=== PATIENT | male | born 1950 | race Caucasian/White ===

== ENCOUNTER 2018-05-04 19:53 | Emergency (ER) | payer OTHER ==
[~2018-05-04] VITALS: Ht 170.2 cm; Wt 152.0 kg
[~2018-05-04 19:53] MED LIST: ADULT LOW DOSE81 MG OR; ALDACTONE50 MG PO; ALLOPURINOL 30300 M2 PO; AMLODIPINE BESYL5 MG PO; ATIVAN1 MG PO; AUGMENTIN 875875 MG PO; COUMADIN 10MG T10 M1; CYTOMEL 5MCG TA5 MCG PO; DEPAKOTE ER500 MG PO; DILTIAZEM 24HR180 MG; FISH OIL 1,0001 EAC5 OR; FUROSEMIDE 20 M20 M1 PO; GLUCOPHAGE500 MG PO; HYDROCHLOROTHIA25 M1 OR; HYDROXYZINE HCL25 M1; INVEGA3 MG OR; K-DUR10 ME1 OR; LANOXIN 0.120.125 M1; LANTUS SUBQ; LASIX 40 MG TAB40 M1 OR; LASIX 40 MG TAB40 M2 PO; LEVOXYL125 MCG PO; LEVOXYL150 MCG OR; LISINOPRIL2.5 MG; LISINOPRIL40 MG OR; MAGNESIUM400 MG; NAPROSYN500 MG PO; NIFEDIPINE ER90 M1 OR; OS-CAL 500+D C1 EACH; POTASSIUM20 PO; RANITIDINE 150150 M1; SEROQUEL XR 30300 MG PO; SIMVASTATIN20 MG; SIMVASTATIN80 MG PO; SLOW-MAG64 MG; SMOOTHLAX17 GM OR; THEREMS M; TRICOR OR; TYLENOL325 MG PO; XANAX 0.25 MG0.25 MG PO; XARELTO20 MG PO; ZANTAC 150MG T150 MG PO; ZAROXOLYN 2.5M2.5 M1; ZETIA10 MG; ZETIA10 MG PO; ZOCOR40 MG PO
[2018-05-04 19:54] VITALS: BP 144/71
[2018-05-04 20:21] LABS: ABSOLUTE NEUTROPHILS 3.9 thou/uL (1.4-8.2); EOSINOPHILS 0.9 % (0.0-3.0); WBC 8.7 thou/uL (4.0-11.0)
[2018-05-04 20:23] LABS: BASOPHILS 1.1 % (0.0-2.0); HEMATOCRIT 43.4 % (42.0-52.0); HEMOGLOBIN 15.1 gm/dL (14.0-18.0); LYMPHOCYTES 42.6 % (24.0-44.0); MCH 30.7 pg (26.0-34.0); MCHC 34.7 g/dL (28.0-37.0); MCV 88.4 fL (80.0-100.0); MONOCYTES 10.8 % (1.0-8.0); PLATELET COUNT 259 thou/uL (150-400); POLYS 44.6 % (36.0-66.0); RBC 4.91 mil/uL (4.50-6.00); RDW 14.5 % (10.5-14.5)
[2018-05-04 20:25] LABS: CALCIUM 10.7 mg/dL (8.5-10.1); CREATININE 1.7 mg/dL (0.7-1.3)
[2018-05-04 20:29] LABS: POTASSIUM 2.4 mmol/L (3.5-5.1)
[2018-05-04 20:39] LABS: APTT 39.9 Seconds (24.5-32.8); INR 1.3; PROTIME 13.3 Seconds (9.3-11.4)
[2018-05-04] MEDS ORDERED: POTASSIUM20 PO (23:47)
--- NOTE | 2018-05-05 10:52 | EKG ---
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 ��������������������������������������������� <ELECTRONICALLY SIGNED> ���������������������������������������� By: Lloyd Vasquez MD ��������������������������������������������� [id number] 22 22 Lloyd Vasuqez MD /PABLO
== END 2018-05-05 01:13 ==
LOC: ER 19:53
PROVIDERS: Emergency Medicine
DX: E87.6 Hypokalemia (principal); R10.84 Generalized abdominal pain; Z79.01 Long term (current) use of anticoagulants; I10 Essential (primary) hypertension; F03.90 Unspecified dementia, unspecified severity, without behavioral disturbance, psychotic disturbance, mood disturbance, and anxiety; M10.9 Gout, unspecified; E78.5 Hyperlipidemia, unspecified; F31.9 Bipolar disorder, unspecified; E03.9 Hypothyroidism, unspecified; E66.01 Morbid (severe) obesity due to excess calories; I73.9 Peripheral vascular disease, unspecified; I48.91 Unspecified atrial fibrillation; Z87.891 Personal history of nicotine dependence; Z68.43 Body mass index [BMI] 50.0-59.9, adult

== ENCOUNTER 2018-12-01 09:26 | Inpatient (IN) | payer OTHER ==
[~2018-12-01] VITALS: Ht 172.7 cm; Wt 144.2 kg
[2018-12-01 09:27] VITALS: BP 153/81
[2018-12-01 09:48] LABS: BASOPHILS 0.4 % (0.0-2.0); HEMATOCRIT 40.2 % (42.0-52.0); HEMOGLOBIN 13.6 gm/dL (14.0-18.0); LYMPHOCYTES 5.8 % (24.0-44.0); MCHC 33.9 g/dL (28.0-37.0); MCV 88.4 fL (80.0-100.0); MONOCYTES 6.6 % (1.0-8.0); PLATELET COUNT 230 thou/uL (150-400); POLYS 87.2 % (36.0-66.0); RBC 4.54 mil/uL (4.50-6.00); RDW 13.9 % (10.5-14.5); WBC 19.5 thou/uL (4.0-11.0)
[2018-12-01 09:48] LABS: URINE BLOOD 3+ (Negative); URINE CLARITY CLEAR; URINE GLUCOSE-RANDOM* NEGATIVE (Negative); URINE KETONES TRACE (Negative); URINE LEUKOCYTES-REFLEX NEGATIVE (Negative); URINE NITRITE-REFLEX NEGATIVE (Negative); URINE PROTEIN (DIPSTICK) 3+ (Negative); URINE SPECIFIC GRAVITY 1.025 (1.005-1.035)
[2018-12-01] MEDS ORDERED: LASIX 80 MG TAB80 MG PO (09:51)
[2018-12-01] MEDS ORDERED: LEVOTHYROXINE150 MCG PO (09:53)
[2018-12-01] MEDS ORDERED: LORAZEPAM 1 MG T1 MG PO (09:54)
[2018-12-01] MEDS ORDERED: METOLAZONE 2.52.5 M1 PO (09:55)
[2018-12-01 09:56] LABS: URINE COLOR DARK YELLOW
[2018-12-01] MEDS ORDERED: LIPITOR40 MG PO (09:57)
[2018-12-01 09:58] LABS: ICTOTEST (BILI CONFIRMATORY) Negative (Negative); URINE BILIRUBIN NEGATIVE (Negative)
[2018-12-01] MEDS ORDERED: FISH OIL 1,0001 EAC9 PO (09:58)
[2018-12-01 09:59] LABS: ALBUMIN 2.8 g/dL (3.4-5.0); CALCIUM 9.2 mg/dL (8.5-10.1); CREATININE 1.8 mg/dL (0.7-1.3); DIRECT BILIRUBIN 0.3 mg/dL (<0.1-0.3); MAGNESIUM 1.5 mg/dL (1.8-2.4); TOTAL BILIRUBIN 0.8 mg/dL (<0.1-1.0); TOTAL PROTEIN 7.8 g/dL (6.4-8.2)
[2018-12-01] MEDS ORDERED: LACTULOSE10 GM/152 PO (09:59)
[2018-12-01] MEDS ORDERED: FLUOXETINE HCL20 M1 PO (09:59)
[2018-12-01 10:01] LABS: POTASSIUM 2.7 mmol/L (3.5-5.1)
[2018-12-01] MEDS ORDERED: OYSTER SHELL 51 EACH PO (10:02)
[2018-12-01] MEDS ORDERED: BOUDREAUXS28 GM TOP (10:04)
[2018-12-01 10:15] LABS: CASTS None Seen /LPF (None Seen); SQUAMOUS 0-3 Few /LPF (0-3)
[2018-12-01 10:16] LABS: BACTERIA-REFLEX 1-9 Few /HPF (None Seen); CRYSTALS None Seen /LPF (None Seen); MUCUS 4-6 Moderate strn/LPF (None Seen); URINE RBC 0-2 Rare /HPF (0-2); URINE WBC-REFLEX 0-5 Rare /HPF (0-5)
[2018-12-01 10:18] LABS: URINE SODIUM-RANDOM* 31 mmol/L
[2018-12-01 10:26] LABS: URINE CREATININE-RANDOM* <13 mg/dL
--- NOTE | 2018-12-01 16:25 | NUR ---
VAT CONSULTED FOR A LINE FOR THIS PT IN THE ER FOR POSS SEPSIS AND TONI. A 5FRTLPOWERLINE PLACED RT IJ. TIP IN THE CAJ AND RELEASED FOR USE. FOR DETAILS PLEASE SEE THE INSERTION NI
[2018-12-01 16:37] VITALS: BP 149/78
[2018-12-01 17:27] LABS: TOTAL PROTEIN 7.9 g/dL (6.4-8.2)
[2018-12-01 18:15] LABS: TSH 0.526 uIU/mL (0.358-3.740)
[2018-12-01 20:55] VITALS: BP 118/96
[2018-12-01 21:25] VITALS: BP 148/87
[2018-12-02 02:43] LABS: HEMATOCRIT 32.9 % (42.0-52.0); MCH 29.4 pg (26.0-34.0); MCHC 32.8 g/dL (28.0-37.0); MCV 89.8 fL (80.0-100.0); RBC 3.67 mil/uL (4.50-6.00); RDW 14.2 % (10.5-14.5); WBC 12.5 thou/uL (4.0-11.0)
[2018-12-02 02:52] LABS: CREATININE 1.3 mg/dL (0.7-1.3); MAGNESIUM 1.7 mg/dL (1.8-2.4)
[2018-12-02 03:01] LABS: CALCIUM 6.8 mg/dL (8.5-10.1); HEMOGLOBIN 10.8 gm/dL (14.0-18.0); POTASSIUM 4.9 mmol/L (3.5-5.1)
--- NOTE | 2018-12-02 03:40 | NUR ---
ADMIT FROM ER AROUND 2100. VSS. ASSESSMENT CHARTED. PT ALERT TO SELF AND PLACE AT TIMES, CONFUSED AND FORGETFUL. NO ANSWER FROM DPOA. PT ANSWERED ADMISSSION QUESTIONS THE BEST HE COULD UNABLE TO SIGN. SCHMIDT IN PLACE. PT IN BED STATED NOT SURE IF HE USES WALKER, W/C, OR CANE, HAS NOT AMBULATED THI SHIFT. 2 L NC. ABX AND FLUIDS PER EMAR. WILL CONTINUE TO MONITOR AND WITH POC.
[2018-12-02 03:45] VITALS: BP 126/69
[2018-12-02 08:22] VITALS: BP 121/69
--- NOTE | 2018-12-02 09:19 | EKG ---
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 : 1950 Requested By: Josue Flores Order Number: [id number] MD: Amrik Donaldson Measurements Intervals [place] Rate: 96 P: 180 MT: 188 QRS: -51 QRSD: 126 T: 6 QT: 422 QTc: 534 Interpretive Statements Sinus or ectopic atrial rhythm LAFB Nonspecific intraventricular conduction delay Poor R wave progression Compared to ECG 05/04/2018 21:23:48 no significant change was found Electronically Signed On 12-02-2018 9:19:20 CDT by Amrik Donaldson [email or web address] <ELECTRONICALLY SIGNED> By: Amrik Donaldson MD, FAC 12/02/18918 8 8 Amrik Donaldson MD, [facility] /EPI
--- NOTE | 2018-12-02 11:54 | NUR ---
ASSUMED PT CARE AT APPROXIMATELY 0700. PT AWAKE AND ORIENTED TO SITUATION, SELF, AND LOCATION. PT FORGETFUL. PROVIDED FREQUENT REORIENTATION. PT DENIES CHEST PAIN. PT DENIES SOB. PT DENIES ACUTE PAIN. ASSESSMENT CHARTED. FALL PRECAUTIONS IN PLACE. VITAL SIGNS STABLE. BLOOD SUGARS STABLE. PT TRANSFERRING TO [facility]. RN ON 4 RECIEVED VERBAL REPORT. RN DENIED HAVING FURTHER QUESTIONS OR CONCERNS. COMMUNICATED C PT'S DPOA THIS AM AND EDUCATED POC. DPOA STATED UNDERSTANDING AND DENIED HAVING FURTHER QUESTIONS. PT COMFORTABLE IN BED. PT TRANSFERRED OFF [facility] TRAN[facility]ORT AT APPROXIMATELY 1130.
--- NOTE | 2018-12-02 16:29 | NUR ---
PATIENT A/O ADMITS FROM [facility] WITH CELLULITIS. HE DOES NOT WEAR OXYGEN AT FACILITY BUT FEELS HE NEEDS UPON RETURN. PLAN FOR PATIENT TO RETURN TO [facility] AT [place]. UPDATED BROTHER.
--- NOTE | 2018-12-02 19:42 | NUR ---
PATIENT TRANSFER FROM [facility] AT NOON. ALERT X2, REPEATS SAME QUESTIONS, AND CALLS FOR SNACKS FREQUENTLY. POOR HISTORIAN, FROM [facility]. DR HUTSON ROUND WITH NEW ORDERS FOR WOUND CARE. MAX ASSIST OR SLIDE/JUAN MANUEL DEVICE. FALL PRECAUTIONS IN PLACE.
[2018-12-02 20:52] VITALS: BP 126/72
--- NOTE | 2018-12-03 01:56 | NUR ---
Assessments completed. pt a&ox2. pt is confused. pt pulled out picc line. pt stated that "it was hurting, so i pulled it out". catheter intact, measures 28cm where it was cut off during insertion. PHARMACOEPIDEMIOLOGIST notified. pt is very confused and agitated, trying to get out of bed and go to his room, he stated. one time dose of iv haldol was ordered. fall prec in place. will cont to monitor
[2018-12-03 04:04] VITALS: BP 98/80
[2018-12-03 07:11] LABS: HEMATOCRIT 35.8 % (42.0-52.0); HEMOGLOBIN 11.8 gm/dL (14.0-18.0); MCH 29.4 pg (26.0-34.0); MCHC 33.1 g/dL (28.0-37.0); RBC 4.02 mil/uL (4.50-6.00); RDW 14.4 % (10.5-14.5); WBC 12.2 thou/uL (4.0-11.0)
[2018-12-03 07:31] LABS: ALBUMIN 2.3 g/dL (3.4-5.0); CALCIUM 8.5 mg/dL (8.5-10.1); CREATININE 1.3 mg/dL (0.7-1.3); MAGNESIUM 1.9 mg/dL (1.8-2.4); PHOSPHORUS 1.7 mg/dL (2.5-4.9); POTASSIUM 3.5 mmol/L (3.5-5.1)
[2018-12-03 08:12] VITALS: BP 139/72
[2018-12-03 14:46] VITALS: BP 130/51
--- NOTE | 2018-12-03 15:54 | NUR ---
ASSUMED CARE OF PT AT APPROX 0700. PT IS ALERT AND ORIENTED TO SELF AND PLACE. FORGETFUL, BUT EASILY REORIENTED. DENIES PAIN AND SOA. EVEN NONLABORED BREATHING WHILE AT REST. DOES BECOME SOA WITH ACTIVITY BUT ABLE TO MAINTAIN 02 SAT >90 ON NC 02 SETTINGS. ASSESSMENT CHARTED. PT IN BEDSIDE CHAIR FOR MOST OF DAY. UPDATED ON POC. NO NEW QUESTIONS OR CONCERNS AT THIS TIME. WILL CONTINUE TO MONITOR.
[2018-12-03 22:37] VITALS: BP 141/62
--- NOTE | 2018-12-04 03:44 | NUR ---
ASSUMED CARE OF PT @1900. PT A&OX3 BUT CONFUSED AND VERY FORGETFUL. PT HAS BEEN SLEEPING ON AND OFF ALL NIGHT. PT IS NPO @MIDNIGHT FOR POSSIBLE SURGERY TODAY. PT WAS FED BEFORE MIDNIGHT BUT PT HAS BEEN REQUESTING FOOD FOR MOST OF THE NIGHT. NEW ORDERS OF GENTAMYCIN WAS GOTTEN AND APPLIED ON PATIENTS LOWER EXT AND COVERED WITH KERLIX. PICTURES WERE TAKEN. PT WAS ANXIOUS WHEN NURSE MENTIONED THAT SCHMIDT WAS TO BE TAKEN OUT. SCHMIDT STILL IN PLACE AND PATENT. PT HAS LABORED BREATHING WITH UPPER RESPIRATORY WHEEZES. RT WAS CALLED FOR PRN NEB TX. FALL PREC IN PLACE. CALL THOMPSON WITHIN REACH. WILL CONT TO MONITOR
[2018-12-04 05:41] LABS: RDW 14.5 % (10.5-14.5)
[2018-12-04 05:44] LABS: HEMATOCRIT 35.2 % (42.0-52.0); HEMOGLOBIN 11.4 gm/dL (14.0-18.0); MCH 29.2 pg (26.0-34.0); MCHC 32.5 g/dL (28.0-37.0); MCV 90.1 fL (80.0-100.0); RBC 3.91 mil/uL (4.50-6.00); WBC 13.1 thou/uL (4.0-11.0)
[2018-12-04 06:04] LABS: CALCIUM 8.6 mg/dL (8.5-10.1); CREATININE 1.2 mg/dL (0.7-1.3); MAGNESIUM 1.9 mg/dL (1.8-2.4); POTASSIUM 3.3 mmol/L (3.5-5.1)
[2018-12-04 07:17] VITALS: BP 149/77
--- NOTE | 2018-12-04 11:52 | NUR ---
RD consult received for pt with PVD/sepsis with bilateral lower extremity cellulitis. Pt with schizophrenia, bipolar, dementia and forgetful and confused. Extreme class III obesity with BMI of 48.3, slightly less from 2016 wt 325 lb. Appetite is good, asking for food. BG controlled. Geriatric COUNTER PERSON requesting high protein, low calorie supplementation-can send Ensure Max 1x day which provides 160 mary and 30g protein. Otherwise low nutrition risk
[2018-12-04 15:25] VITALS: BP 140/70
[2018-12-04 19:09] VITALS: BP 156/93
--- NOTE | 2018-12-04 19:40 | NUR ---
PT A&OX4, VSS, DENIES PAIN. SCHMIDT DC'D TODAY, PATIENT URINATING AFTER SCHMIDT REMOVAL. IV IN LEFT FOREARM REMAINS PATENT. PATIENT ON 3L O2 NC, BREATHING IN HIGH THOMAS POSITION LABORED, LUNGS CLEAR, NO WHEEZING THIS A.M. PATIENT STARTS TO HAVE SOA WHEN BED IS FLAT FOR JOHN CARE, AND WHEN PARTICIPATING IN PHYSICAL THERAPY. DRESSING CHANGED BILAT LE PER ORDERS. RIGHT LEG RED, EDEMATOUS. LEFT LEG PINK AND EDEMATOUS. EDEMA MORE PRONOUNCED IN RIGHT LEG AND FOOT. NO SIGNS OF DISTRESS, WILL CONTINUE TO MONITOR.
[2018-12-05 02:47] VITALS: BP 139/74
[2018-12-05 05:35] LABS: HEMATOCRIT 36.7 % (42.0-52.0); HEMOGLOBIN 12.4 gm/dL (14.0-18.0); MCH 29.9 pg (26.0-34.0); MCHC 33.7 g/dL (28.0-37.0); MCV 88.7 fL (80.0-100.0); RBC 4.14 mil/uL (4.50-6.00); RDW 14.8 % (10.5-14.5); WBC 14.8 thou/uL (4.0-11.0)
[2018-12-05 05:41] LABS: CALCIUM 8.6 mg/dL (8.5-10.1); MAGNESIUM 1.8 mg/dL (1.8-2.4); POTASSIUM 3.5 mmol/L (3.5-5.1)
[2018-12-05 05:45] LABS: APTT 34.5 Seconds (24.5-32.8); PROTIME 10.5 Seconds (9.3-11.4)
--- NOTE | 2018-12-05 06:48 | NUR ---
assessments completed. pt a&ox2. very forgetful and confuse. pt consisting asking over the night what time his surgery will be and if he could eat. pt has been npo after midnight. pt is incont. requires 2person assist. dressing on dharmesh. legs clean, dry and intact. legs elevated with multiple pillows. plan is to have angiogram done today. pt is wheezy and soa on exertion. breathing tx on board. v/s and o2 sats wnl. will cont to monitor
[2018-12-05 07:42] VITALS: BP 137/82
--- NOTE | 2018-12-05 12:56 | 2DMMODE ---
[facility] [address] [place] [address] 2 D/M-MODE ECHOCARDIOGRAM Name: MICHELLEMAUREEN Room #: 453-P [facility] ..#: [id number] Admission: 12/01/18 Attend Phys: Sukumar Bush, Discharge: Date of : 54 Report #: [id number] THIS REPORT FOR: //name// APPROVED REPORT Study performed: 12/05/2018 11:03:01 EXAM: Comprehensive 2D, Doppler, and color-flow Echocardiogram Patient Location: Bedside Room #: [facility] Status: routine BSA: 2.49 HR: 83 bpm BP: 137/82 mmHg Other Information Study Quality: Technically Limited/Technically Difficult Technically limited study due to body habitus, lung disease, inability to position patient. Indications Diabetes Atrial Fibrillation Dyspnea Echo Enhancing Agent Indication: Endocardial border delineation Agent(s) / Amount(s) Used: Optison 3 cc 2D Dimensions IVSd: 16.44 (7-11mm) LVOT Diam: 19.90 (18-24mm) LVDd: 43.51 mm PWd: 16.32 (7-11mm) Ascending Ao: 37.43 (22-36mm) LVDs: 27.42 (25-40mm) Aortic Root: 31.76 mm IVC: 20.00 mm Volumes Left Atrial Volume (Systole) Single Plane 4CH: 52.96 mL Single Plane 2CH: 44.13 mL LA ESV Index: 21.00 mL/m2 Aortic Valve AoV Peak Akin.: 1.50 m/s AO Peak Gr.: 9.00 mmHg LVOT Max P.02 mmHg LVOT Max V: 1.12 m/s [facility] [address] [place] [address] 2 D/M-MODE ECHOCARDIOGRAM Name: MAUREEN MARTINEZ Room #: 453-[facility]#: [id number] Admission: 12/01/18 Attend Phys: Sukumar Bush, Discharge: Date of : 54 Report #: [id number] [id number] Vmax: 2.32 cm2 Mitral Valve E/A Ratio: 1.3 MV Decel. Time: 134.40 ms MV E Max Akin.: 0.91 m/s MV A Akin.: 0.69 m/s MV PHT: 38.98 ms Pulmonary Valve PV Peak Akin.: 1.40 m/s PV Peak Gr.: 7.88 mmHg Tricuspid Valve RAP Estimate: 10.00 mmHg Left Ventricle The left ventricle is normal size. Moderate concentric left ventricular hypertrophy. Left ventricular systolic function is hyperdynamic. LVEF is 70%. This study is not technically sufficient to allow evaluation of the LV diastolic function. Right Ventricle Right ventricle appears grossly normal in size. Atria The left atrium size is normal. The right atrium size is normal. Aortic Valve The aortic valve is normal in structure. No aortic regurgitation is present. There is no aortic valvular stenosis. Mitral Valve The mitral valve is normal in structure. There is no mitral valve regurgitation noted. No evidence of mitral valve stenosis. Tricuspid Valve The tricuspid valve is normal in structure. There is no tricuspid valve regurgitation noted. Pulmonic Valve The pulmonary valve is normal in structure. Trace pulmonic regurgitation. Great Vessels The aortic root is normal in size. IVC is normal in size and [facility] [address] [place] [address] 2 D/M-MODE ECHOCARDIOGRAM Name: MAUREEN MARTINEZ Lala Room #: 453-P ADM IN M.R.#: [id number] Admission: 12/01/18 Attend Phys: Sukumar Bush, Discharge: Date of : 54 Report #: [id number] collapses <50% with inspiration. Pericardium There is no pericardial effusion. <Conclusion> technically extremely limited with decreased windows of visualization The left ventricle is normal size. LVEF is 70%. The left atrium size is normal. The right atrium size is normal. The aortic valve is normal in structure. The mitral valve is normal in structure. The tricuspid valve is normal in structure. There is no pericardial effusion. <ELECTRONICALLY SIGNED> By: Bridger Bowers MD 12/05/18 1256 1256 1256 Bridger Bowers MD /INF
--- NOTE | 2018-12-05 13:12 | NUR ---
PT HAD BEEN SCHEDULED FOR AN ANGIOGRAM TODAY BUT IT HAD BEEN POSTPONED DUE TO SOB. CARE TEAM INDICATED THAT PT IS IS PROGRESSING SLOWLY AND WILL LIKELY BE HERE OVER THE WEEKEND. PT WILL RETURN TO [facility] ONCE MEDICALLY STABLE. CM TO FOLLOW INDICATED WITH DC PLANNING.
[2018-12-05 13:43] VITALS: BP 155/99
[2018-12-05 17:32] LABS: BE(vivo) -0.8 mmol/L (-2 to +3); PCO2 45.7 mmHg (35.0-45.0); PO2 174.1 mmHg (80.0-100.0); pH 7.356 (7.360-7.450); sO2 99.1 % (92.0-98.0)
[2018-12-05 19:30] VITALS: BP 170/108
--- NOTE | 2018-12-05 20:28 | NUR ---
pt transfered from 4 W at 1900pm, PT is SOB and confused, RN has called dr , new order received, pt has one time dose lasix 40mg iv and starts IV ABX, pt's sob has improved, RN will report to next shift to keep eye on pt.
--- NOTE | 2018-12-05 21:22 | NUR ---
PT A&O TO SELF, PT ON 3L O2 NC, WHEEZING, LABORED BREATHING, SOA. VSS 02 SATS AVERAGE 96% ANGIOGRAM CANCELED D/T LABORED BREATHING. PATIENT IN HIGH FOWLERS THROUGHOUT DAY. CHEST EXAMS ORDERED BY DOCTOR. PATIENT ON 1500 MLK FLUID RESTRICTION. PATIENT HAS HEARTY APPETITE AND TOLERATING DIET. APPROX. 1700 RAPID RESPONSE CALLED D/T PATIENT FOUND IN RESPIRATORY DISTRESS. PATIENT HAD TAKEN OFF OXYGEN. DOCTOR NOTIFIED, ORDERS GIVEN, PATIENT PLACED ON TELEMETRY AND TRANSFERED TO . PATIENT BREATHING WAS STABALIZED, R/T ON BOARD, AND TELE MONITOR PLACED BEFORE SENDING PATIENT TO NEW ROOM. REPORT GIVEN TO ACCEPTING NURSE.
[2018-12-05 22:58] LABS: BE(vivo) 2.7 mmol/L (-2 to +3); HCO3 29.5 mmol/L (22.0-26.0); PO2 65.3 mmHg (80.0-100.0); pH 7.347 (7.360-7.450); sO2 91.5 % (92.0-98.0)
[2018-12-05 23:23] VITALS: BP 144/99
[2018-12-06 01:27] VITALS: BP 164/92
[2018-12-06 01:57] LABS: HEMATOCRIT 35.4 % (42.0-52.0); HEMOGLOBIN 11.5 gm/dL (14.0-18.0); MCHC 32.5 g/dL (28.0-37.0); MCV 89.3 fL (80.0-100.0); RBC 3.97 mil/uL (4.50-6.00); RDW 14.8 % (10.5-14.5); WBC 11.6 thou/uL (4.0-11.0)
[2018-12-06 02:05] LABS: CALCIUM 9.2 mg/dL (8.5-10.1); CREATININE 1.1 mg/dL (0.7-1.3); POTASSIUM 3.4 mmol/L (3.5-5.1)
[2018-12-06 02:51] LABS: BE(vivo) 4.9 mmol/L (-2 to +3); HCO3 30.5 mmol/L (22.0-26.0); PCO2 49.6 mmHg (35.0-45.0); PO2 82.4 mmHg (80.0-100.0); pH 7.407 (7.360-7.450); sO2 96.1 % (92.0-98.0)
[2018-12-06 03:16] VITALS: BP 135/66
[2018-12-06 07:41] VITALS: BP 126/52
--- NOTE | 2018-12-06 07:52 | NUR ---
ASSUMED CARE AT 1900. PT TRANSFERRED TO FLOOR AT SHIFT CHANGE, DAY NURSE GAVE IV LASIX AND HAD A BREATHING TREATMENT; PT STABLE AND BREATHING COMFORTABLY. PT WANTED TO EAT DINNER, TOLERATED WELL, NO PAIN OR SOB. WHILE ASSESSING PT ABOUT 2100, PT HAD INCREASING SOB WHILE SPEAKING AND TAKING PILLS, REQUIRING MORE EFFORT TO GET BREATHS AND GROWING INCREASINGLY FORGETFUL AND FRUSTRATED, NOT REMEMBERING WHAT STAFF TOLD HIM. GIVEN PRN RT TREATMENT, OBTAINED ORDER FOR ROXANA FOR ACCURATE I&O, STAT CXR. GIVEN 1x DOSE OF SOLUMEDROL IVP, O2 INCREASED FROM 3L TO 5L. PT EVENTUALLY CALMED DOWN AND SLEPT. CHECK OF PT ABOUT AN HOUR LATER, VERY LETHARGIC, POORLY RESPONDING TO PAINFUL STIMULI OR STAFF VOICES. TACHYPNIC WITH RR >30, LOW GRADE TEMP 99.3 AXILLARY. OBTAINED ORDER FOR 1x DOSE IVP LASIX AND PT WAS PLACED ON BIPAP. 300 ML URINE OUT PRIOR TO LASIX; 750 ML OUT POST-LASIX. TOLERATED BIPAP UNTIL ABOUT 0600 WHEN HE WOKE UP AND ASKED ABOUT THE MASK. BREATHING RATE SLOWED, USING FEWER ACCESSORY MUSCLES, NO LONGER DIAPHORETIC. GIVEN MEDS AND SIP OF WATER, PLACED BACK ON MASK, BUT ABOUT 30 MINUTES LATER BEGAN YELLING AND NOT REDIRECTABLE. TOOK BIPAP OFF AND PLACED BACK ON 5L O2 NC. SHIFT REPORT GIVEN 0700, PT IN STABLE CONDITION.
--- NOTE | 2018-12-06 08:45 | EKG ---
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 : 1950 Requested By: Sukumar Bush Order Number: [id number] MD: Amrik Donaldson Measurements Intervals [place] Rate: 103 P: 75 WA: 218 QRS: -35 QRSD: 114 T: 76 QT: 347 QTc: 454 Interpretive Statements Sinus tachycardia Prolonged [place] interval Nonspecific intraventricular conduction delay Abnormal R-wave progression, late transition Compared to ECG 12/01/2018 09:29:59 No significant change was found Electronically Signed On 12-06-2018 8:45:02 CDT by Amrik Donaldson [email or web address] <ELECTRONICALLY SIGNED> By: Amrik Donaldson MD, [facility] 12/06/18 0845 1723 1723 Amrik Donaldson MD, [facility] /EPI
[2018-12-06 11:29] VITALS: BP 154/74
--- NOTE | 2018-12-06 12:05 | NUR ---
DISCHARGE PLANNING. PATIENT RESIDES AT [facility]. PLAN IS FOR PATIENT TO RETURN TO [facility] ONCE MEDICALLY READY FOR DISCHARGE. DISCHARGE ANTICIPATED FOR THE BEGINNING OF NEXT WEEK. UPDATED CLINICAL INFORMATION FAXED TO JIMMY [facility] LIAISON. CALL PLACED TO JIMMY TO NOTIFY. FOLLOWING TO ASSIST.
--- NOTE | 2018-12-06 15:34 | NUR ---
BIBIANA reviewed chart and spoke with nursing and attending physician. Pt was transferred to 3W from 4W due to change in respiratory status. Pt is on O2 via NC and tolerating well. Pt has not had angiogram done yet. Pt may be ready to discharge back to [facility] of the weekend. order planner notified [facility] staff. BIBIANA spoke with pt's brother, Vinny and [id number], Nelly, via phone to provide update and notify of possible weekend discharge. Pt's family is aware and agreeable with discharge plan. Final discharge orders/summary will need to be faxed when available. Chart copy will need to be completed and nursing will need to call report. BIBIANA is available to assist as needed. [facility]--
[2018-12-06 15:51] VITALS: BP 134/59
--- NOTE | 2018-12-06 17:13 | HC ---
[facility] [place] [address] CONSULTATION Name: MAUREEN MARTINEZ Lala Room #: 362-P [facility] IN .R.#: [id number] Admission: 12/01/18 Attend Phys: Sukumar Bush MD Discharge: Date of : 54 Report #: [id number] THIS REPORT FOR: //name// CC: Sukumar Turcios DATE OF SERVICE: 12/02/2018 CHIEF COMPLAINT: Bilateral lower extremity cellulitis. HISTORY OF PRESENT ILLNESS: This is a 68-year-old male patient who was admitted to the hospital with a history of bipolar and dementia, who was noted to have increasing high blood sugar as well as swelling, redness and drainage from both of his legs. He denies pain, but his history is very unreliable due to his underlying mental health and/or dementia issues. PAST MEDICAL HISTORY: Per the patient's records include hypertension, mental retardation, dementia, hyperlipidemia, gout, chronic kidney disease, bipolar disorder, dermatitis of the lower extremities, hypothyroidism, morbid obesity, peripheral vascular disease, atrial fibrillation, edema, schizoaffective disorder and obesity. SOCIAL HISTORY: Negative for alcohol or current tobacco use. He is a previous smoker. FAMILY HISTORY: Unknown. REVIEW OF SYSTEMS: Unobtainable due to the patient's mental status. ALLERGIES: None. MEDICATIONS: Fish oil, TriCor, Depakote, hydroxyzine, Glucophage, Mag-Ox, amlodipine, Tylenol, Zetia, Lasix, lorazepam, metolazone, Lipitor, fluoxetine, lactulose, zinc oxide. PHYSICAL EXAMINATION: VITAL SIGNS: At this time include temperature 36.6, pulse rate 75, blood pressure 121/69, respiratory rate 17. GENERAL: This is a chronically ill-appearing male patient who appears to be in no distress. HEENT: Head normocephalic. ____ and throat clear. NECK: Supple. ABDOMEN: Soft. Bowel sounds present. EXTREMITIES: Lower extremities demonstrate diminished distal pulses. He has significant erythema from his feet up to just below his knees bilaterally. There is some dry flaky skin consistent with venous dermatitis. [facility] [address] [place] [address] CONSULTATION Name: MICHELLEMAUREEN Lala Room #: 362-P [facility] IN [facility].#: [id number] Admission: 12/01/18 Attend Phys: Sukumar Bush MD Discharge: Date of : 54 Report #: [id number] NEUROLOGIC: The patient is alert. He is disoriented. LABORATORY DATA: White blood cell count 12.5 down from 19.5 on admission, hemoglobin 10.8. Sodium 138, potassium 4.9, chloride 106, CO2 of 22, BUN is 10, creatinine is 1.3, glucose 167. Albumin is low at 2.8. CLINICAL IMPRESSION: 1. Cellulitis, bilateral lower extremities. 2. Sepsis secondary to lower extremity cellulitis. 3. Paroxysmal atrial fibrillation. 4. Hypokalemia. 5. Moderate protein-calorie malnutrition. 6. Chronic kidney disease stage 3. 7. Dementia. 8. Type 2 diabetes mellitus. RECOMMENDATIONS: At this point in time, we will recommend topical triamcinolone cream, Xeroform gauze, ABD, Kerlix. We will consider Elijah wraps after reviewing arterial Doppler studies. Recommend elevation of lower extremities and nutrition to maximize wound healing and maintain glycemic control. Continue with current medications. I appreciate being asked to see him in consultation. <ELECTRONICALLY SIGNED> By: Mars Sanders MD 12/06/18 1713 1854 0016 Mars Sanders MD /nt
--- NOTE | 2018-12-06 17:58 | NUR ---
PT UP TO BEDSIDE TO DANGLE LEGS WITH PT TODAY. PT FREQUENTLY REQUESTING WATER EVEN THOUGH HE IS AWARE OF 1500ML FLUID RESTRICTION.
[2018-12-06 19:39] VITALS: BP 158/77
--- NOTE | 2018-12-07 03:09 | NUR ---
Pt. calls frequently , forgetful and needs a lot of attention despite meeting his needs. Requires frequent redirection and reminders. Repositioned prn for comfort.Able to turn self from side to side. Frequently ask for water and reminded of fluid restriction due to his condition. He agrees then calls again. O2 at 3L/NC then had BIPAP on from 2340 till 0200. Refused BIPAP back on. Bilateral lower extremities with dressing dry and intact. Bed alarm on for safety.Making progress towards care plan goals.
[2018-12-07 03:40] VITALS: BP 142/72
[2018-12-07 08:08] VITALS: BP 146/75
[2018-12-07 10:41] LABS: CALCIUM 9.2 mg/dL (8.5-10.1); POTASSIUM 3.1 mmol/L (3.5-5.1)
[2018-12-07 12:15] VITALS: BP 156/90
[2018-12-07 15:39] VITALS: BP 157/82
--- NOTE | 2018-12-07 17:08 | NUR ---
PT is A&OX3, but pt is forgetful , pt is continuing o2 3L/MIN/NC, IV abx and wound care , pt's vs and o2sat are stable , pt denies pain , sob , and n/v , RN has called dr to report abnormal lab results , kcl 40 meq po x 1 time for potassium 3.1, pt has slowly meeting care plan goals.
[2018-12-07 20:22] VITALS: BP 145/78
--- NOTE | 2018-12-08 04:39 | NUR ---
PT COULD DC BACK TO [facility] TODAY. PT HAS HIGH LEVEL OF ANXIETY AND IS IMPULSIVE, AND INAPPROPRIATE. SEXUAL COMMENTS BY PT CAUSED DISGUST. PT HOLLERS OUT FREQUENTLY. ONE TIME DOSE OF HALIDOL GIVEN TO REDUCE ANXIETY. GOOD RESULTS FOR 2 HRS. THEN PT TRYING TO CLIMB OUT OF THE BED AGAIN AND YELLING OUT AND ABUSING CALL LIGHT. CALLED AND RECEIVED ORDERS FOR PO 1 MG HALIDOL Q6 PRN, SO FAR GOOD SUCCESS. FOLLOWING POC WITH IVPB. ALSO WILL RESTART PT PROZAC IN AM. PT IS INCONTINENT TO BOWEL AND SCHMIDT IN PLACE. Q2 TURNS AND HOURLY ROUNDING.
[2018-12-08 05:34] VITALS: BP 153/85
[2018-12-08 08:36] VITALS: BP 150/80
[2018-12-08 12:01] VITALS: BP 167/83
[2018-12-08 18:50] VITALS: BP 163/81
--- NOTE | 2018-12-08 19:28 | NUR ---
Patient received IV ABX today. He struggled with emotional regulation and orientation through the shift. Patient accused staff of hiding his personal belongings. Patient received PRN haldol as ordered this afternoon.
[2018-12-08 20:22] VITALS: BP 166/83
[2018-12-09 04:17] VITALS: BP 155/86
--- NOTE | 2018-12-09 04:43 | NUR ---
alert to person place and time this am, unsure of reason for admission. he is calm and cooperaitve this am. denies pain. careplan reviewed.
[2018-12-09 07:55] VITALS: BP 154/85
[2018-12-09 09:33] LABS: HEMATOCRIT 36.3 % (42.0-52.0); MCHC 33.1 g/dL (28.0-37.0); MCV 90.5 fL (80.0-100.0); PLATELET COUNT 402 thou/uL (150-400); RBC 4.01 mil/uL (4.50-6.00); RDW 15.3 % (10.5-14.5); WBC 10.7 thou/uL (4.0-11.0)
[2018-12-09 09:41] LABS: INR 1.2; PROTIME 12.1 Seconds (9.3-11.4)
[2018-12-09 09:56] LABS: ALBUMIN 2.1 g/dL (3.4-5.0); CALCIUM 8.8 mg/dL (8.5-10.1); POTASSIUM 3.3 mmol/L (3.5-5.1); TOTAL BILIRUBIN 0.4 mg/dL (<0.1-1.0); TOTAL PROTEIN 7.2 g/dL (6.4-8.2)
[2018-12-09 10:59] LABS: ABSOLUTE NEUTROPHILS 5.8 thou/uL (1.4-8.2); NUCLEATED RBCS 1 /100WBC; PLATELET ESTIMATE NORMAL
[2018-12-09 11:19] VITALS: BP 168/87
--- NOTE | 2018-12-09 14:11 | NUR ---
SW reviewed chart and spoke with nursing and attending physician. Pt is scheduled to have an angiogram tomorrow at 1500. Discharge plan is for pt to return to [facility] when medically stable. BIBIANA is following to assist as needed with discharge planning.
[2018-12-09 14:31] LABS: FOLIC ACID 10.2 ng/mL (8.6-58.9)
--- NOTE | 2018-12-09 16:07 | NUR ---
ASSUMED CARE OF PATIENT AT 0700. VSS. ALERT AND ORIENTED X3. 3L OXYGEN NASAL CANNULA. PATIENT COMPLAINS OF THIRST DUE TO STRICT I AND O'S. PATIENT BECAME AGITATED AFTER BREAKFAST BUT IT WAS SEEMINGLY WELL CONTROLLED WITH MEDICATION. CONTINUING TO MONITOR.
[2018-12-09 16:52] VITALS: BP 146/68
[2018-12-09 19:53] VITALS: BP 160/75
[2018-12-10] VITALS (12 sets, daily range): BP systolic 122–154; BP diastolic 7–85
--- NOTE | 2018-12-10 14:17 | NUR ---
PATIENT TRANSFERED TO CCU SECONDARY TO HIS PROCEEDURE LATER TODAY. HE HAS BEEN ALERT AND PLEASANT. WOUND CARE PERFORMED BY STUDENT WITH INSTRUCTOR. ALL BELONGINGS TRANSFERED WITH HIM.
--- NOTE | 2018-12-10 17:52 | NUR ---
ASSUMMED PT CARE AT APPROXIMATELY 1425. PT AWAKE AND ORIENTED TO PLACE, TIME, AND PERSON. REORIENTED FREQUENTLY. ASSESSMENT CHARTED. PT ON BEDREST UNTIL 183. L GROIN C/D/I. NO HEMATOMA. PT DENIES HAVING CHEST PAIN. PT DENIES HAVING SOB. PT DENIES HAVING ACUTE PAIN. PT ON POST-OP VS. VITAL SIGNS STABLE. BLOOD SUGARS STABLE. PT COMFORTABLE IN BED. PT DENIES HAVING FURTHER CONCERNS.
[2018-12-11 04:00] VITALS: BP 144/74
--- NOTE | 2018-12-11 05:20 | NUR ---
PT ALERT AND ORIENTED X3. PT IS FORGETUFUL AT TIMES. NO COMPLAINS OF PAIN OVERNIGHT.PT PROGRESSING TOWARDS GOAL.
[2018-12-11 07:35] VITALS: BP 146/64
--- NOTE | 2018-12-11 11:03 | NUR ---
Nutrition: pt seen per followup. Admit with AMS, PVD/sepsis with bilateral lower extremity cellulitis-improved per wound care. No new weight since admit Prior extreme class 3 obesity with BMI 48. Pt very sleepy at time of visit but noted po intake is good, 75-100% of meals and 100% intake of ensure max supplements daily. Diet changed to pureed with honey thick liquids yesterday so unable to offer ensure max supplement. Will offer beneprotein powder on trays to be mixed with soft foods/liquids. Plan angiogram this afternoon. Continue low nutrition risk.
[2018-12-11 11:50] VITALS: BP 145/94
[2018-12-11 12:32] LABS: HEMATOCRIT 38.6 % (42.0-52.0); HEMOGLOBIN 12.6 gm/dL (14.0-18.0); MCH 29.3 pg (26.0-34.0); MCHC 32.5 g/dL (28.0-37.0); RBC 4.29 mil/uL (4.50-6.00); WBC 12.3 thou/uL (4.0-11.0)
[2018-12-11 12:42] LABS: CALCIUM 8.7 mg/dL (8.5-10.1); CREATININE 0.9 mg/dL (0.7-1.3); POTASSIUM 3.7 mmol/L (3.5-5.1)
[2018-12-11 15:50] VITALS: BP 139/74
--- NOTE | 2018-12-11 18:27 | NUR ---
ASSUMMED PT CARE AT APPROXIMATELY 0700. PT AWAKE AND ORIENTED TO PLACE, TIME, AND PERSON. REORIENTED FREQUENTLY. ASSESSMENT CHARTED. FALL PRECAUTIONS IN PLACE. PT DENIES HAVING SOB. PT DENIES HAVING CHEST PAIN. PT DENIES HAVING ACUTE PAIN. PT L GROIN C/D/I. NO HEMATOMA. PT HAD LARGE BM IN AFTERNOON. WOUND CARE COMPLETED. PT COMFORTABLE IN BED. PT DENIES HAVING FURTHER CONCERNS.
[2018-12-11 21:00] VITALS: BP 132/70
[2018-12-12 04:00] VITALS: BP 145/67
--- NOTE | 2018-12-12 05:42 | NUR ---
SHIFT NOTE: PATIENT RECEIVED IN BED DURING SHIFT CHANGE. ALERT AND ORIENTED TO SELF. SR ON THE MONITOR. CALL LIGHT AND PERSONAL ITEMS IN PLACE. COMPLAINT OF HEADACHE AND TYLENOL PER ORDER WITH SOMEWHAT EFFECT.DEIES OTHER CONCERN OR COMPLAINT. WILL CONTINUE TO [id number].
[2018-12-12] MEDS ORDERED: DOXYCYCLINE 10100 M1 PO (10:32)
[2018-12-12 12:03] VITALS: BP 143/83
--- NOTE | 2018-12-12 12:22 | NUR ---
PT DISCHARGING TODAY BACK TO [facility] AT [facility] FAXED DC ORDERS/SUMMARY TO FACILITY RECEIVED CONFIRMATION NOTIFIED ALFA IN ADM AND SHE ARRANGED TRANSPORT BY [facility]ER [facility]AN FOR [id number]. NOTIFIED PT'S BROTHER/DPOA (RAMESH) OF DC AND TIME OF TRANSPORT. UNIT NOTIFIED AND CHART COPY PER US. RN TO CALL REPORT TO [phone].
--- NOTE | 2018-12-12 14:30 | NUR ---
ASSESSMENT CHARTED. PT ALERT TO SELF AND SITUATION. VSS. PLEASANT AND COOPERATIVE WITH CARES. DENIES HAVING PAIN OR DISCOMFORT. ORDERS GIVEN TO DISCHARGE PT TO SNF. FAMILY NOTIFIED.
== END 2018-12-12 14:30 | DRG 871 ==
LOC: ER 09:26 → EROBS 15:01 → 3W 15:01 → 2N 15:01 → 4W 15:01 → 2N 20:57 → ENTRNSPT 12-02 11:21 → EDTRNSPTSTS 12-02 11:23 → 4W 12-02 11:40 → 3W 12-05 18:22 → 2N 12-10 13:58
PROVIDERS: Emergency Medicine; Hospitalist; Internal Medicine; Nurse Practitioner Family; ADMIT Internal Medicine
DX: A41.9 Sepsis, unspecified organism (principal); G92 Toxic encephalopathy; E43 Unspecified severe protein-calorie malnutrition; L03.116 Cellulitis of left lower limb; L03.115 Cellulitis of right lower limb; E87.1 Hypo-osmolality and hyponatremia; N17.9 Acute kidney failure, unspecified; M62.82 Rhabdomyolysis; Z68.42 Body mass index [BMI] 45.0-49.9, adult; E87.6 Hypokalemia; F03.90 Unspecified dementia, unspecified severity, without behavioral disturbance, psychotic disturbance, mood disturbance, and anxiety; E78.5 Hyperlipidemia, unspecified; M10.9 Gout, unspecified; F31.9 Bipolar disorder, unspecified; E03.9 Hypothyroidism, unspecified; E66.01 Morbid (severe) obesity due to excess calories; I48.0 Paroxysmal atrial fibrillation; E11.22 Type 2 diabetes mellitus with diabetic chronic kidney disease; N18.3 Chronic kidney disease, stage 3 (moderate); F41.1 Generalized anxiety disorder; I48.91 Unspecified atrial fibrillation; I12.9 Hypertensive chronic kidney disease with stage 1 through stage 4 chronic kidney disease, or unspecified chronic kidney disease; E87.8 Other disorders of electrolyte and fluid balance, not elsewhere classified; F20.9 Schizophrenia, unspecified; I87.2 Venous insufficiency (chronic) (peripheral); E11.51 Type 2 diabetes mellitus with diabetic peripheral angiopathy without gangrene; Y95 Nosocomial condition; Z87.891 Personal history of nicotine dependence
CPT/HCPCS: 10047; 10081; 10779; 10879

== ENCOUNTER → 2019-01-21 | Outpatient (CLI) | payer OTHER ==
[~2019-01-21] MED LIST changes: +BOUDREAUXS28 GM TOP; +DOXYCYCLINE 10100 M1 PO; +FISH OIL 1,0001 EAC9 PO; +FLUOXETINE HCL20 M1 PO; +LACTULOSE10 GM/152 PO; +LASIX 80 MG TAB80 MG PO; +LEVOTHYROXINE150 MCG PO; +LIPITOR40 MG PO; +LORAZEPAM 1 MG T1 MG PO; +METOLAZONE 2.52.5 M1 PO; +OYSTER SHELL 51 EACH PO
== END ==
LOC: HYPER 13:57
DX: L97.311 Non-pressure chronic ulcer of right ankle limited to breakdown of skin (principal); L97.821 Non-pressure chronic ulcer of other part of left lower leg limited to breakdown of skin; L97.811 Non-pressure chronic ulcer of other part of right lower leg limited to breakdown of skin; S81.802A Unspecified open wound, left lower leg, initial encounter; S90.415A Abrasion, left lesser toe(s), initial encounter; L03.115 Cellulitis of right lower limb; L03.116 Cellulitis of left lower limb; I73.9 Peripheral vascular disease, unspecified; I87.2 Venous insufficiency (chronic) (peripheral); I48.91 Unspecified atrial fibrillation; I13.0 Hypertensive heart and chronic kidney disease with heart failure and stage 1 through stage 4 chronic kidney disease, or unspecified chronic kidney disease; N18.9 Chronic kidney disease, unspecified; I50.9 Heart failure, unspecified; M19.90 Unspecified osteoarthritis, unspecified site; G40.89 Other seizures; M81.0 Age-related osteoporosis without current pathological fracture; E03.9 Hypothyroidism, unspecified; E55.9 Vitamin D deficiency, unspecified; E66.01 Morbid (severe) obesity due to excess calories; E78.5 Hyperlipidemia, unspecified; K21.9 Gastro-esophageal reflux disease without esophagitis; A41.9 Sepsis, unspecified organism; B35.1 Tinea unguium; R60.9 Edema, unspecified; J44.9 Chronic obstructive pulmonary disease, unspecified; F25.9 Schizoaffective disorder, unspecified; F70 Mild intellectual disabilities; F41.1 Generalized anxiety disorder; F31.9 Bipolar disorder, unspecified; F52.8 Other sexual dysfunction not due to a substance or known physiological condition; Z68.43 Body mass index [BMI] 50.0-59.9, adult; Z87.891 Personal history of nicotine dependence; X58.XXXA Exposure to other specified factors, initial encounter; Y93.89 Activity, other specified; Y92.89 Other specified places as the place of occurrence of the external cause; Y99.8 Other external cause status

== ENCOUNTER → 2019-02-07 | Outpatient (CLI) | payer OTHER | LOC: HYPER 08:33 | DX: E11.621 Type 2 diabetes mellitus with foot ulcer (principal); L97.521 Non-pressure chronic ulcer of other part of left foot limited to breakdown of skin; E11.622 Type 2 diabetes mellitus with other skin ulcer; L97.811 Non-pressure chronic ulcer of other part of right lower leg limited to breakdown of skin; I87.2 Venous insufficiency (chronic) (peripheral); E11.51 Type 2 diabetes mellitus with diabetic peripheral angiopathy without gangrene; J44.9 Chronic obstructive pulmonary disease, unspecified; E11.22 Type 2 diabetes mellitus with diabetic chronic kidney disease; I13.0 Hypertensive heart and chronic kidney disease with heart failure and stage 1 through stage 4 chronic kidney disease, or unspecified chronic kidney disease; I50.9 Heart failure, unspecified; N18.9 Chronic kidney disease, unspecified; I48.91 Unspecified atrial fibrillation; E03.9 Hypothyroidism, unspecified; K21.9 Gastro-esophageal reflux disease without esophagitis; F52.8 Other sexual dysfunction not due to a substance or known physiological condition; M19.90 Unspecified osteoarthritis, unspecified site; G40.89 Other seizures; M81.0 Age-related osteoporosis without current pathological fracture; E55.9 Vitamin D deficiency, unspecified; E78.5 Hyperlipidemia, unspecified; E66.01 Morbid (severe) obesity due to excess calories; F25.8 Other schizoaffective disorders; F70 Mild intellectual disabilities; F41.1 Generalized anxiety disorder; F31.9 Bipolar disorder, unspecified; F43.25 Adjustment disorder with mixed disturbance of emotions and conduct; Z68.44 Body mass index [BMI] 60.0-69.9, adult; Z79.84 Long term (current) use of oral hypoglycemic drugs ==

== ENCOUNTER → 2019-02-21 | Outpatient (CLI) | payer OTHER | LOC: HYPER 10:00 | DX: E11.622 Type 2 diabetes mellitus with other skin ulcer (principal); L97.821 Non-pressure chronic ulcer of other part of left lower leg limited to breakdown of skin; L97.521 Non-pressure chronic ulcer of other part of left foot limited to breakdown of skin; I87.2 Venous insufficiency (chronic) (peripheral); E11.51 Type 2 diabetes mellitus with diabetic peripheral angiopathy without gangrene; J44.9 Chronic obstructive pulmonary disease, unspecified; E11.22 Type 2 diabetes mellitus with diabetic chronic kidney disease; I13.0 Hypertensive heart and chronic kidney disease with heart failure and stage 1 through stage 4 chronic kidney disease, or unspecified chronic kidney disease; I50.9 Heart failure, unspecified; N18.9 Chronic kidney disease, unspecified; I48.91 Unspecified atrial fibrillation; E03.9 Hypothyroidism, unspecified; K21.9 Gastro-esophageal reflux disease without esophagitis; F31.9 Bipolar disorder, unspecified; M19.90 Unspecified osteoarthritis, unspecified site; G40.89 Other seizures; M81.0 Age-related osteoporosis without current pathological fracture; E55.9 Vitamin D deficiency, unspecified; E66.01 Morbid (severe) obesity due to excess calories; E78.5 Hyperlipidemia, unspecified; F25.9 Schizoaffective disorder, unspecified; F52.8 Other sexual dysfunction not due to a substance or known physiological condition; F41.1 Generalized anxiety disorder; F43.25 Adjustment disorder with mixed disturbance of emotions and conduct; F70 Mild intellectual disabilities; Z68.44 Body mass index [BMI] 60.0-69.9, adult; Z87.891 Personal history of nicotine dependence; Z79.84 Long term (current) use of oral hypoglycemic drugs ==

== ENCOUNTER → 2019-03-06 | Outpatient (CLI) | payer OTHER | LOC: HYPER 10:06 | DX: L97.821 Non-pressure chronic ulcer of other part of left lower leg limited to breakdown of skin (principal); L97.811 Non-pressure chronic ulcer of other part of right lower leg limited to breakdown of skin; L97.521 Non-pressure chronic ulcer of other part of left foot limited to breakdown of skin; I87.2 Venous insufficiency (chronic) (peripheral); I73.9 Peripheral vascular disease, unspecified; J44.9 Chronic obstructive pulmonary disease, unspecified; M19.90 Unspecified osteoarthritis, unspecified site; I48.91 Unspecified atrial fibrillation; I13.2 Hypertensive heart and chronic kidney disease with heart failure and with stage 5 chronic kidney disease, or end stage renal disease; I50.9 Heart failure, unspecified; N18.9 Chronic kidney disease, unspecified; G40.89 Other seizures; M81.0 Age-related osteoporosis without current pathological fracture; E03.9 Hypothyroidism, unspecified; E55.9 Vitamin D deficiency, unspecified; E78.5 Hyperlipidemia, unspecified; K21.9 Gastro-esophageal reflux disease without esophagitis; E66.01 Morbid (severe) obesity due to excess calories; F25.9 Schizoaffective disorder, unspecified; F52.8 Other sexual dysfunction not due to a substance or known physiological condition; F41.1 Generalized anxiety disorder; F31.9 Bipolar disorder, unspecified; F43.25 Adjustment disorder with mixed disturbance of emotions and conduct; F70 Mild intellectual disabilities; Z68.44 Body mass index [BMI] 60.0-69.9, adult; Z87.891 Personal history of nicotine dependence ==

== ENCOUNTER 2019-03-17 15:27 | Inpatient (IN) | payer OTHER ==
[~2019-03-17] VITALS: Ht 170.2 cm; Wt 149.3 kg
[2019-03-17 15:37] VITALS: BP 148/64
[2019-03-17 16:29] LABS: URINE BILIRUBIN NEGATIVE (Negative); URINE BLOOD NEGATIVE (Negative); URINE CLARITY SL CLOUDY; URINE COLOR YELLOW; URINE GLUCOSE-RANDOM* TRACE (Negative); URINE KETONES NEGATIVE (Negative); URINE LEUKOCYTES-REFLEX NEGATIVE (Negative); URINE NITRITE-REFLEX NEGATIVE (Negative); URINE PROTEIN (DIPSTICK) NEGATIVE (Negative)
[2019-03-17 16:31] LABS: HEMATOCRIT 42.4 % (42.0-52.0); HEMOGLOBIN 13.9 gm/dL (14.0-18.0); MCH 28.8 pg (26.0-34.0); MCHC 32.7 g/dL (28.0-37.0); MCV 87.9 fL (80.0-100.0); PLATELET COUNT 297 thou/uL (150-400); RBC 4.82 mil/uL (4.50-6.00); RDW 14.6 % (10.5-14.5); WBC 8.4 thou/uL (4.0-11.0)
[2019-03-17 16:42] LABS: ALBUMIN 3.4 g/dL (3.4-5.0); CALCIUM 9.4 mg/dL (8.5-10.1); CREATININE 1.1 mg/dL (0.7-1.3); TOTAL BILIRUBIN 0.3 mg/dL (<0.1-1.0); TOTAL PROTEIN 8.1 g/dL (6.4-8.2)
[2019-03-17 16:43] LABS: POTASSIUM 2.4 mmol/L (3.5-5.1)
[2019-03-17 16:52] LABS: ABSOLUTE NEUTROPHILS 3.7 thou/uL (1.4-8.2); PLATELET ESTIMATE NORMAL
[2019-03-17 17:29] VITALS: BP 169/96
[2019-03-17] MEDS ORDERED: SEROQUEL 100 M100 M1 PO (17:34)
--- NOTE | 2019-03-17 18:20 | NUR ---
PT ARRIVED TO UNIT VIA STRECHTER TO BED X3 PERSON ASSIST. PT WAS INCON. OF URINE. PT HAS REDDNESS AND BLISTERS TO LOWER EXT. PIC. TAKEN OF LOWER LEGS BILATERAL. PT STATED HE NEVER HAD CELLULITIS AND THIS IS HIS FIRST TIME. PT STATED HE HAS WORN SLIPPER SOCKS BEFORE ON ASKING IF HE CAN BEAR WEIGHT. PT STATED HE WOULD LIKE TO SEE THE TV. EDUCATED PT THAT THERE WAS NO TV IN ROOMS, OR CALL LIGHTS, GAVE PT A THOMPSON TO CALL AND WATER.
[2019-03-17 20:33] VITALS: BP 181/82
--- NOTE | 2019-03-17 22:58 | NUR ---
Patient arrived to [facility] ED for eval and tx due to verbal aggression, striking at another resident and sexually inappropriate behaviors. Patient currently resides at [facility]. Patient alert and oriented to person and place. Patient unable to state current date. States that he does not need to "keep up on the date" so he has no idea. Patient unable to state current situation. Patient currently denies SI/HI. Patient does report having visual hallucinations which he has had for approximately 5 years. Does not recall the last time he has had them. Reports that he sees ghosts in which some are good and some are bad. Reports discomfort to left lower extremity but denies needing PRN Tylenol at this time. Admission orders received from Dr. Jacobs. Potassium level low in ED. Orders received to monitor BMP and provide supplemental PO Potassium. Patient has multiple medical co-morbities. Appears that patient was on Med A skilled services while at [facility] for the diagnosis of sepsis as recently as 03/13/19. No antibiotic treatment currently prescribed per facility eMAR. No s/s of sepsis observed per labs collected and vital signs assessed. Wound consult placed with Dr. Sanders whom patient follows on an outpatient basis for the diagnosis of cellulitis to bilateral lower extremities. Pictures placed in chart. Lower extremities reddened, swollen, no drainage observed, areas of blisters present, areas of granulation present. Patient has had 2 falls at facility as recent as 02/25/19 and 03/08/19. Fall precautions in place. Patient provided call avendano which patient has been using appropriately. Patient has been demanding since arriving to unit. Labile, angry, irritable. Patient received dinner while in ED before arrival to our unit. Patient provided HS snack x2. Patient stating that he would like to speak to the car wash supervisor because the care he is provided is not sufficient. Patient incontinent of bladder and demanded to be taken care of. Nurse gathered supplies. Patient pulled back his gown and stated "hurry up and take care of my sexual needs". Patient re-directed on inappropriate behaviors. While completing joan-care, patient asked nurse if she was . Required re-direction. Patient stated at one point "I need sex, are you the one that is going to fix that?". Patient required re-direction yet again. Patient demanding water, trash can, position of head and pillow. Patient educated on the importance of asking rather than demanding and saying please and thank you to those that are helping him. Patient provided a urinal to use for toileting needs. Patient stated he would rather pee on himself so nurses can come in to clean him up. Speech is disorganized, scattered. Patient angry then laughing inappropriately at times. Once encouraged, patient was able to turn side to side in bed with mod assist x1 for incontinent cares to be provided. Patient primarily uses a w/c for locomotion about his room and the unit. Patient took HS medication whole without difficulty. Patient currently receives an 1800 calorie count diet. Patient is rather overweight and could use strict diet regimen to encourage weight loss. Patient does have the past diagnosis of intellectual disability, schizoaffective disorder, bipolar disorder, adjustment disorder and anxiety. Changes to medication regimen have already been implemented per Dr. Jacobs. This nurse received DPOA paperwork from current facility. Spoke with his brother who is DPOA and received verbal consent for treatment. Notified brother of visiting hours and code number while on unit.
[2019-03-18 06:46] LABS: CALCIUM 8.7 mg/dL (8.5-10.1); CREATININE 0.9 mg/dL (0.7-1.3)
[2019-03-18 06:47] LABS: POTASSIUM 2.6 mmol/L (3.5-5.1)
--- NOTE | 2019-03-18 13:57 | NUR ---
0715 Lying supin in bed without s/o distress. Yelling out for nurse. Orientated to name and place only. Denies SI/HI. No stated pain but cries out when being wiped. Denies SI/HI. Breath sounds clear t/o, diminished in lower lobes. Lasix not given d/t K+ of 2.6, notified Dr. Harrington and Dr. Moreno, will hold until K+ level done at 1700. Reg HR auscultated. Color pink with brisk capillary refill and palpable peripheral pulses, edema in lower legs. Incontinent of yellow urine, skin in joan area and buttocks reddened, protective ointment applied. Hypoactive bowel sounds auscultated over large, rounded soft abdomen. Multiple lesions with reddened skin and dried plaques over lower extremities bilaterally, no drainage noted. Able to stand and assist with transfer--requires assistance of 2 staff members. 1400 Up in WC all day, participating in groups and communicating with peers. No s/o distress. Assisted with toileting by horizontal boring mill set up operator.
--- NOTE | 2019-03-18 16:26 | NUR ---
Renee spoke with pt's brother and he stated that he would like his brother to go back to [facility] when he is ready to d/c. RENEE completed the intake assessment and TP. Set up a family meeting 03/21 at 11:45 am. [facility] him back and will come out to complete an assessment prior.
[2019-03-18 19:40] VITALS: BP 191/93
--- NOTE | 2019-03-18 23:35 | NUR ---
Care assumed of patient at 1915: Patient seated in w/c at dining table at start of shift. Patient taken to room for wound care to be completed to bilateral lower extremities. Patient then assisted to bed. Patient alert and oriented to person and place. Disoriented on current situation and time. Patient denies SI/HI. Patient easily irritable and agitated. Patient reports that there is an male that keeps coming into his room and standing over his bed. Patient then requested for the back door to be locked because this is how the male keeps coming to his room. Education provided on being on a secured unit and each staff has to have access to come on to the unit. Patient appeared to feel better after this education was provided. No sexually inappropriate comments made. Patient demanding at times when needing a drink or position changed in bed. Education provided on needing to ask for assistance rather than demanding. Education also provided on the need of saying please and thank you. Patient took HS medication whole without difficulty. Ate 100% HS snack. Remains incontinent of bladder despite having urinal at bedside. Patient states that he can recognize when he needs to use the bathroom but would rather urinate on self. No verbal or physical aggression observed. Patient has been resting quietly in bed with fall precautions in place.
[2019-03-19 06:27] LABS: CALCIUM 8.6 mg/dL (8.5-10.1)
[2019-03-19 08:04] VITALS: BP 135/45
--- NOTE | 2019-03-19 08:17 | NUR ---
Sw completed a chart review and might need to complete a level II with [facility] unless a DX of dementia can be established.
[2019-03-19 09:00] VITALS: BP 135/45
--- NOTE | 2019-03-19 10:17 | NUR ---
PT ALERT AND ORIENTED TIMES FOUR. PT STATES HE NEEDS ALOT OF ATTENTION TODAY. PT DENIES SI/HI THOUGHTS. ALSO DENIES AH/VH. PT TOOK HIS MEDICATIONS WITHOUT ISSUES. PT HAS BEEN UP IN THE DINNING ROOM SITTING IN HIS WHEELCHAIR. PT TOLEATES MEDS AN MEALS, WILL CONTINUE TO MONITOR.
[2019-03-19 19:52] VITALS: BP 184/81
--- NOTE | 2019-03-20 04:34 | NUR ---
Assumed care of pt @ 1900. Pt calm et cooperative this shift. Took medications whole without difficulty. Ambulates via w/c et stands with assist. VSWNL. Blood sugar of 188 requiring 3 units of insulin. Denies SI/HI this shift. Health assessment with no abnormalities other than previously charted. Currently resting in bed with eyes closed. Will continue to monitor per protocol.
[2019-03-20 09:17] VITALS: BP 148/75
--- NOTE | 2019-03-20 11:45 | NUR ---
Nutrition: Assessed due to BMI >40 (52.5 kg/m2). Admit: bipolar, verbally aggressive, schizoaffective. Hx includes dementia, DM II, CKD stage 3, PVD, paroxysmal a fib, hypothyroidism. Upon RD introduction, pt replies, "I don't like dietitians." When asked why, pt stated "because... I like to stay big." Pt has gained +18# in the last 3.5-4 months. From 317.8# per 12/01/18 to 335.4# on 03/18/19. He is on an 1800 kcal carb controlled diet, which restricts meals to 5 CHO choices/meal. Instructed on healthier leaner protein, fiber from fruits, vegetables, beans, whole grains and choosing more vegetables. Pt likes large portions, lots of meat. Lives at [place], thus unlikely to change eating habits. Discussed adding protein at meals/snacks to minimize sharp BG spikes. Fasting BG 129 mg/dl today. Eating 100% of all meals. Low nutrition risk as pt declined further nutrition education interventions.
--- NOTE | 2019-03-20 13:28 | NUR ---
Sitting in day room in without s/o distress. Interactive with peers and staff. Alert and orientated to person only, knows he is in the hospital but states he is at [facility]. Denies SI/HI, does not mention pain. Demands items from staff and is impatient when need is not addressed immediately. An example is wanting an extra cup on his tray in addition to cup of ice water that was just given to him. Also asks personal questions of staff/about staff. Breath sounds clear t/o, bilaterally equal, diminished in lower lobes. Lasix held for several hours this morning d/t K+ of 3.0 and no K+ ordered per Dr. Moreno. Reg HR auscultated. Color pink with brisk capillary refill and palpable peripheral pulses, +2 non pitting edema. Incontinent of large amount yellow urine. Active bowel sounds over large, soft abdomen. Incontinent of large, brown, soft stool in shower. Shower done with assistance of 3 staff members. Blisters present over lower legs with few scattered on skin on lower abdomen and upper legs, buttocks. Lower legs reddened with dried areas and granulating tissues, cleaned with soap and water in shower, prescribed lotion applied and redressed with vaseline gauze, kerlix and lizeth wrap. 1330 Currently participating in group without s/o distress. Lasix given per order. Compliant with meds.
--- NOTE | 2019-03-20 14:28 | NUR ---
BIBIANA [facility] to [facility] and completed the DA [address] Harrington, this was submitted to [facility] for a level II screening.
[2019-03-20 19:32] VITALS: BP 155/69
--- NOTE | 2019-03-21 00:03 | NUR ---
PATIENT WAS SITTING UP IN DAYROOM TONIGHT. HE HAS BEEN A/OX 1. HE HAS NOT BEEN DEMANDING OR ATTENTION SEEKING EARLIER IN DAY PER REPORTS. PATIENT WAS COOPERATIVE WITH PHYSICAL ASSESSMENT. HE DENIES PAIN. HEART REGULAR AND BILATER LUNGS CTA. HE HAS HAD LARGE BM'S TODAY X 2. HE DID ASK FOR A FULL BOX OF EyelationENEX. HE LIKES TO HAVE A BOX TO CARRY. HE DOES NOT HAVE A COUGH OR NASAL DRAINAGE THAT IS NOTED. PATIENT ASSISTED WITH INCONTINENCE CARES. HIS BILATERAL LE'S DRESSING CHANGED RIGHT BEFORE SHIFT CHANGE AND ARE WRAPPED NEATLY WITHOUT SEEPAGE OR DRAINAGE. PATIENT GIVEN FIRST DOSE OF NEW ORDER OF LITHIUM CARBONATE 300MG AT HS. PATIENT TAKES HIS MEDS WHOLE. HE IS AN ASSIST X 3 IN TRANSFERRING FROM BED TO WC. PATIENT HAD HS SNACK. HE SPOKE APPROPRIATELY WITH STAFF AND SOCIALIZED WITH OTHER PATIENTS IN DINING ROOM BEFORE GOING TO BED. PATIENT IS SLEEPING. BED IN LOW POSITION AND BED ALARM IS ON. WC BY BED. PATIENT DID HAVE SHOWER TODAY.
--- NOTE | 2019-03-21 02:07 | NUR ---
AT 0100 PATIENT WAS YELLING OUT FOR HELP FROM HIS ROOM. WHEN THIS NURSE GOT THERE, PATIENT WAS SITTING UP ON SIDE OF BED AND STATES HE CAN'T SLEEP AND WANTS TO SIT IN THE DINING ROOM. EXPLAINED THAT IT WAS ONE IN THE MORNING. I ALSO NOTED THAT PATIENT HAD JUST URINATED ALL OVER HIMSELF. ASKED IF HE NEEDED TO USE THE COMMODE. HE STATES NO. CLEANED PATIENT UP. HAD HIM STAND TO CLEAN HIM. HE IS ABLE TO STAND WITH WALKER AND ASSIST X 1-2 TO GET UP. HANDED HIM THE WASHCLOTH TO CLEAN THE FRONT PERINEAL AREA AND HE SAID HE COULDN'T. REASSURED HIM HE COULD. HE CLEANED AREA AND THEN THIS NURSE ASSESSED AND CLEANED AREA HE MISSED. PATIENT THEN SAID HE JUST WANTED TO GO BACK TO BED AND SLEEP INSTEAD OF GETTING UP TO DINING ROOM IN CHAIR. ASSISTED PATIENT BACK IN BED. THOMPSON BESIDE HIM IN BED. BED ALARM ON. BED IN LOW POSITION AND HOB UP 30 DEGREES FOR COMFORT. CONTINUE TO MONITOR.
--- NOTE | 2019-03-21 04:39 | NUR ---
PATIENT ASSISTED UP TO WALKER TO AFTER INCONTINENCE CARES DONE. NEW BRIEF, YELLOW SHIRT, GOWN, YELLOW NONSKID SOCKS PLACED ON PATIENT. HAD PATIENT ASSIST WITH CARES AND ADL'S. PATIENT'S BED STRIPPED AND WIPED DOWN WITH PURPLE DIMENSION MILL WORKER AND NEW LINENS. MADE UP BED. PATIENT WANTED TO STAY UP FOR DAY. PATIENT SITTING IN DINING ROOM IN WITH CHAIR ALARM ON AND WORKING. PT IS DRINKING WATER AND SITTING QUIETLY AT A TABLE. LITHIUM STARTED TONIGHT. PATIENT HAS BEEN UP THRU NIGHT MORE THAN USUAL. NOT SURE IF IT IS RELATED TO MEDICATION OR JUST A LESS SLEEPLESS NIGHT FOR PATIENT. CONTINUING TO MONITOR AND EVALUATE FOR SAFETY.
[2019-03-21 09:47] VITALS: BP 136/70
--- NOTE | 2019-03-21 11:36 | NUR ---
PATIENT HAS BEEN OUT ON UNIT. CAN BE DEMANDING AT TIMES AND NEEDS REDIRECTION TO PARTICIPATE IN OWN CARES AT TIMES. PATIENT STATES NO S/I OR H/I - ALERT AND ORIENTED X 3-4. NEEDS ALOT OF ENCOURAGEMENT STANDING AND MANUVERING AROUND INDEPENDENTLY. YELLED OUT SEVERAL TIMES FOR ASSISTANCE IMMEDIATELY AND CAN BE DISRUPTIVE. RESPONDS TO REDIRECTION WHEN TOLD. DRESSING ON LOWER EXTREMITIES CHANGED AND OINTMENT APPLIED WITH VASELINE -MEDICATION COMPLIANT.BLOOD SUGAR 125 THIS MORNING - NO INSULIN REQUIRED AT THIS TIME.
--- NOTE | 2019-03-21 14:18 | NUR ---
Renee met with pt's brother Franky for a family meeting. Sw reported on current medications, and d/c plan that is expected next week. Franky stated that he had a good visit with his brother and that he " seems really calm". Sw provided education and reassurance.
[2019-03-21 19:30] VITALS: BP 163/59
--- NOTE | 2019-03-22 01:34 | NUR ---
ASSUMED CARE OF PATIENT ON 03/21/19 AT 1915, PATIENT HAS BEEN IN HIS ROOM THROUGHOUT THE SHIFT HAVING NO INTERACTIONS WITH OTHER PTS AND STAFF. THIS NURSE CONDUCTED ONE TO ONE WITH PATIENT, APPEARS WITH A LABILE AFFECT AND MOOD. HE IS DEMANDING AT TIMES OF STAFF, WHEN WITH ENCOURAGEMENT PATIENT IS ABLE TO COMPLETE SOME ADLS. HE DENIES SI HI DEPRESSION AND ANXIETY. HE STATES 'I DONT KNOW WHY IM EVEN HERE.' HE DENIED MEDICAL CONCERNS WITH NO S/S OF DISTRESS NURSING WILL MAINTAIN ALL PRECAUTIONS TO ENSURE SAFETY AT ALL TIMES.
[2019-03-22 07:28] LABS: ALBUMIN 3.2 g/dL (3.4-5.0); CALCIUM 8.6 mg/dL (8.5-10.1); TOTAL BILIRUBIN 0.5 mg/dL (<0.1-1.0); TOTAL PROTEIN 7.7 g/dL (6.4-8.2)
[2019-03-22 07:34] LABS: POTASSIUM 2.4 mmol/L (3.5-5.1)
[2019-03-22 09:12] VITALS: BP 142/70
--- NOTE | 2019-03-22 13:08 | NUR ---
SW completed chat review and many of the pt's behaviors are being redirected. Pt is likely ready to d/c next week. This was reported to family
--- NOTE | 2019-03-22 14:05 | NUR ---
0745 Lying supine in bed, calling out for help. States his butt needs to be wiped. States he has been hollering for hours and noone came to help. I told him that I had just received report and RN stated that they had cleaned him up 3 times in last hr. He replied, "It was only 2 times!" Alert and orientated to person and place but not to time. Denies SI/HI. No mention of pain. Breath sounds clear t/o, bilaterally equal. Reg HR auscultated. Color pink with brisk capillary refill and palpable peripheral pulses. Incontinent of large amount yellow urine. Hypoactive bowel sounds over large, soft, rounded abdomen. Large, soft, formed yellow stool per pad. Able to stand with assistance and then pivot independently with standby to WC. 0800 Lab called with critical K+ level of 2.4. Dr. Moreno and then Dr. Rachelle grimaldo. Dr. Bush states to hold AM lasix and he will place orders to replace K+. 1200 Dr. Rachelle grimaldo again r/t K+ replacement, here examining pt. Will replace orally and recheck K+ this afternoon. 1400 Incontinent of large, yellow brown semiformed stool per brief. Cleaned and changed. Bilateral lower leg wounds cleaned and dressed as documented. While cleaning wounds he stated that I was cleaning with a soft touch and then proceeded to say that all his women cleaned him with a soft touch. When I asked what women he was referring to (nurses, caregiver ect) he stated, "When I used to go to the [employer] book[employer]..." I told him he was being inappropriate and he immediately changed the subject. Currently sitting in day room with peers without s/o distress.
[2019-03-22 16:38] LABS: CALCIUM 9.7 mg/dL (8.5-10.1); CREATININE 1.3 mg/dL (0.7-1.3); MAGNESIUM 1.8 mg/dL (1.8-2.4); PHOSPHORUS 3.2 mg/dL (2.5-4.9)
[2019-03-22 16:45] LABS: POTASSIUM 2.6 mmol/L (3.5-5.1)
--- NOTE | 2019-03-24 09:08 | HC ---
[facility] [place] [address] CONSULTATION Name: MAUREEN MARTINEZ Room #: 517-A [facility] M.R.#: [id number] Admission: 03/17/19 Attend Phys: Helga Harrington MD Discharge: 03/22/19 Date of : 54 Report #: [id number] THIS REPORT FOR: cc: Mauricio Guerra MD, Shyam MD Althoff,Mars Ardon MD ~ THIS REPORT FOR: //name// CC: Dariel Guerra DATE OF SERVICE: 03/18/2019 HISTORY OF PRESENT ILLNESS: The patient is a 68-year-old male patient with whom we have become familiar through the wound clinic. The patient was admitted to the Geriatric Psych Unit due to disruptive and sexually inappropriate behavior. He is noted to have lower extremity edema, history of cellulitis and we have been asked to see him with regard to management of his lower extremities. PAST MEDICAL HISTORY: Positive for history of mental retardation, hypertension, dementia, hyperlipidemia, gout, chronic kidney disease, bipolar disorder, chronic venous dermatitis of lower extremities, schizoaffective disorder and obesity. ALLERGIES: No known drug allergies. MEDICATIONS: Include doxycycline, K-Dur, fish oil, TriCor, Depakote, Glucophage, Mag-Ox, amlodipine, acetaminophen, Zetia, Lasix, Synthroid, Lipitor, fluoxetine, lactulose and quetiapine. SOCIAL HISTORY: Negative for current alcohol or tobacco use. He is a previous cigarette smoker. FAMILY HISTORY: Noncontributory. REVIEW OF SYSTEMS: CONSTITUTIONAL: The patient denies fever, chills or weight loss. NEUROLOGICAL: The patient denies focal weakness, numbness or tingling. EYES: The patient denies visual changes, redness, or drainage. ENT: The patient denies earache, nasal drainage, sore throat. CARDIOVASCULAR: The patient denies chest pain or palpitations or diaphoresis. PULMONARY: The patient denies cough or shortness of breath. GASTROINTESTINAL: The patient denies nausea, vomiting, diarrhea or abdominal pain. [facility] [address] [place] [address] CONSULTATION Name: MAUREEN MARTINEZ [place] Room #: 517-A DIS IN [facility]#: [id number] Admission: 03/17/19 Attend Phys: Helga Harrington MD Discharge: 03/22/19 Date of : 54 Report #: [id number] GENITOURINARY: The patient denies frequency. Denies dysuria. He has incontinence; however, from time to time. DERMATOLOGICAL: The patient does have a rash on his lower extremities. Denies itching. ORTHOPEDIC: The patient denies pain, swelling or limitation of his extremities. NEUROLOGIC: The patient currently denies anxiety or depression, although he is admitted for disruptive and sexually inappropriate behavior. Other systems in a 14-point review of systems are negative. PHYSICAL EXAMINATION: VITAL SIGNS: Include temperature 98.9, pulse 78, respiratory rate 17, blood pressure 191/93. GENERAL: This is a somewhat chronically ill-appearing male patient who appears to be in minimal distress. HEENT: Head normocephalic. Nose and throat are clear. NECK: Supple. LUNGS: Clear. HEART: Regular rhythm without murmur. ABDOMEN: Soft. Bowel sounds are present. He is incontinent of urine. EXTREMITIES: Lower extremities demonstrate 2-3+ edema bilaterally with chronic venous stasis dermatitis and mild areas of erythema. NEUROLOGIC: The patient is alert and does move all 4 extremities spontaneously. NEUROLOGIC: She is alert and oriented and appropriate. LABORATORY DATA: Includes white blood cell count 8.4 with hemoglobin of 13.9, hematocrit 42.4. Sodium 142, potassium 3.0, chloride 103, CO2 of 29, BUN 12, creatinine 1.0, glucose 136, albumin is 3.4. CLINICAL IMPRESSION: 1. Venous stasis dermatitis, bilateral lower extremities. 2. Superficial venous ulcerations, bilateral lower extremities. 3. Paroxysmal atrial fibrillation. 4. Chronic kidney disease stage 3. 5. Dementia. 6. Diabetes type 2. 7. Morbid obesity. RECOMMENDATIONS: We will recommend AmLactin lotion to both lower extremities, Xeroform, Kerlix and Elijah wraps bilaterally. He will need aggressive nutritional support to maximize wound healing and maintain glycemic control. Recommend continuation of current medications and PT and OT as tolerated. I appreciate being asked to see him in consultation. <ELECTRONICALLY SIGNED> By: Mars Sanders MD 03/24/19 0908 [id number] Mars Sanders MD /nt
--- NOTE | 2019-03-26 12:31 | EKG ---
[facility] [place] [address] ELECTROCARDIOGRAM REPORT Name: MAUREEN MARTINEZ Room #: 517-A [facility] IN M.R.#: [id number] Admission: 03/17/19 Attend Phys: Helga Harrington MD Discharge: 03/22/19 Date of : 54 Report #: [id number] THIS REPORT FOR: cc: Mauricio Guerra MD, Shyam MD Lundgren,Amrik Roegl MD [facility] ~ THIS REPORT FOR: //name// [facility] ED Test Date: 2019-03-17 Test Time: 16:13:10 Pat Name: MAUREEN MARTINEZ Department: Room: 170 Gender: M Dietitian Therapeutic: donnie : 1950 Requested By: Delmi Harmon Order Number: [id number] MD: Amrik Donaldson Measurements Intervals Seanor Rate: 80 P: 89 KS: 239 QRS: 26 QRSD: 127 T: 38 QT: 438 QTc: 506 Interpretive Statements Sinus rhythm Prolonged KS interval IVCD, consider atypical RBBB Anteroseptal infarct, age indeterminate Baseline wander in lead(s) V1 Compared to ECG 12/05/2018 17:23:52 Sinus tachycardia no longer present Electronically Signed On 03-17-2019 17:45:49 COURTROOM DEPUTY OR CALENDAR CLERK by Amrik Donaldson [email or web address] <ELECTRONICALLY SIGNED> By: Amrik Donaldson MD, [facility] 03/17/19 1745 1613 1613 Amrik Donaldson MD, [facility] /EPI
== END 2019-03-22 18:03 | disposition short-term general hospital (02) | DRG 885 ==
LOC: ER 15:27 → SBH 17:13 → EROBS 17:13 → SBH 18:09
PROVIDERS: Internal Medicine; Nurse Practitioner Family; Psychiatry & Neurology Psychiatry; ADMIT Psychiatry & Neurology Psychiatry
DX: F25.9 Schizoaffective disorder, unspecified (principal); L03.116 Cellulitis of left lower limb; L03.115 Cellulitis of right lower limb; E87.1 Hypo-osmolality and hyponatremia; Z68.43 Body mass index [BMI] 50.0-59.9, adult; N18.3 Chronic kidney disease, stage 3 (moderate); F03.90 Unspecified dementia, unspecified severity, without behavioral disturbance, psychotic disturbance, mood disturbance, and anxiety; E78.5 Hyperlipidemia, unspecified; M10.9 Gout, unspecified; F31.9 Bipolar disorder, unspecified; E03.9 Hypothyroidism, unspecified; E66.01 Morbid (severe) obesity due to excess calories; I12.9 Hypertensive chronic kidney disease with stage 1 through stage 4 chronic kidney disease, or unspecified chronic kidney disease; E87.6 Hypokalemia; I87.8 Other specified disorders of veins; I87.2 Venous insufficiency (chronic) (peripheral); I48.0 Paroxysmal atrial fibrillation; E11.22 Type 2 diabetes mellitus with diabetic chronic kidney disease; E87.8 Other disorders of electrolyte and fluid balance, not elsewhere classified; E11.51 Type 2 diabetes mellitus with diabetic peripheral angiopathy without gangrene; Z87.891 Personal history of nicotine dependence; Z79.899 Other long term (current) drug therapy
CPT/HCPCS: 10880

== ENCOUNTER 2019-03-22 18:22 | Inpatient (IN) | payer OTHER ==
[~2019-03-22 18:22] MED LIST changes: +SEROQUEL 100 M100 M1 PO
[2019-03-22 18:34] VITALS: BP 184/99
[2019-03-22 19:36] LABS: HEMATOCRIT 44.4 % (42.0-52.0); HEMOGLOBIN 14.4 gm/dL (14.0-18.0); MCH 28.7 pg (26.0-34.0); MCHC 32.5 g/dL (28.0-37.0); MCV 88.4 fL (80.0-100.0); RBC 5.03 mil/uL (4.50-6.00); RDW 14.1 % (10.5-14.5); WBC 7.2 thou/uL (4.0-11.0)
[2019-03-22 19:54] LABS: ALBUMIN 3.4 g/dL (3.4-5.0); CALCIUM 9.4 mg/dL (8.5-10.1); CREATININE 1.2 mg/dL (0.7-1.3)
[2019-03-22 20:20] LABS: TSH 2.405 uIU/mL (0.358-3.740)
[2019-03-23] VITALS (8 sets, daily range): BP systolic 147–201; BP diastolic 75–101
[2019-03-23 00:31] LABS: HEMOGLOBIN 13.6 gm/dL (14.0-18.0); MCH 28.2 pg (26.0-34.0); MCHC 32.4 g/dL (28.0-37.0); MCV 87.1 fL (80.0-100.0); RBC 4.82 mil/uL (4.50-6.00); WBC 7.2 thou/uL (4.0-11.0)
[2019-03-23 06:05] LABS: CALCIUM 9.2 mg/dL (8.5-10.1); CREATININE 0.9 mg/dL (0.7-1.3); MAGNESIUM 1.8 mg/dL (1.8-2.4); POTASSIUM 3.2 mmol/L (3.5-5.1)
--- NOTE | 2019-03-23 06:10 | NUR ---
PT A&O X4 ABLE TO MAKE NEEDS KNOWN. PT TRANSFERED FROM [facility] AT THE END THE PREVIOUS SHIFT. ADMISSION ASSESSMENT COMPLETED BY THIS NURSE. PT DENIES PAIN. BLE CELLULITIS DRESSINGS IN PLACE CECILIA WRAPPED. INCONT OF B&B. PT HAS BEEN APPROPRIATE THIS SHIFT PER NOTES PT CAN BE VERBALLY AGGRESSIVE. K REPLACED AND RECHECKED DURING THIS SHIFT. ASSIST X2 WITH TRANSFERS. PT HOLAS TO ASK FOR HELP, REMINDED TO USE CALL BUTTON
--- NOTE | 2019-03-23 06:44 | NUR ---
PT K 3.2 THIS MORNING OUTPATIENT PHLEBOTOMIST NOTIFIED. ORDER OBTAINE TO GIVE 40MEQ X1 NOW AND RECHECK BMP IN THE AM
[2019-03-23 15:36] LABS: CALCIUM 9.2 mg/dL (8.5-10.1); CREATININE 1.1 mg/dL (0.7-1.3); MAGNESIUM 2.1 mg/dL (1.8-2.4); POTASSIUM 3.6 mmol/L (3.5-5.1)
--- NOTE | 2019-03-23 18:24 | NUR ---
ASSESSMENT DOCUMENTED. PT REFUSED TO TURN R/T "WANTING TO SLEEP." PT RESTING IN BED WITH CALL LIGHT IN REACH. WILL CONTINUE TO MONITOR.
--- NOTE | 2019-03-24 04:13 | NUR ---
PT A0 X2. VSS. INCONTINENT. BED REPOSITONING TOLERATED. PT DENIE CHEST PAIN, BUT REPORTS MINIMAL LE PAIN. NO BEHAVIOR NOTED. PT CURRENTLY STABLE. WILL COUNTINUE WITH POC
[2019-03-24 04:21] VITALS: BP 143/91
[2019-03-24 04:40] LABS: HEMATOCRIT 41.1 % (42.0-52.0); HEMOGLOBIN 13.1 gm/dL (14.0-18.0); MCH 28.2 pg (26.0-34.0); MCHC 31.8 g/dL (28.0-37.0); MCV 88.8 fL (80.0-100.0); RBC 4.63 mil/uL (4.50-6.00); RDW 14.4 % (10.5-14.5); WBC 7.5 thou/uL (4.0-11.0)
[2019-03-24 05:00] LABS: CALCIUM 8.6 mg/dL (8.5-10.1); CREATININE 1.3 mg/dL (0.7-1.3); MAGNESIUM 1.7 mg/dL (1.8-2.4)
[2019-03-24 05:02] LABS: POTASSIUM 3.9 mmol/L (3.5-5.1)
[2019-03-24 07:30] VITALS: BP 157/73
[2019-03-24 11:30] VITALS: BP 152/62
--- NOTE | 2019-03-24 11:59 | NUR ---
Renee spoke with Deb Duran at [facility] the level II screening that is in process. RENEE sent corrected DA 124 C.
[2019-03-24] MEDS ORDERED: KEFLEX500 M1 PO (12:08)
[2019-03-24] MEDS ORDERED: MAGNESIUM400 MG PO (12:18)
[2019-03-24] MEDS ORDERED: K-DUR 20 MEQ T20 MEQ PO (12:18)
--- NOTE | 2019-03-24 13:46 | NUR ---
PT DISCHARGING TODAY BACK TO [facility] FAXED DC ORDERS/SUMMARY TO FACILITY SPOKE WITH JIMMY LOPEZ SHE RECEIVED DC ORDERS AND ARRANGED TRANCPORT BACK TO FACILITY BY [facility] FOR [id number] TODAY. NOTIFIED PT'S BROTHER (RAMESH) OF DC AND TIME OF TRANSPORT. UNIT NOTIFIED AND CHART COPY PER US. RN TO CALL REPORT TO [phone].
--- NOTE | 2019-03-24 16:59 | NUR ---
PT CARE ASSUMED APPROX 0700. ASSESSMENTS CHARTED. PT DENIES PAIN AND SOA. VSS. APPROVED FOR DISCHARGE EARLIER THIS SHIFT. TRANSPORTATION ARRIVED WITH WHEELCHAIR BUT PT HAS NOT BEEN ABLE TO STAND PIVOT. TRANSPORTATION TO RETURN SOON WITH STRETCHER. REPORT CALLED TO PT'S RESIDENTIAL FACILITY. RECEIVING NURSE DENIES QUESTIONS OR CONCERNS REGARDING POC. PT'S WHEELCHAIR RECOVERED AND AT BEDSIDE TO GO BACK THE FACILITY WITH HIM. IV OUT, TELE BOX OFF. WILL MONITOR UNTIL TRANSPORTATION ARRIVES APPROX 1800.
--- NOTE | 2019-03-24 17:36 | NUR ---
Patient admits to acute care from [facility] for need of potassium IV and montor labs. Dr Harrington met with patient who appears better with behaviors she reports can dc to [facility] today. [facility] loss prevention representative at hospital today and agreeable for return. DC faxed orders and arranged stretcher van transport no further needs.
--- NOTE | 2019-03-24 18:29 | NUR ---
PT DISCHARGED AT THIS TIME. WHEELCHAIR IN PT POSSESSION.
== END 2019-03-24 18:24 | DRG 641 ==
LOC: 2N 18:22
PROVIDERS: ADMIT Internal Medicine
DX: E87.6 Hypokalemia (principal); L03.90 Cellulitis, unspecified; I13.0 Hypertensive heart and chronic kidney disease with heart failure and stage 1 through stage 4 chronic kidney disease, or unspecified chronic kidney disease; F03.91 Unspecified dementia, unspecified severity, with behavioral disturbance; E11.51 Type 2 diabetes mellitus with diabetic peripheral angiopathy without gangrene; E11.22 Type 2 diabetes mellitus with diabetic chronic kidney disease; N18.9 Chronic kidney disease, unspecified; E03.9 Hypothyroidism, unspecified; J44.9 Chronic obstructive pulmonary disease, unspecified; E78.5 Hyperlipidemia, unspecified; G40.909 Epilepsy, unspecified, not intractable, without status epilepticus; M81.0 Age-related osteoporosis without current pathological fracture; K21.9 Gastro-esophageal reflux disease without esophagitis; F25.9 Schizoaffective disorder, unspecified; F41.9 Anxiety disorder, unspecified; M10.9 Gout, unspecified; R00.1 Bradycardia, unspecified; Z79.84 Long term (current) use of oral hypoglycemic drugs; Z79.899 Other long term (current) drug therapy
CPT/HCPCS: 10081

== ENCOUNTER 2019-05-22 22:28 | Inpatient (IN) | payer OTHER ==
[~2019-05-22] VITALS: Ht 182.9 cm; Wt 153.1 kg
[~2019-05-22 22:28] MED LIST changes: +K-DUR 20 MEQ T20 MEQ PO; +KEFLEX500 M1 PO; +MAGNESIUM400 MG PO
[2019-05-22 22:29] VITALS: BP 145/72
[2019-05-22 23:03] LABS: BE(vivo) 2.6 mmol/L (-2 to +3); HCO3 25.3 mmol/L (22.0-26.0); PCO2 33.3 mmHg (35.0-45.0); PO2 148.4 mmHg (80.0-100.0); pH 7.498 (7.360-7.450); sO2 99.1 % (92.0-98.0)
[2019-05-22 23:21] LABS: HEMATOCRIT 44.2 % (42.0-52.0); HEMOGLOBIN 14.7 gm/dL (14.0-18.0); MCH 28.7 pg (26.0-34.0); MCHC 33.1 g/dL (28.0-37.0); MCV 86.6 fL (80.0-100.0); PLATELET COUNT 208 thou/uL (150-400); RBC 5.11 mil/uL (4.50-6.00); RDW 15.8 % (10.5-14.5); WBC 16.7 thou/uL (4.0-11.0)
[2019-05-22 23:27] LABS: APTT 37.1 Seconds (24.5-32.8); INR 1.2; PROTIME 12.8 Seconds (9.3-11.4)
[2019-05-22 23:37] LABS: ALBUMIN 2.8 g/dL (3.4-5.0); CALCIUM 9.1 mg/dL (8.5-10.1); CREATININE 2.3 mg/dL (0.7-1.3); MAGNESIUM 1.5 mg/dL (1.8-2.4); TOTAL BILIRUBIN 1.6 mg/dL (<0.1-1.0); TOTAL PROTEIN 7.1 g/dL (6.4-8.2); TROPONIN-I 0.36 ng/mL (<0.06)
[2019-05-22 23:45] LABS: POTASSIUM 2.8 mmol/L (3.5-5.1)
[2019-05-22 23:45] LABS: URINE BILIRUBIN 1+ (Negative); URINE BLOOD 3+ (Negative); URINE CLARITY TURBID; URINE COLOR YELLOW; URINE GLUCOSE-RANDOM* NEGATIVE (Negative); URINE KETONES NEGATIVE (Negative); URINE LEUKOCYTES-REFLEX NEGATIVE (Negative); URINE NITRITE-REFLEX NEGATIVE (Negative); URINE PROTEIN (DIPSTICK) 2+ (Negative); URINE SPECIFIC GRAVITY 1.025 (1.005-1.035)
[2019-05-22 23:52] LABS: AMORPHOUS URATES Moderate /LPF (None Seen); BACTERIA-REFLEX 1-9 Few /HPF (None Seen); CELLULAR CASTS 4-10 Moderate /LPF (None Seen); HYALINE CASTS 0-3 Few /LPF (None Seen); MUCUS 4-6 Moderate strn/LPF (None Seen); SQUAMOUS 4-10 Moderate /LPF (0-3); URINE WBC-REFLEX 0-5 Rare /HPF (0-5)
[2019-05-22 23:58] LABS: ABSOLUTE NEUTROPHILS 13.9 thou/uL (1.4-8.2); PLATELET ESTIMATE NORMAL
[2019-05-23] VITALS (60 sets, daily range): BP systolic 85–161; BP diastolic 37–83
--- NOTE | 2019-05-23 01:51 | NUR ---
EMREGENCY RSI MEDICATIONS GIVEN- ETOMIDATE 15 ML GIVEN, CARMEN GIVEN 10 ML
[2019-05-23 02:44] LABS: BE(vivo) 1.1 mmol/L (-2 to +3); HCO3 22.3 mmol/L (22.0-26.0); PCO2 26.6 mmHg (35.0-45.0); PO2 416.5 mmHg (80.0-100.0); pH 7.542 (7.360-7.450); sO2 99.9 % (92.0-98.0)
[2019-05-23 03:52] LABS: CALCIUM 8.3 mg/dL (8.5-10.1); CREATININE 2.3 mg/dL (0.7-1.3)
[2019-05-23 04:01] LABS: HEMATOCRIT 42.5 % (42.0-52.0); HEMOGLOBIN 13.7 gm/dL (14.0-18.0); MCH 28.5 pg (26.0-34.0); MCHC 32.3 g/dL (28.0-37.0); MCV 88.4 fL (80.0-100.0); PLATELET COUNT 171 thou/uL (150-400); RBC 4.81 mil/uL (4.50-6.00); RDW 15.9 % (10.5-14.5); WBC 12.7 thou/uL (4.0-11.0)
[2019-05-23 04:08] LABS: POTASSIUM 2.8 mmol/L (3.5-5.1)
[2019-05-23 04:39] LABS: TSH 0.219 uIU/mL (0.358-3.740)
[2019-05-23 05:03] LABS: ABSOLUTE NEUTROPHILS 10.7 thou/uL (1.4-8.2)
[2019-05-23 05:04] LABS: ANISOCYTOSIS 1+; PLATELET ESTIMATE NORMAL; POIKILOCYTOSIS 1+; TEARDROPS 1+
--- NOTE | 2019-05-23 08:41 | EKG ---
[facility] [place] [address] ELECTROCARDIOGRAM REPORT Name: MAUREEN MARTINEZ Room #: 238-P ADM IN M.R.#: [id number] Admission: 05/23/19 Attend Phys: Nishant Bains MD Discharge: Date of : 54 Report #: [id number] THIS REPORT FOR: cc: Mauricio Guerra MD, Shyam MD Couchonnal, Luis F. MD ~ THIS REPORT FOR: //name// [facility] ED Test Date: 2019-05-23 Test Time: 00:55:03 Pat Name: MAUREEN MARTINEZ Department: Room: 238 Gender: M Social Work Supervisor: : 1950 Requested By: Ger Scanlon Order Number: [id number] MD: Ant Pak Measurements Intervals Gila Rate: 115 P: 0 GA: QRS: -71 QRSD: 124 T: 49 QT: 451 QTc: 624 Interpretive Statements Normal sinus rhythm. First degree AV block. IVCD Anterior infarct, old Compared to ECG 03/17/2019 16:13:10 Myocardial infarct finding still present Electronically Signed On 05-23-2019 8:40:27 CDT by Ant Pak [email or web address] <ELECTRONICALLY SIGNED> By: Ant Pak MD 05/23/19 0840 0055 0055 Ant Pak MD /EPI
--- NOTE | 2019-05-23 10:29 | NUR ---
chart review. cm unable to visit with pt on phone call. on high flow o2. per chart pt from [facility], been to hospital [facility] in the past, also had [facility] stay in the past as well. cm spoke with charge nurse flakita with [facility] and report provided." needs assist 1-2 with transfers, uses wheel chair and has to be pushed to dinning room for meals. he is able to feed himself meals with set up. incont of bowel and bladder. he is usually a & 0 x 3 and able to make his needs know. has cellulitis in past with his legs and he was ok then by evening shift he was not."/[facility] nurse flakita. when pt is medically stable for dc back to [facility]. chart copy to be sent, report to be called to [phone] and fax dc orders to [phone]. no anticipated dc over the weekend. covid 19 pending.
--- NOTE | 2019-05-23 10:43 | NUR ---
Nutrition: RD received consult for tube feed recs. REC Pivot 1.5 formula to reach goal rate of 55 mL/hr. Defer fluid needs to physician.
[2019-05-23 11:37] LABS: CALCIUM 7.9 mg/dL (8.5-10.1); CREATININE 2.7 mg/dL (0.7-1.3); POTASSIUM 3.1 mmol/L (3.5-5.1)
--- NOTE | 2019-05-23 12:38 | NUR ---
VASCULAR ACCESS Marycarmen MARTIN CONSULTED. R & L IJ VERY SMALL SO CENTRAL LINE NOT ADVISED. RONDA CEPHALIC AND BASILIC WIDELY PATENT WITH USG. ATTEMPTED X3 WITH 2 KITS BUT KEEP HITTING BLOCKAGE UNSBLE TO THREAD CATH. RON WEN NOTIFIED, ADVISED TO CALL IR FOR LINE PLACEMENT.
--- NOTE | 2019-05-23 15:08 | HC ---
[facility] [place] [address] CONSULTATION Name: MAUREEN MARTINEZ Room #: 238-P [facility] IN M.R.#: [id number] Admission: 05/23/19 Attend Phys: Nishant Bains MD Discharge: Date of : 54 Report #: [id number] THIS REPORT FOR: cc: Mauricio Guerra MD, Shyam MD Althoff,Mars Ardon MD ~ CC: Nishant Guerra DATE OF SERVICE: 05/23/2019 CHIEF COMPLAINT: Lower extremity ulcerations. HISTORY OF PRESENT ILLNESS: This is a 68-year-old male patient with whom I am familiar from previous hospitalizations with a history of dementia and peripheral vascular disease and chronic venous ulcers to his lower extremities, who stays at [facility]. He was admitted with fever, low oxygen saturations, and temperature of 103.7. He has been intubated and is in ICU. He is noted to have ulcerations on both lower legs and I have been asked to see him with regard to wound care. The patient at this point can provide no information about himself. PAST MEDICAL HISTORY: Positive for seizure disorder, osteoporosis, chronic kidney disease, bilateral lower extremity edema, gastroesophageal reflux disease, congestive heart failure, peripheral vascular disease, bipolar disorder, intellectual disability, schizoaffective disorder, anxiety, gout, dysphagia. SOCIAL HISTORY: Positive for previous alcohol use. Negative for tobacco or drug use. FAMILY HISTORY: Unknown. REVIEW OF SYSTEMS: Unobtainable due to current condition being intubated and unresponsive. ALLERGIES: No known drug allergies. MEDICATIONS: TriCor, Depakote, Glucophage, amlodipine, Os-Guillermo, Tylenol, Zetia, Lasix, levothyroxine, lorazepam, Lipitor, fluoxetine, zinc oxide and quetiapine. PHYSICAL EXAMINATION: VITAL SIGNS: Include temperature 37.0, pulse 90, respiratory rate 21, and blood pressure of 85/48. GENERAL: This is a chronically ill-appearing male patient who is minimally responsive. [address] [address] CONSULTATION Name: MAUREEN MARTINEZ Lala Room #: 238- ADM IN M.R.#: [id number] Admission: 05/23/19 Attend Phys: Nishant Bains MD Discharge: Date of : 54 Report #: [id number] HEENT: Head, normocephalic. Nose and throat clear. LUNGS: Diminished. ABDOMEN: Soft. EXTREMITIES: The lower extremities demonstrate edema, venous stasis dermatitis and some superficial venous ulcerations. These are not much different than the last time I saw him here in the hospital. LABORATORY DATA: Include sodium 144, potassium 3.1, chloride 105, CO2 19, BUN 28, creatinine 2.7, and glucose 202. Arterial blood gas; pH 7.542, pCO2 of 26, pO2 416, and bicarbonate 22. White blood cell count is 12.7 with a hemoglobin of 13.7. Albumin 2.8. Troponin I is 0.36. BNP is 5148. CLINICAL IMPRESSION 1. Severe sepsis. 2. Acute respiratory failure, requiring intubation, mechanical ventilation. 3. Venous ulcers and stasis dermatitis, bilateral lower extremities. 4. Paroxysmal atrial fibrillation. 5. Peripheral vascular disease. 6. chronic kidney disease. 7. Dementia. 8. Diabetes type 2. 9. Morbid obesity. RECOMMENDATIONS: At this point in time, the patient will be placed on low air loss mattress, q.2 hour turning and repositioning. Recommend AmLactin lotion, Xeroform, Kerlix, Elijah wraps from toes to knees bilaterally. The patient will need ongoing nutritional support. We will need continuation of current medications. I appreciate being asked to see him in consultation. <ELECTRONICALLY SIGNED> By: Mars Sanders MD 05/23/19 1508 1441 1453 Mars Sanders MD /nt
--- NOTE | 2019-05-23 18:33 | NUR ---
INTUBATED AND SEDATED WITH FENTANYL AND VERSED. FIO2 DOWN TO .40 RESPONDS TO PAIN. BLE WOUNDS CLEANED AND DRESSED, WRAPPED IN CECILIA BANDAGE. RIJ TLC PLACED BY IR TODAY.
[2019-05-23 20:23] LABS: MAGNESIUM 2.2 mg/dL (1.8-2.4); POTASSIUM 3.5 mmol/L (3.5-5.1)
--- NOTE | 2019-05-23 20:36 | NUR ---
ELECTROLYTES REPLACED, POTASSIUM 3.5, MAGNESIUM 2.2. IV LASIX GIVEN, PATIENT HAS LESS THAN 30 ML OUTPUT IN SCHMIDT. SPOKE WITH DR. CURTIS ABOUT URINE OUTPUT, NO NEW ORDERS NOTED. PROVIDER AWARE. RECIEVED LAB RESULTS, PATIENT IS COVID NEGATIVE, SPOKE WITH DR. CURTIS AND CRYSTAL DEMPSEY ABOUT RESULTS. PATIENT WILL BE MOVED TO POD 2 ROOM 243.
[2019-05-24] VITALS (73 sets, daily range): BP systolic 95–136; BP diastolic 40–69
[2019-05-24] MEDS ORDERED: LAC-HYDRIN FIV226 GM TOP (01:40)
[2019-05-24] MEDS ORDERED: COMBIVENT INH (01:43)
[2019-05-24] MEDS ORDERED: KLOR-CON M2020 MEQ PO (01:48)
[2019-05-24 04:33] LABS: ABSOLUTE NEUTROPHILS 9.1 thou/uL (1.4-8.2); BASOPHILS 0.3 % (0.0-2.0); HEMATOCRIT 36.4 % (42.0-52.0); HEMOGLOBIN 11.8 gm/dL (14.0-18.0); LYMPHOCYTES 10.3 % (24.0-44.0); MCH 28.6 pg (26.0-34.0); MCHC 32.5 g/dL (28.0-37.0); MCV 87.9 fL (80.0-100.0); MONOCYTES 7.1 % (1.0-8.0); PLATELET COUNT 146 thou/uL (150-400); POLYS 82.3 % (36.0-66.0); RBC 4.14 mil/uL (4.50-6.00); RDW 16.5 % (10.5-14.5)
[2019-05-24 05:05] LABS: CALCIUM 8.1 mg/dL (8.5-10.1); CREATININE 3.3 mg/dL (0.7-1.3); POTASSIUM 3.3 mmol/L (3.5-5.1)
[2019-05-24 10:40] LABS: BE(vivo) -4.3 mmol/L (-2 to +3); HCO3 21.9 mmol/L (22.0-26.0); PO2 104.5 mmHg (80.0-100.0); sO2 97.3 % (92.0-98.0)
[2019-05-24 10:41] LABS: pH 7.306 (7.360-7.450)
--- NOTE | 2019-05-24 19:17 | NUR ---
ASSUMED CARE AT 0700, ASSESSMENT AND VITAL SIGNS COMPLETED PER ICU PROTOCOL. DR. CHU ROUNDED THIS AM, NO NEW ORDERS RECEIVED. DR. GONZALES ROUNDED THIS AM, NEW ORDERS RECEIVED. RT PERFORMED CPAP TRIAL FROM [id number], ABGs ACQUIRED AFTER TRIAL, REPORTED TO DR. RODRIGUEZ, PT REVERTED TO A/C. DR. RODRIGUEZ ROUNDED THIS AFTERNOON, NO NEW ORDERS RECEIVED. FAMILY CALLED UNIT, RN UPDATED ON CARE AND CONDITION. PT PROGRESSING TOWARDS PLAN OF CARE.
[2019-05-25] VITALS (46 sets, daily range): BP systolic 105–143; BP diastolic 52–73
[2019-05-25 05:34] LABS: BE(vivo) -2.6 mmol/L (-2 to +3); HCO3 21.5 mmol/L (22.0-26.0); PCO2 35.6 mmHg (35.0-45.0); PO2 85.7 mmHg (80.0-100.0); pH 7.399 (7.360-7.450); sO2 96.5 % (92.0-98.0)
[2019-05-25 05:53] LABS: HEMATOCRIT 35.3 % (42.0-52.0); HEMOGLOBIN 11.4 gm/dL (14.0-18.0); MCH 28.4 pg (26.0-34.0); MCHC 32.4 g/dL (28.0-37.0); MCV 87.6 fL (80.0-100.0); RBC 4.03 mil/uL (4.50-6.00); RDW 16.3 % (10.5-14.5); WBC 9.9 thou/uL (4.0-11.0)
[2019-05-25 06:15] LABS: ALBUMIN 1.7 g/dL (3.4-5.0); CALCIUM 8.2 mg/dL (8.5-10.1); CREATININE 2.8 mg/dL (0.7-1.3); MAGNESIUM 2.4 mg/dL (1.8-2.4); POTASSIUM 3.1 mmol/L (3.5-5.1); TOTAL BILIRUBIN 0.6 mg/dL (<0.1-1.0); TOTAL PROTEIN 6.2 g/dL (6.4-8.2)
--- NOTE | 2019-05-25 07:00 | NUR ---
ASSUMED CARE OF PT AT 2300. NO OVERNIGHT EVENTS. PT INTUBATED AND ON VENT, SEDATED WITH VERSED AND FENTANYL GTTS FOR VENT MANAGMENT. PT IS PROGRESSING TOWARDS GOALS. WILL CONTINUE TO MONITOR.
--- NOTE | 2019-05-25 08:34 | 2DMMODE ---
[facility] [place] [address] 2 D/M-MODE ECHOCARDIOGRAM Name: MAUREEN MARTINEZ Room #: 243-P ADM IN M.R.#: [id number] Admission: 05/23/19 Attend Phys: Nishant Bains MD Discharge: Date of : 54 Report #: [id number] THIS REPORT FOR: cc: Mauricio Guerra MD, Shyam MD Mancuso, Gerald M. MD LOCATED WITHIN [facility] ~ APPROVED REPORT Study performed: 05/24/2019 10:46:31 EXAM: Comprehensive 2D, Doppler, and color-flow Echocardiogram Patient Location: Bedside Room #: 243 Status: on-call BSA: 2.69 HR: 83 bpm BP: 125/55 mmHg Rhythm: NSR Other Information Study Quality: Adequate Technically limited study due to body habitus, patient on ventilator. Risk Factors: Cardiac Risk Factors: HTN, Hyperlipidemia, DM Indications Congestive Heart Failure Sepsis Dyspnea Elevated Troponin 2D Dimensions IVSd: 13.57 (7-11mm) LVOT Diam: 21.00 (18-24mm) LVDd: 51.43 mm PWd: 12.62 (7-11mm) Ascending Ao: 39.54 (22-36mm) LVDs: 37.49 (25-40mm) Aortic Root: 33.39 mm Volumes Left Atrial Volume (Systole) Single Plane 4CH: 47.07 mL Single Plane 2CH: 46.[address] [facility] [place] [place] [address] 2 D/M-MODE ECHOCARDIOGRAM Name: MAUREEN MARTINEZ Lala Room #: 243-P [facility] IN .R.#: [id number] Admission: 05/23/19 Attend Phys: Nishant Bains MD Discharge: Date of : 54 Report #: [id number] ESV Index: 22.00 mL/m2 Aortic Valve AoV Peak Akin.: 1.59 m/s AO Peak Gr.: 12.53 mmHg LVOT Max P.66 mmHg LVOT Max V: 0.96 m/s JIAN Vmax: 2.10 cm2 AI Vmax: 2.61 m/s AI [place]z [place]ce: 0.65 m/s2 AI PHT: 1162.18 ms Mitral Valve E/A Ratio: 1.4 MV Decel. Time: 175.11 ms MV E Max Akin.: 1.07 m/s MV A Akin.: 0.74 m/s MV PHT: 50.78 ms TDI E/Lateral E': 15.29 E/Medial E': 21.40 Medial E' Akin.: 0.05 m/s Lateral E' Akin.: 0.07 m/s Pulmonary Valve PV Peak Akin.: 1.17 m/s PV Peak Gr.: 5.49 mmHg Pulmonary Vein P Vein S: 0.64 m/s P Vein A: 0.26 m/s P Vein D: 0.44 m/s P Vein A Dur.: 69.2 msec P Vein S/D Ratio: 1.45 Left Ventricle The left ventricle is normal size. There is normal LV segmental wall motion. Moderate concentric left ventricular hypertrophy. Left ventricular systolic function is normal. The left ventricular ejection fraction is within the normal range. LVEF is 55%. The left ventricular diastolic function is normal. Right Ventricle The right ventricle is normal size. The right ventricular systolic function is normal. Atria The left atrium size is normal. The right atrium size is normal. [facility] [place] [address] [address] 2 D/M-MODE ECHOCARDIOGRAM Name: MAUREEN MARTINEZ Room #: 243-P ADM IN M.R.#: [id number] Admission: 05/23/19 Attend Phys: Nishant Bains MD Discharge: Date of : 54 Report #: [id number] Aortic Valve The aortic valve is normal in structure. Trace aortic regurgitation. There is no aortic valvular stenosis. Mitral Valve The mitral valve is normal in structure. Trace to mild mitral regurgitation. No evidence of mitral valve stenosis. Tricuspid Valve The tricuspid valve is normal in structure. There is no tricuspid valve regurgitation noted. Pulmonic Valve The pulmonary valve is normal in structure. Trace pulmonic regurgitation. Great Vessels The aortic root is normal in size. The ascending aorta is borderline dilated and is 4.0 cm. The IVC is dilated. Pt. is on a ventilator. Pericardium There is no pericardial effusion. <Conclusion> The left ventricle is normal size. Moderate concentric left ventricular hypertrophy. LVEF is 55%. The right ventricle is normal size. The left atrium size is normal. Trace aortic regurgitation. Trace to mild mitral regurgitation. There is no tricuspid valve regurgitation noted. The aortic root is normal in size. The ascending aorta is borderline dilated and is 4.0 cm. There is no pericardial effusion. <ELECTRONICALLY SIGNED> By: Lloyd Krueger MD, FACC 05/25/1931 2 2 Lloyd Krueger MD, FACC /INF
--- NOTE | 2019-05-25 15:57 | NUR ---
PT REMAINS ON THE VENT. POTASSIUM REPLACED TODAY PER ORDER. CELLULITIS OF BILATERAL LOWER LEGS TREATEMENT AND WRAPED WITH CECILIA WRAP. LUNGS REMAINS COARSE WITH WHEZZES NOTED. HX. SEIZURE ON MEDS FOR . OPENS HIS EYES. NG TO LEFT NARE WITH GREEN BILE. TO LOW INTERMITENT SUCTION. REMAINS IN RESTRAINTS BIALTERAL. SCHMIDT TO DD WITH LESLI URINE PRESENT. TURN Q 2 HOURS FOR RESPOSTIONING. WILL CONTINUE TO PROGRESS TOWARDS GOALS OF CARE PLAN
[2019-05-26] VITALS (26 sets, daily range): BP systolic 132–179; BP diastolic 60–78
[2019-05-26 03:37] LABS: HEMATOCRIT 35.7 % (42.0-52.0); HEMOGLOBIN 11.7 gm/dL (14.0-18.0); MCH 28.3 pg (26.0-34.0); MCHC 32.7 g/dL (28.0-37.0); MCV 86.4 fL (80.0-100.0); RBC 4.13 mil/uL (4.50-6.00); RDW 16.8 % (10.5-14.5); WBC 10.5 thou/uL (4.0-11.0)
[2019-05-26 03:52] LABS: ALBUMIN 1.6 g/dL (3.4-5.0); CALCIUM 8.3 mg/dL (8.5-10.1); CREATININE 2.2 mg/dL (0.7-1.3); MAGNESIUM 2.4 mg/dL (1.8-2.4); POTASSIUM 3.1 mmol/L (3.5-5.1); TOTAL BILIRUBIN 0.5 mg/dL (<0.1-1.0); TOTAL PROTEIN 6.1 g/dL (6.4-8.2)
--- NOTE | 2019-05-26 06:20 | NUR ---
ASSUMED CARE FOR PT AT APPROX 2300. FOLLOWING POC WITH IVF AND IVPB ANTIBIOTICS. LABS RESULTED IN K+ 3.1. CALLED AND RECEIVED ORDERS FOR 40 MEQ REPLACEMENT IV. HR ARE SOFT IN THE 50'S, BUT REVIEW OF PT RECORD, HE RUNS 50-60. URINE OUTPUT 950ML AND URINE IS CLOUDY. WILL CONTINUE TO MONITOR.
--- NOTE | 2019-05-26 10:00 | NUR ---
ASSUMMED CARE AT 0700 FROM THE NIGHT NURSE. ASSESSMENT COMPLEDED. VERSED DOWN TO 1MG/HR AND FENTANYL DOWN TO 25MCG/HR FOR SEDATION VACATION. PATIENT WILL OPEN EYES BUT WILL NOT FOLLOW COMMANDS. PATIENT IS CALM SO SEDATION REMAINS LOWER. KCL INFUSING FOR SERUM POTASSIUM OF 3.1. WILL CONTINUE TO MONITOR PATIENT.
--- NOTE | 2019-05-26 11:24 | HC ---
[facility] [place] [address] CONSULTATION Name: MAUREEN MARTINEZ Room #: [facility] IN M.R.#: [id number] Admission: 05/23/19 Attend Phys: Nishant Bains MD Discharge: Date of : 54 Report #: [id number] THIS REPORT FOR: cc: Mauricio Guerra MD,Mauricio Mcdermott,Ger Kang MD ~ CC: Nishant Guerra DATE OF SERVICE: 05/23/2019 INFECTIOUS DISEASE CONSULTATION REASON FOR CONSULTATION: I was asked to evaluate concerning persistent fever, sepsis, respiratory failure. HISTORY OF PRESENT ILLNESS: The patient is a 68-year-old underlying history of schizoaffective disorder, bipolar disorder and developmental delay, yesterday noticed fever with temperature over 103 degrees. He has had some dyspnea and cough. Also, he has had bilateral lower extremity swelling, edema, and erythema. He was brought in through the Emergency Room with hypoxia. He did not improve and was intubated. There has been small to moderate amount of tracheal secretions. Continues to run fever. Nursing notes he was sedated, but able to follow commands. He has had decreased urine output. No reported chest pain. No other rashes. No nausea, vomiting or diarrhea. No gross aspiration noted. Does live in a group home. No COVID outbreak has been noted there. PAST MEDICAL HISTORY: Schizoaffective disorder, bipolar disorder, intellectual disability, seizure disorder, gout, dysphagia, gastroesophageal reflux, chronic kidney disease, osteoporosis, peripheral vascular disease, paroxysmal atrial fibrillation, chronic venous stasis disease, previous cellulitis and lymphangitis. ALLERGIES: None known. MEDICATIONS: As noted on his MAR, now on vancomycin and Zosyn. FAMILY HISTORY: No report of tuberculosis. SOCIAL HISTORY: Past smoker, no significant alcohol use. Residing in a group home. REVIEW OF SYSTEMS: The patient was unable to give any further details for a complete 14-point review. PHYSICAL EXAMINATION: Due to PPE conservation program, examination as noted by [facility] [address] [place] [address] CONSULTATION Name: MAUREEN MARTINEZ Lala Room #: [address] [place] [address] IN .R.#: [id number] Admission: 05/23/19 Attend Phys: Nishant Bains MD Discharge: Date of : 54 Report #: [id number] attending service. This was reviewed. Discussed with nursing staff, who is in agreement with the findings. The patient was viewed at the full window and his doorway and was able to be viewed. Please note that the patient continues to run fever, is intubated on FiO2 of 50%, PEEP of 6. He is obese. Could see bilateral lower extremity erythema below the knee. LABORATORY STUDIES: Chest x-ray: Patchy basilar atelectasis. Blood and sputum cultures are pending. White count is 12, hemoglobin 13, 38% bands. Creatinine is 2.7. Lactate 5.4, bilirubin 1.6 with an AST of 161. Troponin was 0.5. BNP 5000. Procalcitonin 10. Influenza antigen negative. Urinalysis unremarkable. IMPRESSION: A 68-year-old group home resident, presents with fever, bilateral basilar infiltrates, respiratory failure, venous stasis disease with suspected skin and soft tissue infection, yet unclear if coronavirus is playing a role here. Also, has acute kidney injury, leukocytosis with marked left shift. RECOMMENDATIONS: We will continue broad antibiotic coverage with vancomycin and Zosyn. Check for respiratory pathogens. Await coronavirus testing; if positive, we will consider further treatment, although his QTC interval was 624. We will need cardiovascular medicine recommendations before considering hydroxychloroquine. Continue coverage for possible skin and soft tissue infection contributing here. Control edema. Monitor laboratory studies including his kidney function, serial CBC with differential, lactates and CRP, procalcitonin levels. The patient will remain in the ICU and precautions until coronavirus studies are back. <ELECTRONICALLY SIGNED> By: Ger Mcdermott MD 05/26/19 1124 1416 1519 Ger Mcdermott MD /nt
--- NOTE | 2019-05-26 12:15 | NUR ---
PRECEDEX STARTED AT 0.2 MCG/KG/HR, VERSED REMAINS AT 1MG/HR. WILL OPEN EYES. TUBE FEEDING STARTED PER NGT PER ORDER. O2 SAT REMAINS 92 TO 94%. WILL CONTINUE TO MONITOR.
--- NOTE | 2019-05-26 13:15 | NUR ---
discussed during los, pt remains on vent, possible weaning and wean down on sedation. pt from [facility]. will cont following as needed for dc needs.
--- NOTE | 2019-05-26 13:30 | NUR ---
CALL PLACED TO PATIENT'S FAMILY, NO ANSWER IT WENT TO VOICE MAIL. BROTHER DARON CALLED IN AT JORGE 1200 BUT HAD TO TAKE ANOTHER CALL AND WOULD CALL BACK.
--- NOTE | 2019-05-26 14:30 | NUR ---
BROTHER DARON AND SISTER IN LAW TILA CALLED IN, UPDATED TO THE PATIENT'S STATUS. REASSURANCE GIVEN AND UPDATED TO THE POC, STARTING TUBE FEEDINGS. TURNED AND REPOSITIONED, AGGITATED WITH MOVEMENT, PRECEDEX AND FENTANYL TITRATED FOR COMFORT, TEMP INCREASING. ROOM TEMP TURNED DOWN AND COOL CLOTHE TO HEAD FOR COMFORT. WILL CONTINUE TO MONITOR.
--- NOTE | 2019-05-26 18:13 | NUR ---
PATIENT PROGRESSING SLOWLY TOWARDS OUTCOME GOALS EVIDENT BY, OPEN EYES SPONTOOULSY, WITH SEDATION OF PRECEDES AND FENTANYL. MONITOR SR WITH 1ST DEGREE BLOCK. VSS. SCHMIDT AND NGT ARE PATENT. PATIENT REMAINS EDEMATOUS WITH INTAKE MORE THAN OUTPUT. WILL CONTINUE TO MONITOR.
[2019-05-27] VITALS (28 sets, daily range): BP systolic 122–175; BP diastolic 55–95
[2019-05-27 03:27] LABS: BE(vivo) -3.6 mmol/L (-2 to +3); HCO3 20.3 mmol/L (22.0-26.0); pH 7.406 (7.360-7.450); sO2 96.7 % (92.0-98.0)
[2019-05-27 06:00] LABS: HEMATOCRIT 37.9 % (42.0-52.0); HEMOGLOBIN 12.1 gm/dL (14.0-18.0); MCH 28.3 pg (26.0-34.0); MCHC 31.9 g/dL (28.0-37.0); MCV 88.7 fL (80.0-100.0); PLATELET COUNT 137 thou/uL (150-400); RBC 4.28 mil/uL (4.50-6.00); RDW 16.7 % (10.5-14.5); WBC 7.9 thou/uL (4.0-11.0)
[2019-05-27 06:20] LABS: ALBUMIN 1.7 g/dL (3.4-5.0); CALCIUM 8.3 mg/dL (8.5-10.1); MAGNESIUM 2.5 mg/dL (1.8-2.4); POTASSIUM 3.5 mmol/L (3.5-5.1); TOTAL BILIRUBIN 0.5 mg/dL (<0.1-1.0); TOTAL PROTEIN 6.2 g/dL (6.4-8.2)
[2019-05-27 08:33] LABS: ABSOLUTE NEUTROPHILS 5.9 thou/uL (1.4-8.2); ANISOCYTOSIS SLIGHT; ATYPICAL LYMPHS 2 %; LARGE PLATELETS FEW; NUCLEATED RBCS 1 /100WBC; POIKILOCYTOSIS SLIGHT
--- NOTE | 2019-05-27 09:06 | NUR ---
RN ASSUMED CARE OF PATIENT AT 0700. PATIENT BRADYCARDIC AND ON VERY LIGHT SEDATION AT SHIFT CHANGE. RN INCREASING FENTANYL GTT FOR COMFORT. TUBE FEEDING CHANGED TP NEPRO PER DR. QUINN'S ORDERS AT 0900.
[2019-05-28] VITALS (26 sets, daily range): BP systolic 131–175; BP diastolic 44–79
[2019-05-28 05:31] LABS: ALBUMIN 1.7 g/dL (3.4-5.0); CALCIUM 8.3 mg/dL (8.5-10.1); CREATININE 1.6 mg/dL (0.7-1.3); PHOSPHORUS 2.8 mg/dL (2.5-4.9); POTASSIUM 3.3 mmol/L (3.5-5.1)
--- NOTE | 2019-05-28 06:14 | NUR ---
P FOLLOWING COMMANDS AND NODDING HIS HEAD. PT SINUS BRADYCARDIC. PT TOLERATING TUBE FEED. NO HYPERTENSIVE EPISODES THROUGHOUT THE NIGHT. CHART CHECK. PT PROGRESSING TOWARDS GOAL. PLAN FOR CPAP TRIAL TODAY. CONTINUE TO MONITOR
--- NOTE | 2019-05-28 07:09 | HC ---
[facility] [place] [address] CONSULTATION Name: MAUREEN MARTINEZ Room #: [facility] ADM IN M.R.#: [id number] Admission: 05/23/19 Attend Phys: Nishant Bains MD Discharge: Date of : 54 Report #: [id number] THIS REPORT FOR: cc: Mauricio Guerra MD, Shyam MD Al-Absi,Sameer Reed MD ~ CC: Nishant Guerra DATE OF SERVICE: 05/24/2019 REASON FOR CONSULTATION: Elevated creatinine. HISTORY OF PRESENT ILLNESS: This is obtained from the medical history. The patient is currently intubated. He is a 68-year-old with past medical history of bipolar disorder, schizoaffective disorder. He presented with persistent fever up to 103. He was also found to be dyspneic by his nursing staff and was sent for further evaluation. The patient had extensive bilateral lower extremity edema and swelling. He was ruled out for COVID-19 infection. He was hypoxic on his presentation. He was intubated. He does not have known previous kidney problems. In fact, he was discharged from our facility back in March with a normal creatinine. When he presented yesterday, he was hypotensive and his creatinine has gone up from 2.3 to 2.7 to 3.3 as of this morning. He made minimal amount of urine. Currently, he is in the ICU with full support. He is followed by Pulmonary Critical Care, Infectious Disease, and Wound Care. I was consulted to manage his acute kidney injury. PAST MEDICAL HISTORY: Obtained from the medical chart. 1. Schizoaffective disorder. 2. Anxiety disorder. 3. Intellectually challenged. 4. Diabetes mellitus. 5. Hypothyroidism. 6. Extensive bilateral lower extremity edema and lymphedema. 7. History of gout. 8. Seizure disorder. 9. Peripheral vascular disease. 10. Atrial fibrillation. 11. Bipolar disorder. ALLERGIES: None listed. FAMILY HISTORY: Unobtainable given the patient's current mental status and intubation status. SOCIAL HISTORY: Resides in a nursing facility. [facility] [address] [place] [address] CONSULTATION Name: MICHELLEMAUREEN Room #: 250-[facility].#: [id number] Admission: 05/23/19 Attend Phys: Nishant Bains MD Discharge: Date of : 54 Report #: [id number] REVIEW OF SYSTEMS: Unobtainable given the patient's current mental status and intubation status. MEDICATIONS: Listed from his nursing facility. 1. Seroquel. 2. Lorazepam. 3. Metformin. 4. Levothyroxine. 5. Fenofibrate. 6. Amlodipine. 7. Atorvastatin. PHYSICAL EXAMINATION: GENERAL: He is intubated. VITAL SIGNS: Blood pressure is 109/54, respiratory rate is 18, pulse rate is 87, temperature is 37.1. Temperature yesterday was up to 38.4. HEAD AND NECK: No jugular venous distention. ET tube in place. CHEST: Decreased air entry bilaterally with minimal crackles. CARDIOVASCULAR: No rub detected, distant S1 and S2. ABDOMEN: Obese. Soft. LOWER EXTREMITIES: Dressing wraps applied over bilateral lower extremities. LABORATORY VALUES: As stated above, he had normal kidney function back in March of this year. Most recent labs from today revealed the following: White blood cell count 11,000, platelet 146, sodium 141, potassium 3.3, BUN is 45, creatinine is 3.3. ASSESSMENT, IMPRESSION AND PLAN: 1. Acute kidney injury due to acute tubular necrosis due to hypotension and acute tubular necrosis. 2. Febrile illness with septic shock. 3. Bilateral lower extremity wounds. 4. Respiratory failure. 5. Hypokalemia. 6. Atrial fibrillation. 7. Peripheral vascular disease. 8. Schizoaffective disorder, bipolar disorder, seizure disorder. 9. Discontinue IV fluids. 10. Obtain cardiac echo. 11. Diuresis. 12. Wound care. 13. Appropriate antibiotic as per the Primary and the Infectious Disease physicians. 14. Avoid nephrotoxins. 15. Follow electrolytes [place] [address] CONSULTATION Name: MAUREEN MARTINEZ Room #: [facility] IN M.R.#: [id number] Admission: 05/23/19 Attend Phys: Nishant Bains MD Discharge: Date of : 54 Report #: [id number] 16. Follow vancomycin level. 17. We will continue to follow. <ELECTRONICALLY SIGNED> By: Sameer Durbin MD 05/28/1909 1 0 Sameer Durbin MD /nt
[2019-05-28 08:54] LABS: BE(vivo) -2.8 mmol/L (-2 to +3); HCO3 22.9 mmol/L (22.0-26.0); PCO2 43.3 mmHg (35.0-45.0); PO2 94.6 mmHg (80.0-100.0); pH 7.342 (7.360-7.450); sO2 96.8 % (92.0-98.0)
--- NOTE | 2019-05-28 09:00 | NUR ---
PT CURRENTLY ON CPAP TRIAL. VSS. SEAMS COMFORTABLE. WILL CONTINUE TO MONITOR.
--- NOTE | 2019-05-28 09:30 | NUR ---
PT UNABLE TO FOLLOW WEANING PARAMETER INSTRUCTIONS. DENIES PAIN. ABG RESULTS AND GENERAL UPDATE GIVEN TO DR. PORTER. WILL ROUND ON PT.
--- NOTE | 2019-05-28 11:00 | NUR ---
DR. PORTER HERE. CHANGED PT BACK OVER ON FULL SUPPORT OF THE VENT. PT FENTANYL INCREASED TO 75MCG/MIN AND TUBE FEEDING RESUMED.
[2019-05-28 11:08] LABS: ADENOVIRUS Negative (Negative); INFLUENZA A Negative (Negative); INFLUENZA B Negative (Negative); METAPNEUMOVIRUS Negative (Negative); PARAINFLUENZA 1 Negative (Negative); PARAINFLUENZA 2 Negative (Negative); PARAINFLUENZA 3 Negative (Negative); RHINOVIRUS Negative (Negative); RSV A Negative (Negative); RSV B Negative (Negative)
--- NOTE | 2019-05-28 11:11 | NUR ---
WOUND CARE F/U ASSESS WOUNDS BILAT LOWER EXTREMITIES W/ STITCH BONDING MACHINE TENDER SONJA, ULCERS HEALING, SCANT DRAINAGE, NO S/S INFECTION, PT REMAINS ON VENT, WOUND CARE PERFORMED PER ORDERS, PHOTOS TAKEN, DR ESTRELLA AND ENIO RN VIEWED PHOTOS RECOMMENDATIONS CONT CURRENT POC. OFF LOADING HEELS, PRESSURE RELIEF, TURN Q 2 HOURS STITCH BONDING MACHINE TENDER AWARE
--- NOTE | 2019-05-28 19:36 | NUR ---
PT CPAP TODAY, TOLORATED WELL. PT PROGRESSING TOWARDS GOALS.
[2019-05-29] VITALS (25 sets, daily range): BP systolic 128–167; BP diastolic 48–99
[2019-05-29 05:32] LABS: BE(vivo) -3.8 mmol/L (-2 to +3); PO2 103.7 mmHg (80.0-100.0); pH 7.371 (7.360-7.450); sO2 97.6 % (92.0-98.0)
[2019-05-29 05:35] LABS: HEMATOCRIT 34.4 % (42.0-52.0); HEMOGLOBIN 11.1 gm/dL (14.0-18.0); MCH 28.5 pg (26.0-34.0); MCHC 32.2 g/dL (28.0-37.0); MCV 88.4 fL (80.0-100.0); PLATELET COUNT 179 thou/uL (150-400); RDW 16.5 % (10.5-14.5); WBC 7.9 thou/uL (4.0-11.0)
[2019-05-29 06:35] LABS: ALBUMIN 1.7 g/dL (3.4-5.0); CALCIUM 8.4 mg/dL (8.5-10.1); CREATININE 1.5 mg/dL (0.7-1.3); POTASSIUM 3.6 mmol/L (3.5-5.1); TOTAL BILIRUBIN 0.5 mg/dL (<0.1-1.0); TOTAL PROTEIN 5.6 g/dL (6.4-8.2)
[2019-05-29 07:30] LABS: ABSOLUTE NEUTROPHILS 5.5 thou/uL (1.4-8.2); METAMYELOCYTES 5 %; MYELOCYTES 1 %
[2019-05-29 07:31] LABS: ANISOCYTOSIS 1+
--- NOTE | 2019-05-29 12:45 | NUR ---
Pt was placed on CPAP mid morning RT per orders from Dr Martinez. Tolerated CPAP without distress. Returned to previous setting without ABG. No plans for extubation today until more diuresis.
--- NOTE | 2019-05-29 19:10 | NUR ---
Report given to RN assuming care, Ami. Pt resting quietly. Maintained on Pt has had periods of asymptomatic bradycardia with rates into 50's. Tolerating tube feedings and water flushes. No stools. No contact with family today. Continue to support and work toward goals.
[2019-05-30] VITALS (21 sets, daily range): BP systolic 117–168; BP diastolic 50–70
[2019-05-30 01:07] LABS: GLYCOHEMOGLOBIN (HGB A1C) 7.4 % (4.8-5.6)
--- NOTE | 2019-05-30 02:23 | NUR ---
ASSUMED PT CARE AT 1900. VSS EXCEPT BP WHICH WAS SLIGHTLY ELEVATED WITH SYSTOLIC IN THE 160s. HYDRALIZINE GIVEN AND PT BP STARTED TRENDING DOWN WNL. PT HAD >50ML/H U/O. PT IS IS ABLE TO FOLLOW COMMANDS, NOD YES/NO TO QUESTIONS AND MOVE EXTREMITIES ALBEIT WITH A WEEK STRENGHT. PT IS STABLE, HAD A GOOD RESTFUL NOC, BATH THIS AM. PT IS PROGRESSING WELL TOWARDS POC GOALS
[2019-05-30 04:55] LABS: ALBUMIN 1.9 g/dL (3.4-5.0); CALCIUM 8.2 mg/dL (8.5-10.1); CREATININE 1.4 mg/dL (0.7-1.3); PHOSPHORUS 2.7 mg/dL (2.5-4.9); POTASSIUM 3.4 mmol/L (3.5-5.1); TOTAL BILIRUBIN 0.6 mg/dL (<0.1-1.0); TOTAL PROTEIN 5.8 g/dL (6.4-8.2)
[2019-05-30 05:23] LABS: HEMATOCRIT 35.1 % (42.0-52.0); HEMOGLOBIN 11.6 gm/dL (14.0-18.0); MCH 28.8 pg (26.0-34.0); MCHC 32.9 g/dL (28.0-37.0); MCV 87.4 fL (80.0-100.0); PLATELET COUNT 199 thou/uL (150-400); RBC 4.02 mil/uL (4.50-6.00); RDW 16.2 % (10.5-14.5); WBC 10.9 thou/uL (4.0-11.0)
[2019-05-30 07:49] LABS: ABSOLUTE NEUTROPHILS 8.7 thou/uL (1.4-8.2); ANISOCYTOSIS SLIGHT; ATYPICAL LYMPHS 1 %; LARGE PLATELETS OCCASIONAL
--- NOTE | 2019-05-30 10:21 | HC ---
[facility] [place] [address] CONSULTATION Name: MAUREEN MARTINEZ Room #: 250-P ADM IN M.R.#: [id number] Admission: 05/23/19 Attend Phys: Nishant Bains MD Discharge: Date of : 54 Report #: [id number] THIS REPORT FOR: cc: Mauricio Guerra MD, Shyam MD Al-Mubaslat, Ahmad MD ~ CC: Nishant Guerra DATE OF SERVICE: 05/29/2019 ENDOCRINE CONSULTATION NOTE CONSULTING PHYSICIAN: Dr. Bush. REASON FOR CONSULTATION: Uncontrolled type 2 diabetes mellitus, hyperglycemia. HISTORY OF PRESENT ILLNESS: This is a 68-year-old male patient whose medical background is significant for multiple medical issues including type 2 diabetes mellitus, peripheral vascular disease, chronic kidney disease, seizure disorder, hypothyroidism as well as cellulitis. The patient presented to the ER on the with complaints of fever, cough and shortness of breath and hypoxemia with his O2 sats running at 88% on room air. The patient was tachypneic and in respiratory distress and was intubated on arrival for respiratory support. The patient continues to be on mechanical ventilation. Again, the patient's background is noted for type 2 diabetes mellitus and having reviewed his medical records at length, the patient is maintained on metformin 500 mg b.i.d. Given his intubated state, I am unable to discern what his level of control had been prior to admission. It is not noted that the patient has significant diabetic complications. The patient is also known to have hypothyroidism and is maintained on levothyroxine 150 mcg daily as an outpatient. He is also known to have hyperlipidemia and is maintained on atorvastatin 40 mg daily as well as fenofibrate 200 mg daily. The patient is chronically on treatment with amlodipine 10 mg daily for hypertension. REVIEW OF SYSTEMS: Cannot be obtained given the patient's intubated and sedated state. PAST MEDICAL HISTORY: 1. Type 2 diabetes mellitus. 2. Hyperlipidemia. 3. Hypertension. 4. Hypothyroidism. [address] [place] [address] CONSULTATION Name: MICHELLEMAUREEN Lala Room #: [facility] IN M.R.#: [id number] Admission: 05/23/19 Attend Phys: Nishant Bains MD Discharge: Date of : 54 Report #: [id number] 5. Seizure disorder. 6. Osteoporosis. 7. Chronic kidney disease. 8. Chronic lower extremity edema. 9. History of lower extremity cellulitis. 10. GERD. 11. CHF. 12. Peripheral vascular disease. 13. Bipolar disorder. 14. Schizoaffective disorder. 15. Anxiety. 16. Gout. OUTPATIENT MEDICATIONS: Include fenofibrate 200 mg daily, Depakote ER 2000 mg at bedtime, metformin 500 mg b.i.d., amlodipine 10 mg at night, calcium carbonate with vitamin D3, Tylenol 325 mg q. 6 hours p.r.n., ezetimibe 10 mg at bedtime, Lasix 80 mg daily, levothyroxine 150 mcg daily, lorazepam 1 mg b.i.d., atorvastatin 40 mg daily, fluoxetine 20 mg every morning and Seroquel 200 mg daily. ALLERGIES: There are no known drug allergies. FAMILY HISTORY: Not obtainable at the present time. SOCIAL HISTORY: There is no documentation of tobacco use or current alcohol use. PHYSICAL EXAMINATION: GENERAL: male patient who is intubated and sedated. VITAL SIGNS: Blood pressure is 143/61 mmHg, heart rate is 55 beats per minute, respiration 18 per minute, temperature 37.7 degrees Celsius. CONSTITUTIONAL: The patient is lying in bed supine, appears comfortable, sedated, not in pain or distress. HEENT: Anicteric sclerae. NECK: Supple, no thyromegaly. CHEST: Noted for limited air entry bilaterally with scattered rales and rhonchi. HEART: Bradycardic, no murmurs or gallops. ABDOMEN: Distended, somewhat tense. No guarding. Sluggish bowel sounds. EXTREMITIES: Lower extremity exam is noted for bilateral lower extremity edema. No skin breaks or ulcerations. The patient has upper extremity edema as well. NEUROLOGIC: The patient is sedated and I am unable to conduct a full neurological examination at this point. PSYCH: The patient is sedated. I am unable to conduct a full psychiatric evaluation at this point. [address] [address] CONSULTATION Name: MAUREEN MARTINEZ Lala Room #: 250-[facility] IN M.R.#: [id number] Admission: 05/23/19 Attend Phys: Nishant Bains MD Discharge: Date of : 54 Report #: [id number] LABORATORY DATA: Blood glucose values have run consistently over 200 mg/dL over the past 48 hours, occasionally closer to 300 mg/dL. Sodium 145, potassium 3.6, chloride 111, CO2 of 23, anion gap 11, BUN 36, creatinine 1.5. It ran as high as 3.3 on the . Total bilirubin 0.5, direct bilirubin 0.3, calcium 8.4, phosphorus 2.9, magnesium 2.5, uric acid 9.5, alkaline phosphatase 156, ALT 31, total protein 5.6, albumin 1.7, EGFR 47. Ammonia 25. Lactic acid 2.3, total CPK 89, troponin 0.56, triglycerides 164. BNP 4011. Digoxin 0.2. INR 1.2. White blood count 7.9, hemoglobin 11.1, hematocrit 34.4 and platelets 179. TSH 0.219. Free T4 1.0 that was in November 2009. Hemoglobin A1c in 2016 was 7.3%. The patient's test is negative for influenza A and B as well as for COVID-19. ASSESSMENT AND PLAN: 1. Type 2 diabetes mellitus. The patient was seemingly maintained on metformin monotherapy as an outpatient. During this hospital stay, the patient has needed support with Humalog supplemental scale, high intensity and has received a total of 62 units over the past 24 hours in the form of Humalog insulin boluses, but with still sustained hyperglycemia. The patient is currently in Neupro tube feeds at a rate of 55 mL per hour with a good tolerability of these feeds. Based on these insulin needs and current intubated, sedated and tube feeding dependent state, I will convert the patient to a combination of Lantus insulin 24 units daily in addition to Humalog supplemental scale 6 units q. 6 hours to cover his tube feed intake in addition to coverage with Humalog supplemental scale low intensity. Blood glucose monitoring will continue q. 6 hours to enable further therapeutic changes as needed. Also, I will obtain a hemoglobin A1c to have a better feel for his level of control over the past few months. 2. Hypothyroidism. The patient is known to have hypothyroidism and is maintained on levothyroxine 150 mcg daily. His TSH is slightly suppressed, which could very well be due to sick euthyroid syndrome. I will obtain a free T4 level to better assess his current thyroid state. Also, I will resume treatment with his usual levothyroxine regimen of 150 mcg daily. 3. Hypertension. The patient's level of blood pressure control has been adequate, he is to continue with the current measures. 4. Hyperlipidemia. The patient is maintained on atorvastatin as an outpatient, this is to continue when he is clinically stable. 5. Respiratory failure with interstitial infiltrate and pneumonia. The patient is proved to be COVID negative. He is currently on intravenous glucocorticoid therapy, bronchodilators and is mechanically ventilated. The pulmonary team is following closely. I have reviewed the patient's clinical care notes, laboratory data, and other pertinent clinical information past and present for over [address] [place] [address] CONSULTATION Name: MAUREEN MARTINEZ Room #: [facility] IN M.R.#: [id number] Admission: 05/23/19 Attend Phys: Nishant Bains MD Discharge: Date of : 54 Report #: [id number] I certainly appreciate this consultation by Dr. Bush. <ELECTRONICALLY SIGNED> By: Analisa Machado MD 05/30/19 1021 1706 36 Analisa Machado MD /nt
--- NOTE | 2019-05-30 11:11 | NUR ---
chart review, discussed during los, cont iv diuretics. remains intubated, and T.F. weaning trial when MD orders. cm left message for pt brother, . pt lives at [facility]. no anticipated dc over weekend. will cont following as needed for dc needs.
--- NOTE | 2019-05-30 13:30 | NUR ---
SPOKE WITH DR GARCIA IN REGARDS TO INABILITY TO WEAN DUE TO EDEMA, STATED THAT WE WERE TO CONTINUE DIURSIS PLANNED. CONTINUE TO SUCTION LARGE AMT OF CREAMY FROTHY BEIGE SPUTUM FROM LUNGS. SEDATION GIVEN FOR COMFORT AND DRESSING CHANGES.
--- NOTE | 2019-05-30 19:42 | NUR ---
PATIENT PROGESSING SLOWLY, CONTINUES TO FOLLOW SIMPLE COMMANDS. SEDATION AND FENTANYL FOR COMFORT. VSS. HYDRALYZINE GIVEN THIS AM FOR ELEVATED BP, BP IMPROVED WITH GIVING ANTI HYPERTENSIVE VIA NGT AND SEDATION. RT THIGH LESS REDDENED THIS PM. VENT SETTING UNCHANGED AND O2 SAT IN THE MID 90'S. WILL CONTINUE TO MONITOR. TOLERATING TUBE FEEDING AND SCHMIDT PATENT. POC EXPLANINED TO PATIENT AND REASSURANCE GIVEN.
[2019-05-31] VITALS (23 sets, daily range): BP systolic 118–187; BP diastolic 55–79
--- NOTE | 2019-05-31 04:00 | NUR ---
Pt profoundly weak. Unable to lift arms off bed at this time. Pt follows commands and is not impulsive at this time. Will attempt to remove bilateral soft wrist restraints at this time.
[2019-05-31 05:21] LABS: ABSOLUTE NEUTROPHILS 8.7 thou/uL (1.4-8.2); BASOPHILS 0.1 % (0.0-2.0); HEMATOCRIT 33.6 % (42.0-52.0); MCH 28.9 pg (26.0-34.0); MCHC 32.8 g/dL (28.0-37.0); MCV 88.2 fL (80.0-100.0); PLATELET COUNT 208 thou/uL (150-400); POLYS 83.9 % (36.0-66.0); RBC 3.81 mil/uL (4.50-6.00); RDW 16.2 % (10.5-14.5); WBC 10.4 thou/uL (4.0-11.0)
[2019-05-31 05:41] LABS: ALBUMIN 2.1 g/dL (3.4-5.0); CALCIUM 8.3 mg/dL (8.5-10.1); CREATININE 1.4 mg/dL (0.7-1.3); PHOSPHORUS 2.8 mg/dL (2.5-4.9); TOTAL BILIRUBIN 0.6 mg/dL (<0.1-1.0); TOTAL PROTEIN 5.8 g/dL (6.4-8.2)
[2019-05-31 05:43] LABS: BE(vivo) 0.1 mmol/L (-2 to +3); HCO3 24.4 mmol/L (22.0-26.0); PCO2 38.3 mmHg (35.0-45.0); pH 7.422 (7.360-7.450); sO2 98.3 % (92.0-98.0)
--- NOTE | 2019-05-31 06:00 | NUR ---
Restraints remain off. Pt not attempting to pull at ETT or monitoring equipment. Will leave off for now.
--- NOTE | 2019-05-31 07:00 | NUR ---
Dr. Durbin on rounds. Orders rec'd for low potassium 3.0. Report to oncoming shift.
--- NOTE | 2019-05-31 18:51 | NUR ---
ASSUMED CARE OF PATIENT AT 0700. VS STABLE, WITH THE EXCEPTION OF ELEVATED BP, ALLEVIATED WITH HYDRALAZINE PRN. . ASSESSMENTS PERFORMED. PATIENT IS A&O TO PESON AND SITUATION. PATIENT IS SB ON THE MONITOR. ACCUCHECKS WITH SCHEDULED INSULIN Q 6 HOURS. PATENT SCHMIDT. PATENT NG TUBE WITH NEPHRO RUNNING AT 55. GTT: FENTANYL. LORAZEPAM PRN FOR AGGITATION. NO RETRAINTS IN PLACE. DSG CHANGE WITH DR. RICHMOND. VENT WITH ET TUBE IN PLACE AT 27/LIP, SUCTIONING WITH RT. PATIENT TO CONTINUE WITH POC.
[2019-06-01] VITALS (25 sets, daily range): BP systolic 135–180; BP diastolic 48–71
[2019-06-01 05:39] LABS: ALBUMIN 2.8 g/dL (3.4-5.0); CALCIUM 8.6 mg/dL (8.5-10.1); CREATININE 1.4 mg/dL (0.7-1.3); PHOSPHORUS 2.7 mg/dL (2.5-4.9); POTASSIUM 3.4 mmol/L (3.5-5.1)
--- NOTE | 2019-06-01 08:05 | NUR ---
PATIENT ALERT TO SELF, OPENS EYES SPONTANEOUSLY, RESPONDS BY NODDING HEAD TO YES/NO QUESTIONS. DESIZING MACHINE OFFBEARER EQUAL AND WEAK, NO COMPLAINTS OF PAIN. PATIENT ON 40% FIO2, 02 SAT REMAINED ABOVE 90%. TOLERATING TUBE FEEDING WITH MINIMAL RESIDUAL, PROTIEN AND WATER FLUSHES Q6H. SCHMIDT PATENT WITH GREATHER THAN 30ML/HR, IV LASIX GIVEN. BILATERAL LEG DRESSINGS INTACT. PLAN DISCUSSED WITH FAMILY. NO SIGN OF ACUTE DISTRESS NOTED AT THIS TIME. WILL CONTINUE TO MONITOR.
--- NOTE | 2019-06-01 12:00 | NUR ---
FENTANYL WEANED AND PATIENT REPOSITONED FOR CPAP TRAIL BUT ONLY LASTED LESS THAN 5 MINUTES AND HAD TO BE PLACED BACK ON VENT. PATIENT CLAMPING MOUTH SHUT WHEN ATTEMPTING TO DO ORAL CARE. TOLERATING TUBE FEEDING. URINE OUTPUT GREATER THAN 1 L AFTER AM LASIX. MONITOR STABLE
--- NOTE | 2019-06-01 16:00 | NUR ---
FENTANYL DOWN TO 10 MCG/HR, CPAP TRIAL ATTEMPTED AFTER RESP TREATMENT AND LASIX GIVEN. KCL INFUSING AND PO POTASSIUM GIVEN FOR SERUM K OF 2.9, DR ENGLADN NOTIFIED AT 1412 AND ORDERS RECEIVED.
--- NOTE | 2019-06-01 19:00 | NUR ---
PRECEDEX BOLUS GIVEN AND DRIP STARTED FOR SEDATION, HYDROMORPHONE DRIP STARTED FOR SEDATION CONTINUE TO SUCTION COPIOUS AMT OF THIN CREAMY BEIGE SPUTUM PER ETT AND ORALLY. MONITOR SB, PRECEDEX INCREASED FOR ELEVATED BP. TOLERATING TUBE FEEDINGS AND WATER FLUSHES. DIURESIS OF GREATER THAN 1 LITER. PATIENT SLOWLY PROGRESSING.
--- NOTE | 2019-06-01 20:30 | NUR ---
BROTHER SARAH UPDATED TO PATIENT STATUS AND QUESTIONS ANSWERED.
[2019-06-02] VITALS (24 sets, daily range): BP systolic 146–198; BP diastolic 56–79
[2019-06-02 05:13] LABS: ALBUMIN 3.1 g/dL (3.4-5.0); CALCIUM 8.6 mg/dL (8.5-10.1); CREATININE 1.3 mg/dL (0.7-1.3); POTASSIUM 3.5 mmol/L (3.5-5.1)
--- NOTE | 2019-06-02 05:50 | NUR ---
Pt became agitiated and being combative when wean down precedex gtt. Unable to re-orienting him. High risk for self exubation, will place him back on restraint and will notify pcp mobile solutions architect.
--- NOTE | 2019-06-02 06:20 | NUR ---
Pt remains hypertensive this am, gave Norvasc am dose early. Will admin hydralazine PRN dose once it available.
--- NOTE | 2019-06-02 13:28 | NUR ---
chart review. discussed during los, possible weaning trails next few days. cm called and spoke with shirley jennings brother and shirley via phone call speaker. " hold on i putting on to"/shirley. cm checking in on how family doing.
--- NOTE | 2019-06-02 16:36 | NUR ---
FAXED CLINICAL UPDATE TO [facility] SPOKE WITH HILARY IN ADM SHE RECEIVED UPDATE AND WILL FOLLOW.
--- NOTE | 2019-06-02 19:20 | NUR ---
Pt breathing in mid 30's; switched back to AC ventilation from CPAP per RT.
--- NOTE | 2019-06-02 19:26 | NUR ---
OPENS EYES AND SQUEEZES HAND WHEN ADDRESSED. SB PER TELE WITH 1ST DEGREE AV BLOCK. ANASARCA. CELLULITIS OF BOTH LEGS. MIHIR, RT, ABLE TO WEAN HIM OFF VENTILATOR AT 1300 AFTER DILAUDID DRIP STOPPED SO HE WOULD BE MORE RESPONSIVE. SOFT BILAT. WRIST RESTRAINTS LOOSENED DURING TURNS. DIURESING. TF AT GOAL. SUCTIONED PRN.
[2019-06-03] VITALS (25 sets, daily range): BP systolic 147–190; BP diastolic 55–78
[2019-06-03 05:24] LABS: ALBUMIN 3.2 g/dL (3.4-5.0); CALCIUM 8.5 mg/dL (8.5-10.1); CREATININE 1.4 mg/dL (0.7-1.3); POTASSIUM 3.1 mmol/L (3.5-5.1); TOTAL BILIRUBIN 0.7 mg/dL (<0.1-1.0); TOTAL PROTEIN 6.3 g/dL (6.4-8.2)
[2019-06-03 05:27] LABS: ABSOLUTE NEUTROPHILS 5.3 thou/uL (1.4-8.2); BASOPHILS 0.3 % (0.0-2.0); EOSINOPHILS 0.2 % (0.0-3.0); HEMATOCRIT 31.7 % (42.0-52.0); HEMOGLOBIN 10.3 gm/dL (14.0-18.0); LYMPHOCYTES 15.2 % (24.0-44.0); MCH 28.9 pg (26.0-34.0); MCHC 32.4 g/dL (28.0-37.0); MCV 89.2 fL (80.0-100.0); MONOCYTES 10.2 % (1.0-8.0); POLYS 74.1 % (36.0-66.0); RBC 3.55 mil/uL (4.50-6.00); RDW 16.5 % (10.5-14.5); WBC 7.2 thou/uL (4.0-11.0)
[2019-06-03 05:34] LABS: BE(vivo) 2.1 mmol/L (-2 to +3); HCO3 26.3 mmol/L (22.0-26.0); PCO2 39.1 mmHg (35.0-45.0); PO2 122.1 mmHg (80.0-100.0); pH 7.445 (7.360-7.450); sO2 98.5 % (92.0-98.0)
[2019-06-03 06:00] LABS: PLATELET COUNT 132 thou/uL (150-400)
--- NOTE | 2019-06-03 06:53 | NUR ---
Pt remains on vent, lightly sedated with Precedex at 0.5 mcg/kg/min. Pt responds to verbal stimuli and light touch, but does not follow commands. Soft wrist restraints remain bilaterally to prevent self-extubation. Pt does overbreathe vent, RR 19-24. Sat remains > 95% on FiO2 40%. Tolerating tube feeding well, no residuals this shift, abdomen remains soft. Passing flatus, no stool this shift. Pt hypertensive, SBP > 170, given Hydralazine x2. Urine output 950 cc this shift.
--- NOTE | 2019-06-03 08:22 | NUR ---
[id number]- cpap trial. Respiratory rate 37-45 bpm, Hr 58, O2 Sat >95%. Patient appear anxious. Switched back to AC.
--- NOTE | 2019-06-03 10:37 | NUR ---
Nutrition: Water flushes D/C'ed and no longer able to administer protein powder. Now that renal function improved feel Nepro formula no longer needed. REC change tube feed formula to Vital AF at 75 mL/hr goal rate if pt able to handle this volume. Will meet 84-100% of needs.
--- NOTE | 2019-06-03 18:42 | NUR ---
PATIENT NOT PROGRESSING TOWARDS PLAN OF CARE EVIDENCE BY NOT TOLERATING CPAP TRIAL ON THE VENT TODAY. PRN MEDICATION GIVEN FOR BP GREATER THAN 160 SYSTOLIC WITH NO IMPROVEMENT. WILL CONTACT .
--- NOTE | 2019-06-03 19:03 | NUR ---
PATIENT HAS CONTINUED TO BE HYPERTENSIVE TODAY WITH SBP 160-170S. PRN MEDICATIONS GIVEN WITH NO IMPROVEMENT. DR. WEATHERS NOTIFIED, NO NEW ORDERS AT THIS TIME. WILL REPORT OFF TO MORTAR CARRIER RN.
[2019-06-04] VITALS (24 sets, daily range): BP systolic 150–188; BP diastolic 61–78
[2019-06-04 04:36] LABS: ALBUMIN 3.4 g/dL (3.4-5.0); CALCIUM 8.1 mg/dL (8.5-10.1); CREATININE 1.3 mg/dL (0.7-1.3); POTASSIUM 3.7 mmol/L (3.5-5.1)
--- NOTE | 2019-06-04 06:00 | NUR ---
PT INTUBATED AND ON VENT. UPON INITIAL ASSESSMENT, PT VERY AWAKE AND FRUSTRATED, PULLING AT WRIST RESTRAINTS. PRIOR SHIFT RN SAID THEY WERE UNABLE TO INCREASE PRECEDEX GTT D/T BRADYCARDIA. PT ALSO HYPERTENSIVE AT THE TIME. PRECEDEX SWITCHED TO VERSED GTT. NO IMPROVEMENT WITH BRADYCARDIA, BUT PT MUCH MORE CALM AND SBP LOWERED TO 150s. POTASSIUM REPLACED PER PROTOCOL. PT IS PROGRESSING. WILL CONTINUE TO MONITOR.
--- NOTE | 2019-06-04 08:30 | NUR ---
[facility] AT 0700 TODAY. PATIENT ON CPAP TRIAL AFTER AM RESP TREATMENT, RESP RATE IN THE 20'S BP ELEVATED OFF SEDATION. MONITOR SINUS MELVINA WITH 1ST DEGREE AV BLOCK. ASSESSMENT COMPLETED. MORE ALERT AND RESPONSIVE TODAY. WILL CONTINUE TO MONITOR.
--- NOTE | 2019-06-04 12:30 | NUR ---
SPOKE WITH HIS BROTHER SARAH AT 0900 TODAY, UPDATED TO PATIENT'S STATUS AND PATIENT SMILING WHEN TOLD THAT HIS BROTHER SARAH WAS CALLING ABOUT HIM. AT 1015 PATIENT BECAME TACHYNEPIC WITH RESP RATE IN THE 40'S. PLACED BACK ON VENT BY RT. BP IN THE 150'S AFTER HYDRALAZINE GIVEN. SEDATION INCREACED AND PAIN MED GIVEN AND PATIENT IS SLEEPING. WILL CONTINUE TO MONITOR.
--- NOTE | 2019-06-04 16:56 | NUR ---
SW reviewed chart and spoke with attending physician. Pt remains on the ventilator. Vent weaning trials earlier today. SW updated Centers liaison. habitat conservation planner to fax updaes to [facility] for review. BIBIANA is following to assist as needed with discharge planning.
--- NOTE | 2019-06-04 19:36 | NUR ---
PATIENT POGRESSING SLOWLY TOWARDS OUTCOME GOALS EVIDENT BY, TOLERATED 2 HR CPAP TRIAL, REMAINS EDEMATOUS WITH LARGE AMT OF ETT SECRETIONS, COOPERATIVE WITH ORAL CARE AND MORE RESPONSIVE TODAY. TOLERATING TUBE FEEDINGS NO STOOLS ACTIVE BOWEL SOUNDS. URINE OUTPUT LESS THAN 2 LITERS, PHARMACY CHANGING KDUR TO POWDER FORM FOR TUBE FEEDINGS FOR K OF 3.1. HYDRALAZINE GIVEN FOR ELEVATED BP, DR. CARTER HERE AND INFORMED OF BP. VERSED REMAINS AT 2 MG/HR. PATIENT UPDATED TO THE POC AND REASSURANCE GIVEN.
[2019-06-05] VITALS (24 sets, daily range): BP systolic 140–179; BP diastolic 55–74
--- NOTE | 2019-06-05 04:36 | NUR ---
SEDATED WITH 2-3MG OF VERSED DURING THE NIGHT. ON SEDATION VACATION AT 1930. PT ABLE TO FOLLOW COMMANDS. SQUEEZE HANDS ALTHOUGH WEAK. NODED YES/NO TO QUESTIONS ASKED. DURING SEDATION VITAL SIGNS STABLE. HR IN THE 50S, RESPIRATIONS IN THE UPPER 10s. AFEBRILE DURING THE NIGHT. MEDICATED FOR PAIN RELIEF. BP ELEVATED, HYDRALAZINE GIVEN X1. NOTED LOWERING OF BP AFTER ADMINISTRATION. TOLERATING VENT SETTINGS. TOLERATING TF, BM DURING THE SHIFT. WOUND CARE PERFORMED ON BILATERAL LOWER EXTREMITIES. FREQUENT TURNS AND ORAL CARE. WILL CONTINUE TO MONITOR PT.
[2019-06-05 06:02] LABS: HEMATOCRIT 28.6 % (42.0-52.0); HEMOGLOBIN 9.4 gm/dL (14.0-18.0); MCH 29.1 pg (26.0-34.0); MCHC 32.8 g/dL (28.0-37.0); MCV 88.6 fL (80.0-100.0); RBC 3.23 mil/uL (4.50-6.00); RDW 16.6 % (10.5-14.5); WBC 8.1 thou/uL (4.0-11.0)
[2019-06-05 06:19] LABS: ALBUMIN 3.3 g/dL (3.4-5.0); CALCIUM 8.2 mg/dL (8.5-10.1); CREATININE 1.2 mg/dL (0.7-1.3); PHOSPHORUS 2.7 mg/dL (2.5-4.9); POTASSIUM 3.5 mmol/L (3.5-5.1)
--- NOTE | 2019-06-05 09:00 | NUR ---
ASSUMED CARE AT 0700 THIS AM. ASSESSMENT COMPLETED. VERSED TO 1 MG/HR. ON CPAP TRIAL AND TOLERATION WITH RESP RATE IN THE UPPER 20'S AND LOWER 30'S. REASSURANCE GIVEN. TOLERATING TUBE FEEDING AND DIURESING AFTER LASIX THIS AM. WILL CONTINUE TO MONITOR.
[2019-06-05 09:47] LABS: BE(vivo) 4.1 mmol/L (-2 to +3); HCO3 28.9 mmol/L (22.0-26.0); PCO2 44.4 mmHg (35.0-45.0); PO2 139.1 mmHg (80.0-100.0); pH 7.431 (7.360-7.450); sO2 98.8 % (92.0-98.0)
--- NOTE | 2019-06-05 11:00 | NUR ---
SPOKE WITH PATIENT BROTHER SARAH AND (DPOA) UPDATED TO PATIENT'S STATUS. PATIENT INFORMED ALERT AND ORIENTED. PLACED BACK ON VENT AFTER 2 HOURS ON CPAP, ATEMPTED TO CALL ABG RESULTS TO DR PORTER, MESSAGE LEFT
--- NOTE | 2019-06-05 14:47 | NUR ---
BIBIANA reviewed chart and spoke with attending physician. Pt remains on ventilator. Weaning trials started. Pt on IV lasix and IV abx. SW left voice message for pt's brother, Franky, to provide update. [facility] is being kept updated on pt's condition. BIBIANA is following to assist as needed with discharge planning.
--- NOTE | 2019-06-05 16:48 | NUR ---
PATIENT RESTING QUIETLY, VERSED INCREASE TO 2MG/HR AFTER CPAP TRIAL, C/O ABD DISCOMFORT FENTANYL GIVEN WITH SOME RELIEF, BP IMPROVED. HYDRALAZINE GIVEN EARLIER FOR ELEVATED BP, TOLERATING TUBE FEEDINGS, URINE OUTPUT ADEQUATE AT GREATER THAN 50ML/HR. SERUM POTASSIUM 3.2 AND REPLACED PER PROTOCOL. WILL CONTINUE TO MONITOR.
--- NOTE | 2019-06-05 19:21 | NUR ---
PATIENT PROGRESSING TOWARDS OUTCOME GOALS EVIVENT BY TOLERATING WEANING TRIALS, VSS. MONITOR UNCHANGED. TOLERATING TUBE FEEDING AND SCHMIDT PATENT. VERSED REMAINS AT 2MG/HR.
[2019-06-06] VITALS (13 sets, daily range): BP systolic 130–174; BP diastolic 55–77
--- NOTE | 2019-06-06 05:24 | NUR ---
SEDATED ON 3MG VERSED DURING THE NIGHT. PT ABLE TO FOLLOW COMMANDS. NODS YES OR NO. AFEBRILE. MEDICATED FOR PAIN RELIEF. VSS. TOLERATING VENT SETTING. TOLERATING TUBEFEEDINGS. WOUND CARE PERFORMED. PT SLOWLY PROGRESSING TOWARDS GOALS WILL CONTINUE TO MONITOR.
[2019-06-06 06:36] LABS: ALBUMIN 3.3 g/dL (3.4-5.0); CALCIUM 8.3 mg/dL (8.5-10.1); CREATININE 1.2 mg/dL (0.7-1.3); PHOSPHORUS 2.6 mg/dL (2.5-4.9); POTASSIUM 3.9 mmol/L (3.5-5.1)
[2019-06-06 10:01] LABS: BE(vivo) 5.8 mmol/L (-2 to +3); HCO3 30.4 mmol/L (22.0-26.0); PCO2 44.3 mmHg (35.0-45.0); PO2 134.8 mmHg (80.0-100.0); pH 7.454 (7.360-7.450); sO2 98.8 % (92.0-98.0)
--- NOTE | 2019-06-06 13:35 | NUR ---
ON-GOING ASSESSMENT: CM REVIEWED CHART AND SPOKE WITH ATTENDING. PT REMAINS ON THE VENTILATOR WITH DAILY WEANING TRIALS. THEY ARE CONTINUING TO DIURESIS PATIENT AND HE HAS BEEN STARTED ON LASIX GTT. CM FAXED UPDATED CLINICAL BACK TO [facility] TO UPDATE THEM. CM ALSO SPOKE WITH PATIENTS BROTHER RAMESH AND HIS TO UPDATE. CM WILL CONTINUE TO FOLLOW TO ASSIST NEEDED.
--- NOTE | 2019-06-06 16:13 | NUR ---
PT SUDDENLY DESATED, 85%. RR 35 FROTHY SECRETIONS. PLACED ON 100% F102. STAT CHEST XRAY ORDERED. DR. PORTER NOTIFIED. WILL ALSO DO ABGS. FENTANYL 50MCG GIVEN.
[2019-06-06 16:24] LABS: BE(vivo) 7.3 mmol/L (-2 to +3); HCO3 31.4 mmol/L (22.0-26.0); PCO2 42.7 mmHg (35.0-45.0); PO2 115.9 mmHg (80.0-100.0); pH 7.485 (7.360-7.450); sO2 98.5 % (92.0-98.0)
--- NOTE | 2019-06-06 16:37 | NUR ---
DR. PORTER CALLED ABG AND CHEST XRAY RESULTS. PT BACK TO BASELINE. NO NEW ORDERS. WILL WEAN DOWN F102.
[2019-06-06 18:48] LABS: MAGNESIUM 1.8 mg/dL (1.8-2.4)
[2019-06-06 18:50] LABS: POTASSIUM 2.7 mmol/L (3.5-5.1)
--- NOTE | 2019-06-06 19:42 | NUR ---
PT NOT PROGRESSING TOWARDS GOALS. CAP TODAY 90 MINUTES. TOLORATED WELL BUT THEN BECAME TACHYCAPNEIC. EPISODE OF FLASH PULM EDEMA TODAY. DR. PORTER AND MARCO A AWARE. DIURESING. REPLACING K.
[2019-06-07] VITALS (26 sets, daily range): BP systolic 132–181; BP diastolic 53–77
[2019-06-07 04:34] LABS: BE(vivo) 12.6 mmol/L (-2 to +3); HCO3 35.9 mmol/L (22.0-26.0); PCO2 40.8 mmHg (35.0-45.0); PO2 107.1 mmHg (80.0-100.0); pH 7.562 (7.360-7.450); sO2 98.4 % (92.0-98.0)
[2019-06-07 05:11] LABS: ABSOLUTE NEUTROPHILS 8.6 thou/uL (1.4-8.2); BASOPHILS 0.3 % (0.0-2.0); HEMOGLOBIN 9.5 gm/dL (14.0-18.0); LYMPHOCYTES 12.2 % (24.0-44.0); MCH 28.7 pg (26.0-34.0); MCHC 32.7 g/dL (28.0-37.0); MCV 87.8 fL (80.0-100.0); MONOCYTES 10.6 % (1.0-8.0); PLATELET COUNT 162 thou/uL (150-400); POLYS 76.9 % (36.0-66.0); RDW 17.1 % (10.5-14.5); WBC 11.2 thou/uL (4.0-11.0)
[2019-06-07 05:30] LABS: CALCIUM 8.5 mg/dL (8.5-10.1); CREATININE 1.4 mg/dL (0.7-1.3); PHOSPHORUS 3.1 mg/dL (2.5-4.9); TOTAL BILIRUBIN 1.1 mg/dL (<0.1-1.0); TOTAL PROTEIN 6.3 g/dL (6.4-8.2)
[2019-06-07 05:31] LABS: POTASSIUM 2.8 mmol/L (3.5-5.1)
--- NOTE | 2019-06-07 07:48 | NUR ---
Assumed patient care at 1900. Patient remains on the ventilator and is sedated with Versed. Patient nods appropriately when asked questions. Patient noted to have an ulcer in the perianal area. Patient also noted to have 3+ weeping edema. Patient is on a continuous lasix drip and is receiving 4 bags of KCL per Dr. Fabian. VS remained stable and no acute events occured during this shift.
--- NOTE | 2019-06-07 08:47 | NUR ---
ASSUMED CARE AT 0700, ASSESSMENT AND VITAL SIGNS COMPLETED PER ICU PROTOCOL. DR. PORTER ORDERED CPAP TRIAL, INITIATED AT 0845. DR. STRICKLAND ROUNDED THIS MORNING.
[2019-06-08] VITALS (24 sets, daily range): BP systolic 143–168; BP diastolic 46–76
[2019-06-08 05:14] LABS: HEMOGLOBIN 9.8 gm/dL (14.0-18.0); MCH 28.9 pg (26.0-34.0); MCHC 32.7 g/dL (28.0-37.0); MCV 88.3 fL (80.0-100.0); RBC 3.4 mil/uL (4.50-6.00); RDW 16.9 % (10.5-14.5); WBC 8.3 thou/uL (4.0-11.0)
[2019-06-08 05:39] LABS: ALBUMIN 3.1 g/dL (3.4-5.0); BUN 52 mg/dL (7-18); CALCIUM 9.5 mg/dL (8.5-10.1); CHLORIDE 103 mmol/L (98-107); CREATININE 1.5 mg/dL (0.7-1.3); GLUCOSE 267 mg/dL (74-106); PHOSPHORUS 3.1 mg/dL (2.5-4.9); SODIUM 150 mmol/L (136-145)
[2019-06-08 05:42] LABS: POTASSIUM 2.4 mmol/L (3.5-5.1)
[2019-06-08 05:43] LABS: CO2 > 45 mmol/L (21-32)
--- NOTE | 2019-06-08 07:47 | NUR ---
Assumed patient care at 1900. Patient remains on the ventilator with Versed and Lasix infusing. Patient continues to have an average of 600-700 mLs of urine output per hour. No reduction in peripheral edema is noted as patient still has 3+ edema. Patient had a critical potassium of 2.[address] Fabian was notified. He stated to start giving 5 more bags of potassium and he will order the PO when he comes in. No acute events occurred during this shift and vital signs remained stable.
--- NOTE | 2019-06-08 17:25 | NUR ---
ON THE VENT AND LIGHTLY SSEDATED. VITALS STABLE, AWAKENS EASILY AND NODS TO Y/N QNS AND FOLLOWS SIMPLE COMMANDS. CPAP TRIAL EARLIER TODAY. TOLERATING TUBEFEEDING PER NG TUBE. K+ REPLACEMENT PER ACADEMIC SUPPORT ASSISTANT. ASSESSMENT DOCUMENTED. WILL CONTINUE WITH POC.
[2019-06-09] VITALS (23 sets, daily range): BP systolic 140–184; BP diastolic 56–77
[2019-06-09 05:51] LABS: HEMATOCRIT 29.5 % (42.0-52.0); HEMOGLOBIN 9.8 gm/dL (14.0-18.0); MCH 29.3 pg (26.0-34.0); MCHC 33.2 g/dL (28.0-37.0); MCV 88.4 fL (80.0-100.0); RBC 3.34 mil/uL (4.50-6.00); RDW 16.9 % (10.5-14.5); WBC 7.9 thou/uL (4.0-11.0)
[2019-06-09 06:17] LABS: ALBUMIN 2.9 g/dL (3.4-5.0); CALCIUM 9.2 mg/dL (8.5-10.1); CREATININE 1.3 mg/dL (0.7-1.3); MAGNESIUM 2.1 mg/dL (1.8-2.4); PHOSPHORUS 2.8 mg/dL (2.5-4.9); POTASSIUM 3.3 mmol/L (3.5-5.1)
--- NOTE | 2019-06-09 07:55 | NUR ---
Assumed patient care at 1900. Patient remains on the ventilator with Versed infusing. Patient nods appropriately when asked yes/no questions. Patient very weak when asked to move extremities. VS remained stable and no acute events occurred during this shift.
--- NOTE | 2019-06-09 13:42 | NUR ---
discussed during los, still intubated, possible start weaning trial. cm visited with brother shirley, and sister in-law eda concerned that [facility] will not be able to meet his needs because they change hands often and no one notified that he was going to the hospital. hopeful he can get on ventilator. thank you again for reaching out to us"/ shirley and eda. will cont following as needed for dc needs.
--- NOTE | 2019-06-09 19:33 | NUR ---
ASSUMED CARE OF PT AT 1800 TODAY. REPORT TAKEN FROM AM NURSE BEING FLEXED HOME. PT STABLE ON VENT, VSS WNL. BEDSIDE REPORT GIVEN TO PM NURSE PER HOSPITAL PROTOCAL.
[2019-06-10] VITALS (25 sets, daily range): BP systolic 99–193; BP diastolic 55–123
[2019-06-10 04:11] LABS: HEMATOCRIT 28.8 % (42.0-52.0); HEMOGLOBIN 9.5 gm/dL (14.0-18.0); MCH 29.4 pg (26.0-34.0); MCHC 33.1 g/dL (28.0-37.0); RBC 3.24 mil/uL (4.50-6.00); RDW 17.2 % (10.5-14.5); WBC 6.5 thou/uL (4.0-11.0)
[2019-06-10 04:23] LABS: ALBUMIN 2.7 g/dL (3.4-5.0); CALCIUM 9.1 mg/dL (8.5-10.1); CREATININE 1.3 mg/dL (0.7-1.3); PHOSPHORUS 3.6 mg/dL (2.5-4.9)
[2019-06-10 05:01] LABS: POTASSIUM 2.8 mmol/L (3.5-5.1)
--- NOTE | 2019-06-10 07:48 | NUR ---
Assessment and interventions documented. Pt rested well through out the night. Oxygen requirment increased from FIOS 40% to 70% MD notifed. New orders given. Pt alert able to make need know through gestures. No complaints. Patient stable however not progressing toward goal.
[2019-06-10 08:59] LABS: BE(vivo) 13.6 mmol/L (-2 to +3); HCO3 36.8 mmol/L (22.0-26.0); PCO2 40.9 mmHg (35.0-45.0); PO2 76.4 mmHg (80.0-100.0); pH 7.572 (7.360-7.450); sO2 96.8 % (92.0-98.0)
[2019-06-10 11:24] LABS: BE(vivo) 15.8 mmol/L (-2 to +3); HCO3 40.5 mmol/L (22.0-26.0); PO2 167.1 mmHg (80.0-100.0); pH 7.526 (7.360-7.450); sO2 99.3 % (92.0-98.0)
--- NOTE | 2019-06-10 15:30 | NUR ---
cm notified by bedside nurse radha that gen surgeon tried to reach pt brother to explain procedure for tomorrow and get consent and wanted sw to try and reach family. cm education that bedside nurse could have called pt family as well. cm called shirley brother [phone] spoke with him and gave him icu pod [phone] number to call and have nurse have surgeon call. sister in law and brother shirley stated no one has called here and we be home.
[2019-06-10 16:04] LABS: PROTIME 10.1 Seconds (9.3-11.4)
[2019-06-10 17:54] LABS: HCO3 39.2 mmol/L (22.0-26.0); PCO2 46.8 mmHg (35.0-45.0); PO2 81.9 mmHg (80.0-100.0); pH 7.541 (7.360-7.450)
--- NOTE | 2019-06-10 19:31 | NUR ---
RECEIVED PT'S CARE AROUND 0710; PT. ON BED; ON VENTILATOR; ALERT; DURING AM ASSESSMENT PT. FOLLOW COMMANDS; ABLE TO ANSWER YES/NO QUESTIONS; NO C/O PAIN; AM MEDICATIONS GIVEN; DR. RODRIGUEZ NOTIFIED ABOUT FIO2 INCREASE FROM 40% TO 70% BY NIGHT NURSE; ORDERS ON PLACED; NOTIFNGOZI ABOUT ABGs RESULTS; ORDERS RECEIVED; DECREASE TDV FROM 550 TO 450; RT NOTIFIED; DR. QUINN NOTIFIED ABOUT 02 INCREASE DURING ROUNDINGS; ORDERS ON PLACED; DR. ENGLAND UPDATED; DR. RODRIGUEZ NOTIFIED ABOUT SECOND ABGs RESULTS DURING ROUNDING; HAD SMEAR BM; AT 1625 PT'S CARE PASSED TO CHARGED NURSE; AROUND 1645 PT. SELF EXTUBATED; O2 SAT ABOVE 95%; DR. RODRIGUEZ & HOSPITALIST NOTIFIED; ORDERS RECEIVED; PER DR. MORALES REPORT NOT ABLE TO CONTACT DPOA; HEAD OF TALENT MANAGEMENT NOTIFIED; BROTHER UPDATED ABOUT 1830; [facility]; PAGED DR. MORALES; DR. SOSA CALLED BACK UPDATED ABOUT PT & PT'S BROTHER; REQUESTED PT'S BROTHER PHONE; [phone]; REQUESTED TO NOTIFIED PT'S BROTHER THAT MIGHT CONTACT HIM EITHER TONIGHT OR TOMORROW MORNING; PT'S BROTHER UPDATED; ASSESSMENT CHARGED; FOLLOWING POC; WILL PASS ON REPORT;
[2019-06-11] VITALS (28 sets, daily range): BP systolic 130–197; BP diastolic 59–85
[2019-06-11 06:21] LABS: ALBUMIN 2.7 g/dL (3.4-5.0); CREATININE 1.1 mg/dL (0.7-1.3); PHOSPHORUS 4.3 mg/dL (2.5-4.9)
--- NOTE | 2019-06-11 07:22 | NUR ---
PATIENTS CARES WERE ASSUMED AT SHIFT CHANGE. PATIENT WAS ASSESSED AND MEDS WERE PASSED. ALL PEG MEDS WERE CHANGD TO A DIFFERANT ROUTE. HOURLY ROUNDS WERE DONE. BED IN LOW AND LOCKED POSITION.
--- NOTE | 2019-06-11 11:07 | NUR ---
ASSESSMENTS AND INTERVENTIONS DOCCUMENTED. MEDICATIONS HELD BECUASE ROUTE IS NOT AVAILABLE. DR. ENGLAND AWARE, ORDERS FOR SPEECH THERAPY EVALUATION RECIEVED. PATIENT'S SODIUM IS ELEVATED TODAY, WAITING ON SPEECH TO EVAULATE.
--- NOTE | 2019-06-11 12:16 | NUR ---
ON-GOING ASSESSMENT: CM REVIEWED CHART AND SPOKE WITH ATTENDING. PLANS WERE FOR POSSIBLE TRACH AND PEG TODAY BUT PT SELF EXTUBATED LAST EVENING AND IS CURRENTLY ON THE BIPAP. PLANS FOR TRACH/PEG ARE ON HOLD PENDING PATIENTS PROGRESS. PT CURRENTLY REMAINS IN THE ICU AND ON IV ANBX. CM SPOKE WITH PATIENTS BROTHBRETT CHANDLER WHO REPORTS HE WAS UPDATED BY PATIENTS BEDSIDE RN. CM WILL CONTINUE TO FOLLOW TO ASSIST NEEDED.
--- NOTE | 2019-06-11 14:19 | NUR ---
WOUND CONSULT; THE POWDER CUTTING OPERATOR NOTIFIED ME OF A NEW WOUND. THE COCCYX WOUND IS UNSTAGEABLE WITH UNSTABLE ESCHAR. NOTIFIED DR ESTRELLA'S RN ENIO. RECOMMENDATIONS; ZGUARD UNTIL DR ESTRELLA ASSESSES THE PATIENT RN PRESENT/PICTURE TAKEN AND PLACED ON CHART
--- NOTE | 2019-06-11 15:10 | HC ---
[facility] [place] [address] CONSULTATION Name: MAUREEN MARTINEZ Room #: [facility]- ADM IN M.R.#: [id number] Admission: 05/23/19 Attend Phys: Nishant Bains MD Discharge: Date of : 54 Report #: [id number] THIS REPORT FOR: cc: Mauricio Guerra MD, Shyam MD Gates,Arley Ardon MD ~ CC: Nishant Guerra DATE OF SERVICE: 06/10/2019 CONSULTING PHYSICIAN: Dr. Paez. REASON FOR CONSULTATION: Tracheostomy and PEG tube placement. ASSESSMENT: 1. Respiratory failure. 2. Pneumonia. 3. Septic shock. 4. Morbid obesity. RECOMMENDATIONS: Thank you for the consultation. I will follow along. 1. At the time I saw the patient, he was intubated. He was placed on the schedule for a tracheostomy and PEG tube placement for the second case tomorrow at approximately 8:30 a.m. The nurse did call to notify me that the patient has in the interim self-extubating and there is a current plan to see how the patient does. Therefore, I will hold off if the patient remains not intubated. 2. We will continue to follow. 3. Several attempts of calling the family had been made; however, this has been unsuccessful so far. HISTORY OF PRESENT ILLNESS: The patient is a 68-year-old male in the ICU, intubated at the time of my initial visit with many medical comorbidities and severe respiratory failure requiring prolonged intubation. General Surgery was consulted for placement of tracheostomy and PEG tube placement. At the time of my interview, the patient was alert. I did discuss plans with him and he did seem okay with it and he did seem to understand what I was saying; however, he is intubated and therefore, most of the information was obtained from the chart. PAST MEDICAL HISTORY: 1. Schizoaffective disorder. 2. Bipolar disorder. 3. Intellectual disability. [facility] [address] [place] [address] CONSULTATION Name: MAUREEN MARTINEZ Room #: [facility] IN ..#: [id number] Admission: 05/23/19 Attend Phys: Nishant Bains MD Discharge: Date of : 54 Report #: [id number] 4. Seizure disorder. 5. Gout. 6. Dysphagia. 7. GERD. 8. Chronic kidney disease. 9. Osteoporosis. 10. Peripheral vascular disease. 11. Paroxysmal atrial fibrillation. 12. Morbid obesity. PAST SURGICAL HISTORY: Unknown. ALLERGIES: No known drug allergies. FAMILY HISTORY: Unobtainable. SOCIAL HISTORY: Unobtainable. REVIEW OF SYSTEMS: Unobtainable. PHYSICAL EXAMINATION: VITAL SIGNS: Temperature 36.9, pulse 51, respiratory rate 18, blood pressure 149/73, and pulse ox 94%. GENERAL: In no apparent distress, intubated, alert. HEENT: PERRLA, EOMI, MMM, NCAT NECK: Supple. No LAD. Surgical incision noted on the neck in the midline. CARDIOVASCULAR: Regular rhythm and rate. Hemodynamically stable. Normal capillary refill. Regular rhythm and rate. Hemodynamically stable. Normal capillary refill. PULMONARY: Nonlabored. Clear to auscultation bilaterally. ABDOMEN: Soft, morbidly obese, no surgical incisions appreciated. No hernias appreciated. EXTREMITIES: Calves soft, nontender, no edema. SKIN: No rashes or bruises. PSYCHIATRIC: Normal mood and affect. NEUROLOGICAL: Grossly intact. CN II-XII grossly intact. MUSCULOSKELETAL: 5/5 strength in upper extremities and lower extremities bilaterally. LYMPHATICS: No cervical, inguinal, or supraclavicular lymphadenopathy LABORATORY DATA: WBC 6.5, hemoglobin 9.5, hematocrit 28.8, and platelets 174. Sodium is 148, potassium 2.8, and creatinine 1.3. <ELECTRONICALLY SIGNED> By: Arley Paez MD 06/11/19 1510 1804 04 Arley Paez MD /nt
--- NOTE | 2019-06-11 15:51 | NUR ---
ASSESSMENTS AND INTERVENTIONS DOCCMENTED. PATIENT HAVING SPEECH EVALUATION TODAY. PATIENT STILL HAVING ISSUES CLEARING HIS OWN SECRETIONS. UNABLE TO PASS SWALLOW EVAL. JENNIFER UNGER RECCOMENDING TRACH. PATIENT NODDING IN AGREEANCE. RN SPEAKING WITH DR. MORALES IN REGARDS TO TRACH PLACEMENT. DR MORALES WANTING PATIENT TO BE REINTUBATED PRIOR TO SURGERY. DR. MORALES SPOKE WITH JENNIFER. DR. RODRIGUEZ PAGED. ORDERS RECIEVED TO CONSULT ANESTHESIA FOR INTUBATION. PATIENT REMIANS ON BIPAP AT 40% AT THIS TIME. FAMILY UPDATED ABOUT CURRENT STATUS. WILL ATTEPMT TO CALL FAMILY TO OBTAIN CONSENT.
[2019-06-11 16:37] LABS: BE(vivo) 12.9 mmol/L (-2 to +3); HCO3 36.9 mmol/L (22.0-26.0); PCO2 44.7 mmHg (35.0-45.0); PO2 87.4 mmHg (80.0-100.0); pH 7.534 (7.360-7.450); sO2 97.4 % (92.0-98.0)
[2019-06-11 19:12] LABS: BE(vivo) 7.9 mmol/L (-2 to +3); PCO2 32.9 mmHg (35.0-45.0); PO2 72.6 mmHg (80.0-100.0); pH 7.578 (7.360-7.450); sO2 96.6 % (92.0-98.0)
--- NOTE | 2019-06-11 22:38 | NUR ---
SPOKE TO BROTHER AT 1900 SHIFT CHANGE WITH DAY RN, RECIEVED TELEPHONE CONSENT FOR TRACHEOSTOMY AND PEG TUBE. CONSENT SIGNED AND PLACED IN CHART.
[2019-06-12] VITALS (43 sets, daily range): BP systolic 104–204; BP diastolic 53–97
[2019-06-12 05:19] LABS: ALBUMIN 2.5 g/dL (3.4-5.0); CALCIUM 8.7 mg/dL (8.5-10.1); CREATININE 1.1 mg/dL (0.7-1.3); PHOSPHORUS 4.7 mg/dL (2.5-4.9); POTASSIUM 3.2 mmol/L (3.5-5.1)
[2019-06-12 05:44] LABS: HEMATOCRIT 27.8 % (42.0-52.0); MCH 29.5 pg (26.0-34.0); MCHC 32.4 g/dL (28.0-37.0); MCV 90.9 fL (80.0-100.0); RBC 3.05 mil/uL (4.50-6.00); RDW 18.3 % (10.5-14.5); WBC 4.4 thou/uL (4.0-11.0)
[2019-06-12 06:06] LABS: BE(vivo) 10.7 mmol/L (-2 to +3); HCO3 33.8 mmol/L (22.0-26.0); PCO2 39.3 mmHg (35.0-45.0); PO2 116.6 mmHg (80.0-100.0); pH 7.553 (7.360-7.450); sO2 98.7 % (92.0-98.0)
--- NOTE | 2019-06-12 06:30 | NUR ---
PATIENT ON LIGHT SEDATION, ABLE TO FOLLOW COMMANDS, NODS HEAD TO YES/NO QUESTIONS. VENTILATOR TUBE ADVANCED TO 27 CM AT 1900 PER RESPIRATORY. CURRENTLY 40% FIO2, O2 SAT REMAINED ABOVE 90%. UNABLE TO RECIEVE RESPIRATORY CULTURE OVER NIGHT. SINUS BRADYCARDIA ON DIE MOUNTER. SCHMIDT PATENT AND DRAINING. OG TUBE TO LOW INTERMITTENT SUCTION. NO SIGN OF ACUTE DISTRESS NOTED AT THIS TIME. WILL CONTINUE TO MONITOR.
--- NOTE | 2019-06-12 07:53 | NUR ---
0753: PATIENT LEAVING UNIT FOR TRACHEOSTOMY AND PEG TUBE PLACEMENT.
--- NOTE | 2019-06-12 11:34 | O ---
[address] [address] OPERATIVE REPORT Name: MAUREEN MARTINEZ Room #: 250-P ADM IN M.R.#: [id number] Admission: 05/23/19 Attend Phys: Nishant Bains MD Discharge: Date of : 54 Report #: [id number] THIS REPORT FOR: cc: Mauricio Guerra MD, Shyam MD Gates,Arley Ardon MD ~ CC: Nishant Guerra DATE OF SERVICE: 06/12/2019 PROCEDURE PERFORMED: 1. Placement of tracheostomy tube. 2. EGD with placement of percutaneous endoscopic gastrostomy feeding tube. PREOPERATIVE DIAGNOSES: 1. Respiratory failure. 2. Hospital-acquired pneumonia. 3. Heart failure. 4. Septic shock. 5. Morbid obesity. 6. Acute on chronic kidney disease stage 3. 7. Hyponatremia. 8. Hypokalemia. 9. Elevated troponin. 10. History of atrial fibrillation. 11. Bradycardia. 12. Hyperlipidemia. 13. Seizure disorder. 14. Diabetes mellitus, uncontrolled. 15. Hypothyroidism. 16. Severe protein-calorie malnutrition. POSTOPERATIVE DIAGNOSIS: 1. Severe gastritis. SURGEON: Dr. Paez. GRINDING OPERATOR: None. ANESTHESIA: General. ESTIMATED BLOOD LOSS: Less than 5 mL. URINE OUTPUT: Not measured. [address] [address] OPERATIVE REPORT Name: MAUREEN MARTINEZ Room #: 250-P [facility] IN [place]#: [id number] Admission: 05/23/19 Attend Phys: Nishant Bains MD Discharge: Date of : 54 Report #: [id number] COMPLICATIONS: None. FINDINGS: 1. Tracheostomy findings: Normal tracheal anatomy. No unexpected findings. 2. EGD findings: Z-line and diaphragm both at 42 cm. Normal Z-line. Normal esophagus. The patient had a severe linear gastritis throughout the body and antrum of the stomach. The patient had normal duodenum. Normal J maneuver. No other gross abnormalities appreciated. TUBES: 1. An 8-Gabonese Shiley tracheostomy tube. 2. A 24-Gabonese PEG tube. INDICATIONS FOR PROCEDURE: The patient is a 68-year-old gentleman with severe respiratory failure and many comorbidities, tracheostomy and feeding tube was requested by the Critical Care team. The procedures were discussed with the patient's brother and his . The risks, benefits and alternatives were discussed. The risks discussed included but were not limited to the risk of bleeding, infection, severe respiratory failure, severe hypoxia, neurologic, cardiac and pulmonary type complications including , risk of breathing, risk of tracheal tube or PEG tube dislodgement requiring emergency procedures and . They had the opportunity to ask questions. All questions were answered to the best of my ability. At the end of the discussion, they wished to proceed with the procedures. DESCRIPTION OF PROCEDURE: After informed consent was obtained as above, the patient was taken to the operating room and placed in the supine position. General anesthesia was induced. Preprocedure antibiotics were administered. His anterior neck was prepped and draped in the usual sterile fashion and timeout was performed. A 4 cm incision was made in the neck approximately 1.5 cm cephalad to the collar bones. The dissection was carried down to the strap muscle using electrocautery. The strap muscles were divided in the median raphe. The trachea was identified and cleared off using a mixture of electrocautery and blunt dissection. The cricoid cartilage was appreciated. The patient was at 100% FiO2 and very stable. The endotracheal balloon was let down, an U type incision was made on the trachea and ET tube was withdrawn under direct visualization. The 8-Gabonese Shiley ET tube was advanced into the trachea without any difficulty, was connected to the ventilator. We had adequate end-tidal CO2 adequate tidal volume and adequate oxygenation. The neck space was hemostatic. The skin incision was closed using nylon sutures in an interrupted fashion. The tracheal tube was secured to the skin using nylon sutures in an interrupted fashion. The patient tolerated this portion of the procedure very well. He desaturated over the course of approximately 30 seconds, but upon connecting to the ventilator, he responded immediately, returned to 100% less than a minute. [address] [address] OPERATIVE REPORT Name: MICHELLEMAUREEN Reeves Room #: [facility] IN M.R.#: [id number] Admission: 05/23/19 Attend Phys: Nishant Bains MD Discharge: Date of : 54 Report #: [id number] Next, the EGD was advanced into the patient's mouth, down into the stomach and third portion of the duodenum under direct visualization. This was done without any difficulties, findings as above. The light reflex was then identified on the patient's anterior abdominal wall. Finger indention test did confirm its position. The air leak test using a seeker needle was performed and sooner the needle was visualized coming into the gastric lumen, there was air withdrawn into the syringe, hopefully indicating that there was no other viscus structure between the stomach and the abdominal wall. The Cook needle and sheath was inserted under direct visualization into the gastric lumen. Guidewire was inserted. It was grasped from above with a snare, pulled out the patient's mouth, was connected to 24-Gabonese PEG tube, pulled through the patient's mouth into the stomach and out the anterior abdominal wall using traction, the PEG tube was at approximately 3.5 cm at the end of the procedure, hemostasis was present. It was not too tight. The air was evacuated out of the stomach and scope was removed, while visualizing the circumference of the esophagus under direct visualization. The PEG tube was secured using a bolster. This marked the conclusion of procedure. The patient tolerated the procedure well. There were no adverse events throughout the course of procedure. <ELECTRONICALLY SIGNED> By: Arley Paez MD 06/12/19 1134 [id number] [id number] Arley Paez MD /nt
--- NOTE | 2019-06-12 11:40 | NUR ---
discussed during los has trach and peg, working towards dc. cm called pt brother shirley, education on [facility] and possible being ready for do sunday or sunday. education. on [facility], [facility] [place] [facility] [place]. per brother requested referral to be sent to [facility] and have liaison rich call [facility]. information passed on to bedside nurse. will cont following as needed for dc needs.
--- NOTE | 2019-06-12 14:40 | NUR ---
FAXED REFERRAL TO [facility] SPOKE WITH LILLY IN ADM SHE RECEIVED REFERRAL AND WILL REVIEW. DP TO FOLLOW.
[2019-06-13] VITALS (23 sets, daily range): BP systolic 142–190; BP diastolic 55–86
[2019-06-13 05:36] LABS: HCO3 35.2 mmol/L (22.0-26.0); PCO2 44.9 mmHg (35.0-45.0); PO2 131.5 mmHg (80.0-100.0); pH 7.512 (7.360-7.450); sO2 98.8 % (92.0-98.0)
[2019-06-13 05:58] LABS: ALBUMIN 2.5 g/dL (3.4-5.0); CALCIUM 8.5 mg/dL (8.5-10.1); PHOSPHORUS 3.2 mg/dL (2.5-4.9); POTASSIUM 3.1 mmol/L (3.5-5.1)
--- NOTE | 2019-06-13 10:09 | NUR ---
per [facility] liaison for [facility] is asking if the hospital going to recheck covid 19 for a 2nd negative?, is so and it is negative [facility] can accept [facility] for [facility]. cm passed on information to and cm maintenance and operations supervisor. will cont following as needed for dc needs.
--- NOTE | 2019-06-13 16:39 | NUR ---
PT TO DISCHARGE TOMORROW AM TO [facility] PLEASE FAX DC ORDERS/SUMMARY TO FACILITY FAX: AND CALL REPORT TO [phone] AND FAX AMBULANCE FORM TO [phone] AND CALL TO SET UP TRANSPORTATION FACILITY WOULD LIKE TO HAVE TRANSPORT AROUND 1000.
--- NOTE | 2019-06-13 17:01 | NUR ---
PT CONTINUES TO HAVE SOME MINIMAL BLEEDING AROUND TRACH SITE. TRACH SITE CARE DONE NEEDED. TOLERATING TUBE FEEDING. TUBE FEEDING ADVANCED TO GOAL RATE. RECIEVING WATER FLUSHES ORDERED. POTASSIUM LEVEL REMAINS LOW TODAY. GIVEN IV AND PER TUBE REPLACEMENT ORDERED. WOUND CARE DONE DOCUMENTED TO COCCYX WOUND. PLAN FOR DISCHARGE TO [facility] IN NEXT FEW DAYS. DISCUSSED WITH PT'S BROTHER AND UPDATED HIM OF PT STATUS. WILL CONTINUE TO MONITOR PATIENT.
[2019-06-14] VITALS (19 sets, daily range): BP systolic 121–182; BP diastolic 54–81
[2019-06-14 04:45] LABS: ALBUMIN 2.3 g/dL (3.4-5.0); CALCIUM 8.1 mg/dL (8.5-10.1); CREATININE 1.1 mg/dL (0.7-1.3); PHOSPHORUS 2.7 mg/dL (2.5-4.9); POTASSIUM 3.6 mmol/L (3.5-5.1)
--- NOTE | 2019-06-14 07:12 | NUR ---
VITALS REMAINED STABLE THROUGH THE NIGHT. PATIENT ALERT ON MECHANICAL VENTILATION. TOLERATED CPAP DURING THE START OF THE SHIFT AND WAS PLACED BACK ON ACVC AROUND 2200 BY RT. SEE ASSESSMENT FOR MORE INFO.
--- NOTE | 2019-06-14 08:00 | NUR ---
ASSUMED CARE ON THIS PATIENT AT 0700. PATIENT RESTING QUIETLY ON THE VENT WILL CONTINUE TO MONITOR. BROWNISH DRAINAGE AROUND TRACH NOTED.
[2019-06-14] MEDS ORDERED: IPRAT-ALBUT 0.5-3 ML INH (09:06)
[2019-06-14] MEDS ORDERED: BENICAR20 MG PO (09:07)
[2019-06-14] MEDS ORDERED: HEPARIN SO5000 UNIT/ SUBQ (09:07)
[2019-06-14] MEDS ORDERED: SPIRONOLACTONE25 M1 PO (09:08)
[2019-06-14] MEDS ORDERED: PERIDEX 0.12%473 M1 MUCOUS MEM (09:12)
[2019-06-14] MEDS ORDERED: FAMOTIDINE20 MG/2 M2 IV PUSH (09:15)
[2019-06-14] MEDS ORDERED: PREDNISONE 10 M10 MG PO (09:19)
--- NOTE | 2019-06-14 10:30 | NUR ---
REPORT GIVEN TO RUBEN AT [facility] ON PATIENTAT 0945 TRANSPORTATION ARRANGED WITH NON EMERGENCY AMBULANCE TRANSPORT FOR 1100 TO 1130. TO THE LT[facility] FACILITY.
--- NOTE | 2019-06-14 10:55 | NUR ---
DR MORALES AND DR ENGLAND NOTIFIED OF FOUL SMELLING DRAINAGE AROUND TRACH NOTED WITH TRACH CARE AND CENTRAL LINE DRESSING CHANGE FOR DISCHARGE. ORDERS NOTED TO HOLD DICHARGE.
--- NOTE | 2019-06-14 10:56 | NUR ---
[facility] CALLED TO REPORT TRANSFER HAS BEEN CANCELLED FOR TODAY. [facility] NOTIFIED TRANSPORTION COMPANY.
--- NOTE | 2019-06-14 11:56 | NUR ---
DR COOLEY NOTIFIED OF TRACH DRAINAGE. NIMA NOTED AND CULTURE OF TRACH DRAINAGE AND SPUTUM OBTAINED AND SENT TO LAB.
--- NOTE | 2019-06-14 17:16 | NUR ---
PATIENT PROGRESSING TOWARDS OUTCOME GOALS EVIDENT BY ALERT AND RESPONSIVE. PRESENTLY ON CPAP WITH PS AND FIO2 AT 40%, VSS AND RESP RATE IN THE LOWER 20'S. SCHMIDT PATENT AND TOLERATING TUBE FEEDINGS. CONTINUES TO HAVE FOUL SMELLING DRAINAGE AROUND TRACH, BROWNISH IN COLOR.
[2019-06-15] VITALS (17 sets, daily range): BP systolic 113–169; BP diastolic 47–73
[2019-06-15 05:49] LABS: CALCIUM 8.3 mg/dL (8.5-10.1); CREATININE 0.9 mg/dL (0.7-1.3); POTASSIUM 3.3 mmol/L (3.5-5.1)
--- NOTE | 2019-06-15 06:47 | NUR ---
CONTINUES ON THE VENTILATOR. NEEDS ENCOURAGEMENT TO STATE THAT HE HAS PAIN. HE NEEDED SOME FENTANYL LAST NIGHT FOR BACK PAIN. HE SETTLED DOWN AND RELAXED FOR HOURS OF REST. CONTINUES TO HAVE A LARGE AMOUNT OF DRAINAGE FOM TRACHE. IT POOLS BEHIND HIS NECK. NEEDS SOMETHING TO CUSHION THE TRACH CUFF OFF THE SKIN. HE IS RESISTANT TO TURNING, HE BECOMES VERY FRIGHTENED. CAREPLAN REVIEWED.
--- NOTE | 2019-06-15 18:49 | NUR ---
VERY PLEASANT AND COOPERATIVE. REPOSTIONED EVERY 2 HOURS. INCONTINENT OF BROWN SEMIFORMED STOOL X3 THIS SHIFT. REMAINS ON VENT WITH TRACH, SUCTIONED EVERY 2 HOURS AND ORAL CARE PROVIDED. COCCYX DRESSING CHANGED WITH EACH STOOL TO TO SOILAGE. WOUND BED WITH HERNÁNDEZ ESCAR IN WOUND BED, DAKINS SOAKED GAUZE DRESSING. TUBE FEEDING CONTINUED AT GOAL RATE OF 75CC/HR WITH 300 ML WATER FLUSHES EVERY 6. SCHMIDT WITH DARK LESLI URINE OUTPUT.
[2019-06-16 00:01] VITALS: BP 153/60
[2019-06-16 02:01] VITALS: BP 162/69
[2019-06-16 04:06] VITALS: BP 146/83
[2019-06-16 05:56] LABS: CALCIUM 8.6 mg/dL (8.5-10.1); POTASSIUM 3.3 mmol/L (3.5-5.1)
[2019-06-16 06:09] VITALS: BP 163/71
--- NOTE | 2019-06-16 06:53 | NUR ---
PT HAD AN UNEVENTUL NOC. BATH GIVEN AND TRACH CARE DONE SEVEAL TIME DURING THE NOC. BM THIS AM. PT IS STABLE, DENIES PAIN OR DISTRESS. PT EXPETED TO D/C TO SNF TODAY. PT POGRESSING WELL TOWARDS POC GOALS.
[2019-06-16 08:36] VITALS: BP 163/71
[2019-06-16 11:12] LABS: BE(vivo) 7.9 mmol/L (-2 to +3); HCO3 32.6 mmol/L (22.0-26.0); PCO2 46.8 mmHg (35.0-45.0); PO2 105.7 mmHg (80.0-100.0); pH 7.461 (7.360-7.450)
--- NOTE | 2019-06-16 11:27 | NUR ---
Tube feeding clarification: need VITAL AF 1.2 at 75ml/hr with 1 packet of beneprotein in each water flush.
[2019-06-16] MEDS ORDERED: AUGMENTIN400 MG/53 PER TUBE (14:16)
--- NOTE | 2019-06-16 16:08 | NUR ---
DISCHARGE NOTE: SW reviewed chart and spoke with nursing and attending physician. Pt is medically stable for discharge to [facility] today. Pt was not ready for discharge over the weekend. SW updated [facility] liaison. shutdown planner coordinated and notified family. No additional SW needs identified at this time, but is available to assist should needs arise.
--- NOTE | 2019-06-16 16:15 | NUR ---
PT DISCHARGING TODAY TO [facility] SPOKE WITH LILLY IN ADM SHE RECEIVED ORDERS AND REQUESTING TRANSPORT TO BE ARRANGED FOR 4:OO-4:30. ARRANGED TRANSPORT BY AMBULANCE FOR 4:00-4:30 NOTIFIED UNIT AND LEFT MSG WITH PT'S BROTHER. RN TO CALL REPORT TO [phone].
--- NOTE | 2019-06-16 16:37 | NUR ---
PATIENT DISCHARGED TO [facility] AT THIS TIME. VITALS STABLE AT TIME OF DISCHARGED. NEW DRESSING TO WOUNDS.
== END 2019-06-16 16:19 | DRG 4 ==
LOC: ER 22:28 → EROBS 05-23 00:16 → ICU 05-23 00:16
PROVIDERS: Anesthesiology; Emergency Medicine; Hospitalist; Internal Medicine; Internal Medicine Nephrology; Internal Medicine Pulmonary Disease; Nurse Practitioner Family; Pediatrics; Specialist; ADMIT Internal Medicine
PROC: 0BH18EZ Insertion of Endotracheal Airway into Trachea, Via Natural or Artificial Opening Endoscopic (ICD-10-PCS; 2019-05-22)
PROC: B5181ZA Fluoroscopy of Superior Vena Cava using Low Osmolar Contrast, Guidance (ICD-10-PCS; 2019-05-23)
PROC: B548ZZA Ultrasonography of Superior Vena Cava, Guidance (ICD-10-PCS; 2019-05-23)
PROC: 02HV33Z Insertion of Infusion Device into Superior Vena Cava, Percutaneous Approach (ICD-10-PCS; 2019-05-23)
PROC: 5A09357 Assistance with Respiratory Ventilation, Less than 24 Consecutive Hours, Continuous Positive Airway Pressure (ICD-10-PCS; principal; 2019-06-10)
PROC: 5A09357 Assistance with Respiratory Ventilation, Less than 24 Consecutive Hours, Continuous Positive Airway Pressure (ICD-10-PCS; 2019-06-11)
PROC: 0BH18EZ Insertion of Endotracheal Airway into Trachea, Via Natural or Artificial Opening Endoscopic (ICD-10-PCS; 2019-06-11)
PROC: 5A1955Z Respiratory Ventilation, Greater than 96 Consecutive Hours (ICD-10-PCS; 2019-06-12)
PROC: 0DH68UZ Insertion of Feeding Device into Stomach, Via Natural or Artificial Opening Endoscopic (ICD-10-PCS; 2019-06-12)
PROC: 5A09357 Assistance with Respiratory Ventilation, Less than 24 Consecutive Hours, Continuous Positive Airway Pressure (ICD-10-PCS; 2019-06-12)
PROC: 0B113F4 Bypass Trachea to Cutaneous with Tracheostomy Device, Percutaneous Approach (ICD-10-PCS; 2019-06-12)
DX: A41.9 Sepsis, unspecified organism (principal); R65.21 Severe sepsis with septic shock; J96.01 Acute respiratory failure with hypoxia; I50.33 Acute on chronic diastolic (congestive) heart failure; N17.0 Acute kidney failure with tubular necrosis; E43 Unspecified severe protein-calorie malnutrition; J15.212 Pneumonia due to Methicillin resistant Staphylococcus aureus; L03.115 Cellulitis of right lower limb; L03.116 Cellulitis of left lower limb; Z68.42 Body mass index [BMI] 45.0-49.9, adult; E87.0 Hyperosmolality and hypernatremia; I13.0 Hypertensive heart and chronic kidney disease with heart failure and stage 1 through stage 4 chronic kidney disease, or unspecified chronic kidney disease; J98.11 Atelectasis; I83.009 Varicose veins of unspecified lower extremity with ulcer of unspecified site; I48.0 Paroxysmal atrial fibrillation; E66.01 Morbid (severe) obesity due to excess calories; F25.9 Schizoaffective disorder, unspecified; F31.9 Bipolar disorder, unspecified; E11.22 Type 2 diabetes mellitus with diabetic chronic kidney disease; E11.51 Type 2 diabetes mellitus with diabetic peripheral angiopathy without gangrene; K21.9 Gastro-esophageal reflux disease without esophagitis; M81.0 Age-related osteoporosis without current pathological fracture; M10.9 Gout, unspecified; E87.6 Hypokalemia; E83.42 Hypomagnesemia; D72.810 Lymphocytopenia; I87.2 Venous insufficiency (chronic) (peripheral); F03.90 Unspecified dementia, unspecified severity, without behavioral disturbance, psychotic disturbance, mood disturbance, and anxiety; E03.9 Hypothyroidism, unspecified; G40.909 Epilepsy, unspecified, not intractable, without status epilepticus; K75.9 Inflammatory liver disease, unspecified; Z20.828 Contact with and (suspected) exposure to other viral communicable diseases; N18.3 Chronic kidney disease, stage 3 (moderate); R47.02 Dysphasia; Y95 Nosocomial condition; E11.65 Type 2 diabetes mellitus with hyperglycemia; I95.9 Hypotension, unspecified; K29.70 Gastritis, unspecified, without bleeding; Z79.899 Other long term (current) drug therapy; Z71.3 Dietary counseling and surveillance; Z79.01 Long term (current) use of anticoagulants; Z79.4 Long term (current) use of insulin; Z87.891 Personal history of nicotine dependence
CPT/HCPCS: 10078; 10203; 50101; 50386; 50403; 50550; 56525; 62110; 62900

== ENCOUNTER → 2019-08-17 03:26 | Emergency (ER) | payer OTHER ==
[~2019-08-17] VITALS: Ht 188 cm; Wt 158.8 kg
--- NOTE | ~2019-08-17 | EMS ---
[address] [address] EMS Patient Care Report Name: MAUREEN MARTINEZ Room #: REG BRETT Hardy#: [id number] Admission: 08/17/19 Attend Phys: Discharge: Date of : 54 Report #: [id number] THIS REPORT FOR: //name// Report Transmitted: 08/17/2019 05:38 EMS Care Summary [place], [place]/[facility] Incident [id number] @ 08/17/2019 02:32 Incident Location [address] [facility] [address] Patient MAUREEN MARTINEZ Male, 68 Years 1950 Patient Address [id number] [place] [address] [address] [place] [phone] Patient History Atrial Fibrillation, Chief Complaint CARDIAC ARREST Disposition Transported [place] Dispatch Reason Cardiac Arrest/ Transported To [facility] Narrative DISPATCHED FOR A CARDIAC ARREST. UPON ARRIVAL ON SCENE, P45 HAD ALREADY ARRIVED AND TAKEN OVER CPR THAT WAS BEING PERFORMED BY STAFF. AFTER QUICK ASSESSMENT, I TOLD THEM TO MOVE PT TO FLOOR AND CONTINUE CPR. I INITIATED IO ACCESS AND ADMINISTERED EPINEPHRINE AND BEGAN NS. I PLACED CAPNOGRAPHY AND OXYGEN ON TRACH TUBE THAT WAS BEING VENTILATED WITH BVM BY P45 PERSONNEL. STAFF INFORMED ME THAT THE ARREST WAS UNWITTNESSED AND THEY STATED "IT COULDN'T HAVE BEEN MORE THAN 15 MINUTES, WE WERE JUST IN HERE." THEY INFORMED ME THEY BEGAN CPR PRIOR [address] [address] EMS Patient Care Report Name: MAUREEN MARTINEZ Room #: REG [facility].#: [id number] Admission: 08/17/19 Attend Phys: Discharge: Date of : 54 Report #: [id number] TO P45 ARRIVAL AND HAD BEEN USING AN AED THAT DID NOT ADVISE ANY SHOCKS. PT WAS INITIALLY IN ASYSTOLE, PT WAS IN PEA AFTER 2 EPI. PT WAS IN VTAC AFTER 5 EPI, SHOCK DELIVERED, PT RETURNED TO PEA. PT TX INTIATED DUE TO RHYTHM CHANGE. PT MOVED ON TO [facility] AND SECURED, MOVED INTO AMBULANCE WITHOUT ISSUE. CPR CONTINUED THROUGHOUT TX. PT IN ASYSTOLE ON ARRIVAL AT ER. PT PRONOUNCED IN ER. Initial Vitals @03:10P: 67,R: 20,EtCO2: 71, @03:70QuZM5: 14, @02:57P: 287,R: 9,EtCO2: 32, @03:06P: 49,R: 12, @03:00P: 122,EtCO2: 33, @02:59P: 44,R: 9,EtCO2: 38, @03:13P: 56,R: 12,EtCO2: 57, @02:46P: 231, @02:49P: 133,R: 11,EtCO2: 26, @02:50P: 111,R: 10,EtCO2: 35, @02:53P: 66,R: 9,EtCO2: 34, @03:05P: 49,R: 12,EtCO2: 56, @03:00P: 45, @03:03P: 46,R: 9,EtCO2: 46, @03:15P: 105,R: 9,Pain: 6/10,GCS: 15,EtCO2: 39,CA Suspected: false @02:46P: 166,R: 12,Pain: 6/10,GCS: 3,CA Suspected: false @03:04P: 47,R: 13,EtCO2: 50, @02:53P: 94,R: 10,EtCO2: 26, @02:48P: 134,Glucose: 128, @03:09P: 39,R: 22,EtCO2: 51, @03:10P: 62,R: 8,EtCO2: 80, @03:08P: 49,R: 14,EtCO2: 65, @02:50P: 110,R: 9,EtCO2: 27, @03:02P: 113,R: 11,EtCO2: 14, @02:54P: 64,R: 9,EtCO2: 32, @02:57P: 279,R: 8,EtCO2: 29, @03:00P: 177,R: 8,EtCO2: 53, @02:52R: 9,EtCO2: 26, @02:41Pain: 2/10,GCS: 3, Assessments @02:41MENTAL:Unresponsive,SKIN:Cyanotic,Cold,Mottled,HEENT:Eyes: Right: Non-Reactive,Eyes: Left: Non-Reactive,Eyes: Left Pupil: 6-mm,Eyes: Right Pupil: 6-mm,Neck/Airway: Other,Head/Face: No Abnormalities,LUNG SOUNDS:General: Diarrhea,Right Upper: Other,Left Upper: No Abnormalities,Left Lower: No Abnormalities,Right Lower: No Abnormalities,ABDOMEN:General: Diarrhea,Right Upper: Other,Left Upper: No Abnormalities,Left Lower: No Abnormalities,Right [facility] [address] [place] [id number] EMS Patient Care Report Name: MAUREEN MARTINEZ [facility] [id number] Admission: 08/17/19 Attend Phys: Discharge: Date of : 54 Report #: [id number] Lower: No Abnormalities,PELVIS//GI:Pelvis GUOther,EXTREMITIES:Capillary Refill: Right Upper: > 5 Sec,Capillary Refill: Left Upper: > 5 Sec,Left Arm: No Abnormalities,Right Arm: No Abnormalities,Left Leg: No Abnormalities,Right Leg: No Abnormalities,PULSE:Radial: Absent,Carotid: Absent,NEURO:No Abnormalities,@02:55MENTAL:Unresponsive,SKIN:Cold,Mottled,Cyanotic,HEENT:Eyes: Right: Non-Reactive,Eyes: Left: Non-Reactive,Eyes: Right Pupil: 6-mm,Eyes: Left Pupil: 6-mm,Head/Face: No Abnormalities,LUNG SOUNDS:Right Upper: Other,General: Diarrhea,Left Upper: No Abnormalities,Left Lower: No Abnormalities,Right Lower: No Abnormalities,ABDOMEN:Right Upper: Other,General: Diarrhea,Left Upper: No Abnormalities,Left Lower: No Abnormalities,Right Lower: No Abnormalities,PELVIS//GI:Pelvis GUOther,EXTREMITIES:Capillary Refill: Right Upper: > 5 Sec,Capillary Refill: Left Upper: > 5 Sec,Left Arm: No Abnormalities,Right Arm: No Abnormalities,Left Leg: No Abnormalities,Right Leg: No Abnormalities,PULSE:Radial: Absent,Femoral: Absent,Carotid: Absent,NEURO:No Abnormalities, Impression Cardiac arrest Procedures @02:57Epinephrine 1:10 - 1 Milligrams (mg) - Intraosseous (IO)Response: Unchanged@03:02Response: UnchangedSucceeded@03:15Epinephrine 1:10 - 1 Milligrams (mg) - Intravenous (IV)Response: Unchanged@PTAResponse: UnchangedSucceeded@03:10Epinephrine 1:10 - 1 Milligrams (mg) - Intraosseous (IO)Response: Unchanged@02:49Epinephrine 1:10 - 1 Milligrams (mg) - Intraosseous (IO)Response: Unchanged@02:44Epinephrine 1:10 - 1 Milligrams (mg) - Intraosseous (IO)Response: Unchanged@02:53Epinephrine 1:10 - 1 Milligrams (mg) - Intraosseous (IO)Response: Unchanged@03:00Epinephrine 1:10 - 1 Milligrams (mg) - Intraosseous (IO)Response: Improved@03:04Epinephrine 1:10 - 1 Milligrams (mg) - Intraosseous (IO)Response: Unchanged@02:43Normal Saline (.9% NaCl) 500cc (EZ-IO (Yellow 45mm)) Site: PG-Wgwke-Kzyax ProximalResponse: UnchangedSucceeded@03:06StretcherResponse: Unchanged@02:41ALS AssessmentResponse: UnchangedSucceeded@02:42Oxygen FlowRate: 15 Device: Bag Valve Mask (BVM) Response: UnchangedSucceeded Timeline SHIFT FOREMAN,Response: UnchangedSucceeded, 02:31,Call Received 02:31,Dispatch Notified 02:32,Dispatched 02:34,En Route 02:39,On Scene 02:41,At Patient 02:41,ALS Assessment,Response: UnchangedSucceeded, 02:41,BP: / M,PULSE: ,RR: R,SPO2: Ox,ETCO2: ,BG: ,PAIN: 2,GCS: 3, 02:42,Oxygen FlowRate: 15 Device: Bag Valve Mask (BVM) Response: [facility] [address] [address] EMS Patient Care Report Name: MAUREEN MARTINEZ Room #: [facility] Rajesh#: [id number] Admission: 08/17/19 Attend Phys: Discharge: Date of : 54 Report #: [id number] UnchangedSucceeded, 02:43,Normal Saline (.9% NaCl) 500cc EZ-IO (Yellow 45mm) Site: DU-Wppqw-Rcgaf Proximal,Response: UnchangedSucceeded, 02:44,Epinephrine 1:10 - 1 Milligrams (mg) - Intraosseous (IO),Response: Unchanged 02:46,BP: / M,PULSE: 166,RR: 12 R,SPO2: Ox,ETCO2: ,BG: ,PAIN: 6,GCS: 3, 02:46,BP: / M,PULSE: 231,RR: R,SPO2: Ox,ETCO2: ,BG: ,PAIN: ,GCS: , 02:48,BP: / M,PULSE: 134,RR: R,SPO2: Ox,ETCO2: ,B,PAIN: ,GCS: , 02:49,Epinephrine 1:10 - 1 Milligrams (mg) - Intraosseous (IO),Response: Unchanged 02:49,BP: / M,PULSE: 133,RR: 11 R,SPO2: Ox,ETCO2: 26 ,BG: ,PAIN: ,GCS: , 02:50,BP: / M,PULSE: 110,RR: 9 R,SPO2: Ox,ETCO2: 27 ,BG: ,PAIN: ,GCS: , 02:50,BP: / M,PULSE: 111,RR: 10 R,SPO2: Ox,ETCO2: 35 ,BG: ,PAIN: ,GCS: , 02:52,BP: / M,PULSE: ,RR: 9 R,SPO2: Ox,ETCO2: 26 ,BG: ,PAIN: ,GCS: , 02:53,BP: / M,PULSE: 66,RR: 9 R,SPO2: Ox,ETCO2: 34 ,BG: ,PAIN: ,GCS: , 02:53,Epinephrine 1:10 - 1 Milligrams (mg) - Intraosseous (IO),Response: Unchanged 02:53,BP: / M,PULSE: 94,RR: 10 R,SPO2: Ox,ETCO2: 26 ,BG: ,PAIN: ,GCS: , 02:54,BP: / M,PULSE: 64,RR: 9 R,SPO2: Ox,ETCO2: 32 ,BG: ,PAIN: ,GCS: , 02:57,BP: / M,PULSE: 279,RR: 8 R,SPO2: Ox,ETCO2: 29 ,BG: ,PAIN: ,GCS: , 02:57,Epinephrine 1:10 - 1 Milligrams (mg) - Intraosseous (IO),Response: Unchanged 02:57,BP: / M,PULSE: 287,RR: 9 R,SPO2: Ox,ETCO2: 32 ,BG: ,PAIN: ,GCS: , 02:59,BP: / M,PULSE: 44,RR: 9 R,SPO2: Ox,ETCO2: 38 ,BG: ,PAIN: ,GCS: , 03:00,Epinephrine 1:10 - 1 Milligrams (mg) - Intraosseous (IO),Response: Improved 03:00,BP: / M,PULSE: 45,RR: R,SPO2: Ox,ETCO2: ,BG: ,PAIN: ,GCS: , 03:00,BP: / M,PULSE: 122,RR: R,SPO2: Ox,ETCO2: 33 ,BG: ,PAIN: ,GCS: , 03:00,BP: / M,PULSE: 177,RR: 8 R,SPO2: Ox,ETCO2: 53 ,BG: ,PAIN: ,GCS: , 03:02,Response: UnchangedSucceeded, 03:02,BP: / M,PULSE: 113,RR: 11 R,SPO2: Ox,ETCO2: 14 ,BG: ,PAIN: ,GCS: , 03:02,BP: / M,PULSE: ,RR: R,SPO2: Ox,ETCO2: 14 ,BG: ,PAIN: ,GCS: , 03:03,BP: / M,PULSE: 46,RR: 9 R,SPO2: Ox,ETCO2: 46 ,BG: ,PAIN: ,GCS: , 03:04,Epinephrine 1:10 - 1 Milligrams (mg) - Intraosseous (IO),Response: Unchanged 03:04,BP: / M,PULSE: 47,RR: 13 R,SPO2: Ox,ETCO2: 50 ,BG: ,PAIN: ,GCS: , 03:05,BP: / M,PULSE: 49,RR: 12 R,SPO2: Ox,ETCO2: 56 ,BG: ,PAIN: ,GCS: , 03:06,Stretcher,Response: Unchanged 03:06,BP: / M,PULSE: 49,RR: 12 R,SPO2: Ox,ETCO2: ,BG: ,PAIN: ,GCS: , 03:08,BP: / M,PULSE: 49,RR: 14 R,SPO2: Ox,ETCO2: 65 ,BG: ,PAIN: ,GCS: , 03:09,BP: / M,PULSE: 39,RR: 22 R,SPO2: Ox,ETCO2: 51 ,BG: ,PAIN: ,GCS: , 03:10,Epinephrine 1:10 - 1 Milligrams (mg) - Intraosseous (IO),Response: Unchanged 03:10,BP: / M,PULSE: 67,RR: 20 R,SPO2: Ox,ETCO2: 71 ,BG: ,PAIN: ,GCS: , 03:10,BP: / M,PULSE: 62,RR: 8 R,SPO2: Ox,ETCO2: 80 ,BG: ,PAIN: ,GCS: , 03:10,Depart Scene [address] [address] EMS Patient Care Report Name: MICHELLEMAUREEN Mcconnell Room #: REG BRETT Hardy#: [id number] Admission: 08/17/19 Attend Phys: Discharge: Date of : 54 Report #: [id number] 03:13,BP: / M,PULSE: 56,RR: 12 R,SPO2: Ox,ETCO2: 57 ,BG: ,PAIN: ,GCS: , 03:15,Epinephrine 1:10 - 1 Milligrams (mg) - Intravenous (IV),Response: Unchanged 03:15,BP: / M,PULSE: 105,RR: 9 R,SPO2: Ox,ETCO2: 39 ,BG: ,PAIN: 6,GCS: 15, 03:17,At Destination 03:32,Call Closed Disclaimer v1.1 Copyright 2020 [employer] This EMS Care Summary contains data elements from the applicable legal record (which may be displayed differently). It is designed to provide pertinent information for the following purposes: continuity of care, clinical quality, and state data reporting. The complete legal record is available to ED staff and administrators of the receiving hospital in [employer]'s Patient Tracker. All data is provided "as is."
[2019-08-17 03:26] VITALS: BP 0/0
[~2019-08-17 03:26] MED LIST changes: +AUGMENTIN400 MG/53 PER TUBE; +BENICAR20 MG PO; +COMBIVENT INH; +FAMOTIDINE20 MG/2 M2 IV PUSH; +HEPARIN SO5000 UNIT/ SUBQ; +IPRAT-ALBUT 0.5-3 ML INH; +KLOR-CON M2020 MEQ PO; +LAC-HYDRIN FIV226 GM TOP; +PERIDEX 0.12%473 M1 MUCOUS MEM; +PREDNISONE 10 M10 MG PO; +SPIRONOLACTONE25 M1 PO
== END ==
LOC: ER 03:26
DX: I46.9 Cardiac arrest, cause unspecified (principal); I50.9 Heart failure, unspecified; I48.91 Unspecified atrial fibrillation; K21.9 Gastro-esophageal reflux disease without esophagitis; N18.9 Chronic kidney disease, unspecified; E11.9 Type 2 diabetes mellitus without complications; E03.9 Hypothyroidism, unspecified; M10.9 Gout, unspecified; Z87.891 Personal history of nicotine dependence; Z79.899 Other long term (current) drug therapy; Z88.8 Allergy status to other drugs, medicaments and biological substances